=== PATIENT | female | born 1950 | race Caucasian/White ===

== ENCOUNTER 2018-08-08 10:14 | Inpatient (IN) | payer MEDICARE, OTHER ==
[2018-08-08 11:43] VITALS: BMI 38.0
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
--- NOTE | 2018-08-08 12:31 | RAD ---
Date of service: 08/08/2018 HISTORY: pes COMPARISON: 05/05/2018 FINDINGS: LUNGS: No active pulmonary disease. PLEURA: No significant pleural effusion identified, no pneumothorax apparent. CARDIOVASCULAR: No aortic atherosclerotic calcification present. Normal cardiac size. No pulmonary vascular congestion. OSSEOUS STRUCTURES: No significant abnormalities. VISUALIZED UPPER ABDOMEN: Normal. OTHER FINDINGS: None. IMPRESSION: No active disease.
[2018-08-08 13:34] LABS: BASO # 0.01 K/mm3 (0.0-2.0); BASO % 0.1 % (0.0-3.0); EOS # 0.1 (0.0-0.7); EOS % 0.7 % (1.5-5.0); GRAN # 4.81 (1.4-6.5); HEMOGLOBIN 15.5 g/dL (12.0-16.0); LYMPH # 2.3 (1.2-3.4); LYMPH % 30.4 % (22.0-35.0); MEAN CELL VOLUME 90.3 fl (80.0-105.0); MEAN CORPUSCULAR HGB CONC 35.4 g/dl (31.0-37.0); MEAN PLATELET VOLUME 11.5 fl (7.0-11.0); MONO # 0.3 (0.1-0.6); MONO % 3.8 % (1.0-6.0); PH,URINE 6.5 (4.7-8.0); RBC 4.85 10^6/uL (3.5-6.1); RED CELL DISTRIBUTION WIDTH 12.3 % (11.5-14.5); URINE BILIRUBIN NEGATIVE (NEGATIVE); URINE BLOOD NEGATIVE (NEGATIVE); URINE GLUCOSE (UA) NEGATIVE (NEGATIVE); URINE LEUKOCYTE ESTERASE NEGATIVE Leu/uL (NEGATIVE); URINE PROTEIN NEGATIVE mg/dL (<30 mg/dL); URINE UROBILINOGEN 0.2 E.U./dL (<1 E.U./dL); WHITE BLOOD COUNT 7.4 10^3/uL (4.5-11.0)
[2018-08-08 13:35] LABS: URINE APPEARANCE CLEAR (CLEAR); URINE COLOR YELLOW (YELLOW)
[2018-08-08 13:46] LABS: ALB/GLOB RATIO 1.4 (1.1-1.8); ALBUMIN 4.4 g/dL (3.0-4.8); ALT/SGPT 25 U/L (7-56); AST/SGOT 21 U/L (14-36); BLOOD UREA NITROGEN 28 mg/dL (7-21); CALCIUM 9.9 mg/dL (8.4-10.5); GFR NON-AFRICAN AMERICAN > 60
[2018-08-08 13:47] LABS: ACETAMINOPHEN < 10.0 ug/ml (10.0-20.0); SALICYLATE < 1 mg/dL (2.0-20.0)
[2018-08-08 13:59] LABS: BARBITURATES, UR NEGATIVE (NEGATIVE); BENZODIAZEPINES, UR NEGATIVE (NEGATIVE); OPIATES, UR NEGATIVE (NEGATIVE); PHENCYCLIDINE, UR NEGATIVE (NEGATIVE)
[2018-08-08 15:27] VITALS: O2SAT 99
--- NOTE | 2018-08-08 16:54 | CARD ---
APPROVED REPORT Date of service: 08/08/2018 EKG Measurement Heart [id number] <Conclusion> Sinus bradycardia Otherwise normal ECG
--- NOTE | 2018-08-08 18:53 | PCM.BM ---
<Shilpi Dunlap - Last Filed: 08/08/18 18:50> Treatment Plan Problems - Problems identified on initial assessmt ANXIETY Date Initiated: 08/08/18 Time Initiated: 19:00 Assessment reference: NA Status: Active Priority: 1 ALTERED SLEEP PATTERN Date Initiated: 08/08/18 Time Initiated: 19:00 Assessment reference: NA Status: Active Priority: 2 MEDICATION NON ADHERENCE Date Initiated: 08/08/18 Time Initiated: 19:00 Assessment reference: NA Status: Active Priority: 3 INEFFECTIVE IMPULSE CONTROL Date Initiated: 08/08/18 Time Initiated: 19:00 Assessment reference: NA Priority: 4 Treatment assets and liabiliti Patient Assests: cooperative, insightful, motivated, ADL independent, good support system, cognitively intact, strong nicholas Patient Liabilities: live alone, dietary restrictions, medical problems - Milieu Protocol Maintain good personal hygiene: every shift Encourage regular showers, every shift Remind patient to perform daily oral care, every shift Assist patient to perform ADL's Maintain personal safety: daily Educate patient to report safety concerns to staff, daily Monitor environment for contraband/sharps Medication safety: Monitor for expected outcome, potential side effects: daily, Assess barriers to learning: daily, Assess readiness for medication education: daily Discharge/Continuing Care - Education Needs Education Needs: Patient Medication, Patient Diagnosis/Disease Process, Patient Coping Skills, Patient Community resources, Patient Activities of Daily Living, Patient Pain, Patient Nutrition, Patient Health Practices/Safety, Patient Personal Hygiene/Grooming, Patient Aftercare Safety Plan - Discharge Discharge Criteria: Free of agitation, Normal sleep pattern, Ability to care for self Discharge to:: Home <Michelle Montiel - Last Filed: 08/09/18 14:08> - Diagnosis (1) JAYLIN (generalized anxiety disorder) Status: Acute Interventions: Psychoeducation Psychopharmacology/adjustment of medications as needed/ monitoring possible side effects Evaluate pt on daily basis Discussion of importance of being compliant with medications and follow up appointments Suicide and homicide risk assessment and prevention, coping strategies, safety plan Reduction of symptoms Relaxation techniques and breathing exercises Improve functional status Family involvement Cognitive behavioral therapy as outpatient 08/09/18 14:09 (2) Bipolar disorder Status: Acute Interventions: 08/09/18 14:10 Psychoeducation Psychopharmacology/adjustment of medications as needed/ monitoring possible side effects Monitor blood level of mood stabilizers Evaluate pt on daily basis Compliance with medications and follow up appointments Suicide and homicide risk assessment and prevention, coping strategies, safety plan Relapse prevention Reduction of symptoms Improve functional status Family involvement As outpatient: cognitive behavioral therapy <Agnes Morrison Y - Last Filed: 08/10/18 16:09> Family Contact Family involvement: Family/SO is involved Family contact: Patient agrees to contact Family contact name: Pramod Reynaga(son) Family contacted how many times per week?: 2 - Outside Agency [facility] Care involvment: Information-sharing Agency contact name: [facility] Agency contact number: [phone]
[2018-08-08] MEDS: Insulin Lispro (humaLOG) LOW Coverage SC SCH (21:19)
[2018-08-08] MEDS ORDERED: Divalproex 250 mg DR (BID formulation) PO SCH (22:00)
[2018-08-09 07:05] LABS: HDL CHOLESTEROL 48 mg/dL (29-60)
[2018-08-09 07:16] LABS: LDL CHOLESTEROL 185 mg/dL (0-129)
[2018-08-09 07:19] LABS: FREE T4 1.19 ng/dL (0.78-2.19)
[2018-08-09 07:41] VITALS: RESP 20
[2018-08-09] MEDS: Insulin Lispro (humaLOG) LOW Coverage SC SCH ×4 (09:23→21:19)
--- NOTE | 2018-08-09 11:59 | PN ---
DATE: 08/09/2018 SUBJECTIVE: Patient is in [facility], admitted into the behavioral care unit, room 519, bed 2. The patient presented to the emergency room with depression requesting help. Patient also complains of adverse reaction to medication (Abilify). Patient has significant medical history. She is an insulin-dependent diabetic. Patient was treated for hypertension. Patient has history of lower back pain. Patient denied history of any surgery except D and C that is dilatation and curettage, CLAIM TRAINEE procedure. Patient has no past history of cardiac problems. Patient does not have any cardiac history or neurological problem excepting for tremors. Patient requested hemoglobin A1c to be done today and that shows education of knowledge of diabetes mellitus. Patient also alleges to having history of hyperlipidemia. PHYSICAL EXAMINATION: GENERAL: The patient is pleasant, answers all questions, quite alert. HEENT: The patient's head is normocephalic. Patient has no masses or enlargement of orbits. NECK: Thyroid is not enlarged. JVP is flat. No lymphadenopathy. HEART: Normal sinus rhythm. S1, S2 present. Sinus bradycardia. No murmurs. LUNGS: Trachea is central. Breath sounds are vesicular. No adventitious sounds. Respiratory rate is 18 per minute. ABDOMEN: Soft. Liver and spleen not palpable. Obesity present. Truncal obesity. The patient has no masses or enlargement of organs. 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 Cranial nerves II to XII are intact. Patient's motor and sensory function is within normal range. Patient able to ambulate. Her cerebellar functions are okay. There is no overt tremors noted at this time. LABORATORY DATA: Patient's blood work, her white count is 7000, hemoglobin 15.5. Patient's chemistry, patient's blood sugar was 181 yesterday, is 129 today. Patient's potassium is 3.5. Patient's cholesterol is 291. Patient's thyroid function study seemed to be okay. MEDICATIONS: Patient's list of medications. Patient is on ramipril 10 mg daily, Amaryl 4 mg daily, patient is on Celexa 40 mg daily, Depakote 250 mg at night, patient gets aspirin 81 mg daily, insulin coverage, patient is on Januvia 100 mg daily, hydrochlorothiazide is substitute for chlorthalidone, the patient gets 25 mg daily, metoprolol 25 mg daily, Klonopin 0.5 mg twice daily. ASSESSMENT AND PLAN: Patient is overweight and we will continue medical management and follow up on test results. We will request hemoglobin A1c to be done today. Kishor Yen MD [email or web address]
--- NOTE | 2018-08-09 14:08 | PCM.PSYCH ---
Initial Psychiatric Evaluation - Initial Psychiatric Evaluation Type of Admission: Voluntary Legal Status: Capacity (Patient has capacity to sign consent for treatment) Chief Complaint (in patient's own words): "I knew that I need to come to the hospital because I was not doing so well, for the past four weeks I am going downhill, I feel very hopeless, helpless, my f rimarquita said that it is not me, she drove me to the hospital, oh God, I want to see my grand kids growing..." Patient's Reaction to Hospitalization: Pt was admitted for evaluation of depression, uncontrolled anxiety, inability of function, pt stopped taking Abilify due to uncontrolled tremor, feeling of helplessness, hopelessness, worthlessness and guilt. History of Present Illness and Precipitating Events: shortly pt is 68 yo female with reported h/o bipolar disorder, JAYLIN, denied h/o suicidal attempts, denied history of psychiatric admissions, currently pt is under care of [facility] at [facility], pt was brought to ED by her friend, looking for help for worsening depression/anxiety, inability to function. pt needs further evaluation and stabilization. pt was seen and examined at the treatment team meeting, pt appeared older than her chronological age, pt had acceptable personal hygiene, earl/uncombed/curly hair, tearful, anxious, overproductive speech, very hard to interview because patient had difficulties to stay focus and concentrate, pt was ambulating slowly/cautious saying that she has chronic back pain. Patient reported for past 4 weeks she was going "downhill" patient reported that she has difficulty to fall asleep, stay asleep, difficulty to stay focused and concentrate, healing of hopelessness and helplessness, feeling very depressed and "desperate". Patient reported that simple task as taking a shower "making me feel very anxious, I was not showering lately", patient reported that she lost her appetite, does not want to ", not interested in her daily activities. Patient reported that she was trying her best to attend groups at the [facility] but she was not able to participate because "I was crying constantly". Patient denied suicidal ideation denied intent or plan. Patient reported that she feels very anxious, restless, "my mind is racing I cannot stay focused." Patient denied hearing voices, denied seeing things, denied paranoid ideation, patient does not appear to be psychotic. Patient denies using drugs, denied alcohol consumption, denied smoking. Patient denied history of being abused, denied physical, sexual, emotional abuse. Past psychiatric history: Patient denied history of being admitted to the psychiatric inpatient unit, denied history of suicidal attempts. Patient currently under care or of [facility] and [facility], about 6 months ago patient was started on Abilify, "I was not able to tolerate it I developed severe tremor, I stopped taking it, as a result I became very very depressed". Patient reported that her [facility] started cogentin, "but it does not make sense to take medication for another medication". Medical h/o: diabetes, HTN, diabetic neuropathy. Family history: Patient's grandfather was hospitalized into the [facility], had electroconvulsive therapy, patient is not sure if her father had history of suicidal attempts. TRAVON FREEMAN [address] [phone] Depakote ER 250mg PO QHS Abilify 10mg PO QAM Celexa 40mg PO QAM Buspar 10mg 2 TAB PO BID Vistaril 25mg PO QHS As per nursing staff patient is calm, cooperative, no behavioral incidents. 08/08/18 11:30 08/08/18 11:30 Lab Results 08/09/18 07:25: POC Glucose (mg/dL) 129 H 08/09/18 06:15: Triglycerides 133, Cholesterol 291 H, LDL Cholesterol Direct 185 H, HDL Cholesterol 48 08/09/18 06:15: Free T4 1.19, TSH 3rd Generation 2.42 08/08/18 20:25: POC Glucose (mg/dL) 181 H 08/08/18 11:30: Alcohol, Quantitative < 10 08/08/18 11:30: Salicylates < 1 L, Acetaminophen < 10.0 L 08/08/18 11:30: Urine Opiates Screen Negative, Urine Methadone Screen Negative, Ur Barbiturates Screen Negative, Ur Phencyclidine Scrn Negative, Ur Amphetamines Screen Negative, U Benzodiazepines Scrn Negative, U Oth Cocaine Metabols Negative, U Cannabinoids Screen Negative 08/08/18 11:30: Sodium 136, Potassium 3.5 L, Chloride 97 L, Carbon Dioxide 31, Anion Gap 11, BUN 28 H, Creatinine 0.8, Est GFR ( Amer) > 60, Est GFR (Non-Af Amer) > 60, Random Glucose 121 H, Calcium 9.9, Total Bilirubin 0.6, AST 21, ALT 25, Alkaline Phosphatase 48, Total Protein 7.4, Albumin 4.4, Globulin 3.0, Albumin/Globulin Ratio 1.4 08/08/18 11:30: Urine Color Yellow, Urine Appearance Clear, Urine pH 6.5, Ur Specific [place] 1.010, Urine Protein Negative, Urine Glucose (UA) Negative, Urine Ketones Negative, Urine Blood Negative, Urine Nitrate Negative, Urine Bilirubin Negative, Urine Urobilinogen 0.2, Ur Leukocyte Esterase Negative 08/08/18 11:30: WBC 7.4, RBC 4.85, Hgb 15.5, Hct 43.8, MCV 90.3, MCH 32.0, MCHC 35.4, RDW 12.3, Plt Count 224, MPV 11.5 H, Gran % 65.0, Lymph % (Auto) 30.4, [place] % (Auto) 3.8, Eos % (Auto) 0.7 L, Baso % (Auto) 0.1, Gran # 4.81, Lymph # (Auto) 2.3, [place] # (Auto) 0.3, Eos # (Auto) 0.1, Baso # (Auto) 0.01 Vital Signs Temp Pulse Resp BP Pulse Ox 08/09/18 09:30 66 172/74 H 08/09/18 07:40 98.4 F 46 L 20 119/56 L 08/08/18 19:11 55 L 142/65 08/08/18 15:25 99 08/08/18 15:05 66 18 142/50 L 95 08/08/18 11:40 97.8 F 54 L 18 140/83 99 08/08/18 10:30 98.2 F 55 L 18 128/58 L 96 The patient failed the outpatient lower level of care: Yes Current Medications: Active Medications Generic Name Dose Route Start Last Admin Trade Name Freq PRN Reason Stop Dose Admin Aspirin 81 mg 08/09/18 08:00 Ecotrin PO DAILY BRIDGETT Citalopram Hydrobromide 40 mg 08/09/18 08:00 Celexa PO DAILY BRIDGETT Clonazepam 0.5 mg 08/08/18 16:49 Klonopin PO BID PRN Anxiety Protocol Divalproex Sodium 250 mg 08/08/18 22:00 08/08/18 21:21 Juana Brewster (*Bid*) PO 250 mg HS BRIDGETT Administration Protocol Glimepiride 4 mg 08/09/18 08:00 Amaryl PO DAILY BRIDGETT Hydrochlorothiazide 25 mg 08/09/18 08:00 Hydrodiuril PO DAILY BRIDGETT Insulin Human Lispro 0 units 08/08/18 22:00 08/08/18 21:19 Humalog Low SC 1 u ACHS BRIDGETT Administration Protocol Metoprolol Tartrate 25 mg 08/08/18 17:00 08/08/18 19:11 Lopressor PO 25 mg BRKDIN BRIDGETT Administration Ramipril 10 mg 08/09/18 08:00 Altace PO DAILY BRIDGETT Sitagliptin Phosphate 100 mg 08/09/18 08:00 Januvia PO DAILY BRIDGETT Zaleplon 5 mg 08/08/18 16:50 08/08/18 21:19 Sonata PO 5 mg HS PRN Administration Insomnia This radio news writer educated patient about medications, risk/benefits/alternatives discussed, patient agreed with treatment plan Present on Admission - Present on Admission Any Indicators Present on Admission: No Review of Systems - Review of Systems Systems not reviewed;Unavailable: Acuity of Condition - Constitutional Constitutional: As Per HPI - EENT Eyes: As Per HPI Ears: As Per HPI Nose/Mouth/Throat: As Per HPI - Breasts Breasts: As Per HPI - Cardiovascular Cardiovascular: As Per HPI - Respiratory Respiratory: As Per HPI - Gastrointestinal Gastrointestinal: As Per HPI - Genitourinary Genitourinary: As Per HPI - Reproductive: Female Reproductive:Female: As Per HPI - Menstruation Menstruation: As Per HPI - Musculoskeletal Musculoskeletal: As Per HPI - Integumentary Integumentary: As Per HPI - Neurological Neurological: As Per HPI - Psychiatric Psychiatric: As Per HPI - Endocrine Endocrine: As Per HPI - Hematologic/Lymphatic Hematologic: As Per HPI Past Patient History - Past Psychiatric History Previous Treatment History: Intensive Outpatient Prior Professional Help: As per HPI Prior Psychiatric Treatment: As per HPI At [facility] hospital: As per HPI Duration: As per HPI Nature of Treatment: As per HPI Explanation of prior treatment: As per HPI - PSYCHIATRIC Hx Psychophysiologic Disorder: Yes Hx Bipolar Disorder: Yes Hx Substance Use: No - Infectious Disease Hx of Infectious Diseases: None - CARDIAC Hx Cardiac Disorders: No Hx Hypertension: Yes Hx Pacemaker: No - PULMONARY Hx Respiratory Disorders: No - NEUROLOGICAL HX Cerebrovascular Accident: Yes (1997) Hx Paralysis: No Hx Transient Ischemic Attacks (TIA): Yes (1997) - RENAL Hx Chronic Kidney Disease: No - ENDOCRINE/METABOLIC Hx Endocrine Disorders: No Hx Diabetes Mellitus Type 1: Yes - HEMATOLOGICAL/ONCOLOGICAL Hx Blood Transfusions: No Hx Blood Transfusion Reaction: No - MUSCULOSKELETAL/RHEUMATOLOGICAL Hx Musculoskeletal Disorders: Yes Hx Back Pain: Yes - GENITOURINARY/GYNECOLOGICAL Hx Sexually Transmitted Disorders: No - SURGICAL HISTORY Hx Surgeries: Yes - ANESTHESIA Hx Anesthesia Reactions: No Hx Malignant Hyperthermia: No - Medical/Surgical History Reviewed & confirmed: by az Meds Allergies/Adverse Reactions: Allergies Allergy/AdvReac Type Severity Reaction Status Date / Time No Known Allergies Allergy Verified 08/08/18 20:12 Mental Status Examination - Personal Presentation Personal Presentation: Looks older than stated age - Affect Affect: Flat (And tearful) - Motor Activity Motor Activity: Calm - Reliability in Providing Information Reliability in Providing Information: Fair - Speech Speech: Other (Overproductive) - Mood Mood: Depressed, Anxious - Formal Thought Process Formal Thought Process: No Impairment - Obsessions/Compulsions Obsessions: None Compulsions: None - Cognitive Functions Orientation: Person, Place, Situation, Time Sensorium: Alert Attention/Concentration: Easily distracted Estimate of Intelligence: Average Judgement: Intact, as evidence by: Insight regarding need for hospitalization - Risk Risk: Self-mutilation, Diminished functioning - Strength & Assets Inventory Strength & Assets Inventory: Intelligence, Family support, Spiritual affiliations, Life experience, Cooperative, Other (No psychosis, good compliance) - Limitations Limitations: Other (Severe symptoms) Psychiatric Physical Exam - Physical Exam Reviewed and confirmed: Emergency Department Physical Exam Results - Vital Signs Recent Vital Signs: Last Vital Signs Temp 98.4 F 08/09/18 07:40 Pulse 46 L 08/09/18 07:40 Resp 20 08/09/18 07:40 BP 119/56 L 08/09/18 07:40 Pulse Ox 99 08/08/18 15:25 - Labs Result Diagrams: 08/08/18 11:30 08/08/18 11:30 Labs: Laboratory Results - last 24 hr 08/08/18 08/08/18 08/08/18 11:30 11:30 11:30 WBC 7.4 RBC 4.85 Hgb 15.5 Hct 43.8 MCV 90.3 MCH 32.0 MCHC 35.4 RDW 12.3 Plt Count 224 MPV 11.5 H Gran % 65.0 Lymph % (Auto) 30.4 [place] % (Auto) 3.8 Eos % (Auto) 0.7 L Baso % (Auto) 0.1 Gran # 4.81 Lymph # (Auto) 2.3 [place] # (Auto) 0.3 Eos # (Auto) 0.1 Baso # (Auto) 0.01 Sodium 136 Potassium 3.5 L Chloride 97 L Carbon Dioxide 31 Anion Gap 11 BUN 28 H Creatinine 0.8 Est GFR ( Amer) > 60 Est GFR (Non-Af Amer) > 60 POC Glucose (mg/dL) Random Glucose 121 H Calcium 9.9 Total Bilirubin 0.6 AST 21 ALT 25 Alkaline Phosphatase 48 Total Protein 7.4 Albumin 4.4 Globulin 3.0 Albumin/Globulin Ratio 1.4 Triglycerides Cholesterol LDL Cholesterol Direct HDL Cholesterol Free T4 TSH 3rd Generation Urine Color Yellow Urine Appearance Clear Urine pH 6.5 Ur Specific [place] 1.010 Urine Protein Negative Urine Glucose (UA) Negative Urine Ketones Negative Urine Blood Negative Urine Nitrate Negative Urine Bilirubin Negative Urine Urobilinogen 0.2 Ur Leukocyte Esterase Negative Salicylates Urine Opiates Screen Urine Methadone Screen Acetaminophen Ur Barbiturates Screen Ur Phencyclidine Scrn Ur Amphetamines Screen U Benzodiazepines Scrn U Oth Cocaine Metabols U Cannabinoids Screen Alcohol, Quantitative 08/08/18 08/08/18 08/08/18 11:30 11:30 11:30 WBC RBC Hgb Hct MCV MCH MCHC RDW Plt Count MPV Gran % Lymph % (Auto) [place] % (Auto) Eos % (Auto) Baso % (Auto) Gran # Lymph # (Auto) [place] # (Auto) Eos # (Auto) Baso # (Auto) Sodium Potassium Chloride Carbon Dioxide Anion Gap BUN Creatinine Est GFR ( Amer) Est GFR (Non-Af Amer) POC Glucose (mg/dL) Random Glucose Calcium Total Bilirubin AST ALT Alkaline Phosphatase Total Protein Albumin Globulin Albumin/Globulin Ratio Triglycerides Cholesterol LDL Cholesterol Direct HDL Cholesterol Free T4 TSH 3rd Generation Urine Color Urine Appearance Urine pH Ur Specific [place] Urine Protein Urine Glucose (UA) Urine Ketones Urine Blood Urine Nitrate Urine Bilirubin Urine Urobilinogen Ur Leukocyte Esterase Salicylates < 1 L Urine Opiates Screen Negative Urine Methadone Screen Negative Acetaminophen < 10.0 L Ur Barbiturates Screen Negative Ur Phencyclidine Scrn Negative Ur Amphetamines Screen Negative U Benzodiazepines Scrn Negative U Oth Cocaine Metabols Negative U Cannabinoids Screen Negative Alcohol, Quantitative < 10 08/08/18 08/09/18 08/09/18 20:25 06:15 06:15 WBC RBC Hgb Hct MCV MCH MCHC RDW Plt Count MPV Gran % Lymph % (Auto) [place] % (Auto) Eos % (Auto) Baso % (Auto) Gran # Lymph # (Auto) [place] # (Auto) Eos # (Auto) Baso # (Auto) Sodium Potassium Chloride Carbon Dioxide Anion Gap BUN Creatinine Est GFR ( Amer) Est GFR (Non-Af Amer) POC Glucose (mg/dL) 181 H Random Glucose Calcium Total Bilirubin AST ALT Alkaline Phosphatase Total Protein Albumin Globulin Albumin/Globulin Ratio Triglycerides 133 Cholesterol 291 H LDL Cholesterol Direct 185 H HDL Cholesterol 48 Free T4 1.19 TSH 3rd Generation 2.42 Urine Color Urine Appearance Urine pH Ur Specific [place] Urine Protein Urine Glucose (UA) Urine Ketones Urine Blood Urine Nitrate Urine Bilirubin Urine Urobilinogen Ur Leukocyte Esterase Salicylates Urine Opiates Screen Urine Methadone Screen Acetaminophen Ur Barbiturates Screen Ur Phencyclidine Scrn Ur Amphetamines Screen U Benzodiazepines Scrn U Oth Cocaine Metabols U Cannabinoids Screen Alcohol, Quantitative 08/09/18 07:25 WBC RBC Hgb Hct MCV MCH MCHC RDW Plt Count MPV Gran % Lymph % (Auto) [place] % (Auto) Eos % (Auto) Baso % (Auto) Gran # Lymph # (Auto) [place] # (Auto) Eos # (Auto) Baso # (Auto) Sodium Potassium Chloride Carbon Dioxide Anion Gap BUN Creatinine Est GFR ( Amer) Est GFR (Non-Af Amer) POC Glucose (mg/dL) 129 H Random Glucose Calcium Total Bilirubin AST ALT Alkaline Phosphatase Total Protein Albumin Globulin Albumin/Globulin Ratio Triglycerides Cholesterol LDL Cholesterol Direct HDL Cholesterol Free T4 TSH 3rd Generation Urine Color Urine Appearance Urine pH Ur Specific [place] Urine Protein Urine Glucose (UA) Urine Ketones Urine Blood Urine Nitrate Urine Bilirubin Urine Urobilinogen Ur Leukocyte Esterase Salicylates Urine Opiates Screen Urine Methadone Screen Acetaminophen Ur Barbiturates Screen Ur Phencyclidine Scrn Ur Amphetamines Screen U Benzodiazepines Scrn U Oth Cocaine Metabols U Cannabinoids Screen Alcohol, Quantitative - EKG Data EKG Interpreted by: ER Physician DSM Plan - DSM 5 DSM 5 Diagnosis: Bipolar disorder as per history, most recent episode is depressed Rule out generalized anxiety disorder - Recommended/Plan of Treatment Treatment Recommendations and Plan of Treatment: Milieu/structure/supportive therapy Medical consult appreciated, see medical team note for more detailed info SW consultation for discharge plan and social issues Med management BuSpar will discontinued Celexa will be weaned off, today will be 20 mg Prozac 10 mg was started for depression and anxiety Klonopin 0.25 mg twice a day as needed for anxiety Sonata 10 mg at the nighttime for insomnia Depakote will be increased to 500 mg at the nighttime and will be switched to extended release Family involvement Follow up on labs Will monitor closely Pt was educated about risk/benefits and alternatives of medications, coping strategies (safety plan, suicide prevention), relapse prevention, importance of follow up with psychiatrist and therapist, stay away from drugs/alcohol/smoking Projected ELOS: 7 days Prognosis: Fair Discharge Plan and Discharge Criteria: Pt will be not depressed or manic, will be more hopeful, will be not psychotic or anxious, will be not having thoughts of harming self or others, will be tolerating medications well, will not have major side effects, will be able to function, will not pose threat to self or others. - Tobacco Cessation Tobacco Use Status for the last 30 days: Non User Tobacco Use Treatment Practical Counseling Provided: No Tobacco Use Treatment FDA-Approved Cessation Medication Provided: No - Alcohol or Substance Abuse Does the patient have an Alcohol or Substance Abuse Disorder: No Initial Psych Certification - Initial Certification I certify that the inpatient psychiatric facility admission was medically necessary for either: Treatment which could reasonbly be expected to improve pt's condition, Diagnostic study I estimate of hospitalization is necessary for proper treatment of the patient: 7 Unit of Time: Days My plans for post-hospital care for this patient are: Patient will follow up with psychiatrist as well as group therapy as well as individual therapy
[2018-08-09] MEDS: Divalproex 500 mg ER (ONCE DAILY formulation) PO SCH (21:12)
[2018-08-10] MEDS: Insulin Lispro (humaLOG) LOW Coverage SC SCH ×4 (08:00→21:39)
--- NOTE | 2018-08-10 10:01 | PN ---
DATE: 08/10/2018 SUBJECTIVE: The patient is a 68-year-old female, who is in the Behavioral Care Unit, [facility], room 519, bed 2. This patient was admitted with adverse reaction of medication, depression, bipolar disorder, history of diabetes, and hypertension. She also has history of hyperlipidemia, has past history of [employer] procedure (D and C). The patient has no coronary artery disease history, has no history of any chronic pulmonary disease. The patient was seen this morning, lying in bed. She is comfortable. She is pleasant. The report regarding the hemoglobin A1c which is 6.4 which is excellent for her. PHYSICAL EXAMINATION: VITAL SIGNS: The patient's pulse is 50, blood pressure 132/77, and respirations are 20. HEENT: The patient's head is normocephalic. NECK: The thyroid is not enlarged. JVP is flat. LUNGS: Clear. HEART: Normal sinus rhythm. S1 and S2 present. ABDOMEN: Soft. Liver and spleen are not palpable. CENTRAL NERVOUS SYSTEM: No focal deficits are noted. LABORATORY DATA: The patient's lab work; the chemistry, blood sugar this morning was 199. MEDICATIONS: This patient's list of medications, the patient is on. Currently, the patient is on; ramipril which is 10 mg daily. The patient is on Amaryl 4 mg daily. The patient is on Celexa 10 mg daily, Depakote 500 mg at night, aspirin 81 mg daily, insulin coverage for diabetes. The patient is on Januvia 100 mg daily, hydrochlorothiazide 25 mg daily, Klonopin 0.25 mg b.i.d., and metoprolol 25 mg b.i.d. The patient is also getting Prozac 10 mg daily and Sonata 10 mg daily. The patient's condition seemed to be pretty stable and she is continuing her medications and we will follow up medically. Kishor Yen MD MTDSiri
--- NOTE | 2018-08-10 14:42 | PCM.PYCHPN ---
Psychiatric Progress Note - Psychiatric Progress Note Patient seen today, length of contact: 30 minutes Patient Chief Complaint: "I think that I am doing a little better, I slept relatively well, I think that I do like Prozac" Problems Identified/Issues Discussed: Suicide/ homicide prevention, past psychiatric h/o, current psychiatric symptoms, medical problems, risk/benefits and alternatives of medications, medications compliance, coping strategies, substance abuse h/o, relapse prevention, importance of follow up with psychiatrist and therapist, discharge plan. Medical Problems: See HPI Diagnostic Results: 08/08/18 11:30 08/08/18 11:30 Lab Results 08/10/18 06:10: Valproic Acid 23 L 08/09/18 21:06: POC Glucose (mg/dL) 199 H 08/09/18 16:24: POC Glucose (mg/dL) 100 08/09/18 11:12: POC Glucose (mg/dL) 191 H 08/09/18 08:11: Hemoglobin A1c 6.4 08/09/18 07:25: POC Glucose (mg/dL) 129 H 08/09/18 06:15: Triglycerides 133, Cholesterol 291 H, LDL Cholesterol Direct 185 H, HDL Cholesterol 48 08/09/18 06:15: Free T4 1.19, TSH 3rd Generation 2.42 08/09/18 06:15: RPR Nonreactive 08/08/18 20:25: POC Glucose (mg/dL) 181 H 08/08/18 11:30: Alcohol, Quantitative < 10 08/08/18 11:30: Salicylates < 1 L, Acetaminophen < 10.0 L 08/08/18 11:30: Urine Opiates Screen Negative, Urine Methadone Screen Negative, Ur Barbiturates Screen Negative, Ur Phencyclidine Scrn Negative, Ur Amphetamines Screen Negative, U Benzodiazepines Scrn Negative, U Oth Cocaine Metabols Negative, U Cannabinoids Screen Negative 08/08/18 11:30: Sodium 136, Potassium 3.5 L, Chloride 97 L, Carbon Dioxide 31, Anion Gap 11, BUN 28 H, Creatinine 0.8, Est GFR ( Amer) > 60, Est GFR (Non-Af Amer) > 60, Random Glucose 121 H, Calcium 9.9, Total Bilirubin 0.6, AST 21, ALT 25, Alkaline Phosphatase 48, Total Protein 7.4, Albumin 4.4, Globulin 3.0, Albumin/Globulin Ratio 1.4 08/08/18 11:30: Urine Color Yellow, Urine Appearance Clear, Urine pH 6.5, Ur Specific [place] 1.010, Urine Protein Negative, Urine Glucose (UA) Negative, Urine Ketones Negative, Urine Blood Negative, Urine Nitrate Negative, Urine Bilirubin Negative, Urine Urobilinogen 0.2, Ur Leukocyte Esterase Negative 08/08/18 11:30: WBC 7.4, RBC 4.85, Hgb 15.5, Hct 43.8, MCV 90.3, MCH 32.0, MCHC 35.4, RDW 12.3, Plt Count 224, MPV 11.5 H, Gran % 65.0, Lymph % (Auto) 30.4, [place] % (Auto) 3.8, Eos % (Auto) 0.7 L, Baso % (Auto) 0.1, Gran # 4.81, Lymph # (Auto) 2.3, [place] # (Auto) 0.3, Eos # (Auto) 0.1, Baso # (Auto) 0.01 Vital Signs Temp Pulse Resp BP Pulse Ox 08/10/18 09:02 60 128/74 08/10/18 07:21 98.4 F 50 L 20 132/77 08/09/18 17:57 55 L 136/71 08/09/18 16:00 49 L 109/70 08/09/18 09:30 66 172/74 H 08/09/18 07:40 98.4 F 46 L 20 119/56 L 08/08/18 19:11 55 L 142/65 08/08/18 15:25 99 08/08/18 15:05 66 18 142/50 L 95 08/08/18 11:40 97.8 F 54 L 18 140/83 99 08/08/18 10:30 98.2 F 55 L 18 128/58 L 96 DSM 5 Symptoms Update: shortly pt is 68 yo female with reported h/o bipolar disorder, JAYLIN, denied h/o suicidal attempts, denied history of psychiatric admissions, currently pt is under care of [facility] [employer] [facility]BLER at [facility], pt was brought to ED by her friend, looking for help for worsening depression/anxiety, inability to function. pt needs further evaluation and stabilization. pt was seen and examined at the treatment team meeting, pt appeared older than her chronological age, pt had acceptable personal hygiene, earl/uncombed/curly hair, was less tearful compared with yesterday, patient was less anxious, but still depressed. Patient reported that she still had difficulty to fall asleep and to stay asleep, patient was not able to sleep until Klonopin was given, this senior grant writer suggested to discontinue Sonata and start Klonopin dose. Patient is willing to be weaned off from Celexa, the patient got her last dose today, Prozac was increased to 20 mg sudheer. So far patient tolerates medications well, no side effects observed or reported, aims 0, no EPS. Impression: Patient has history of bipolar disorder, most recent episode depressed, severe, with no psychosis Medication Change: Yes (Celexa discontinued, Prozac increased) Medical Record Reviewed: Yes Consults ordered or reviewed: Medical consult appreciated, see notes for more detailed information Mental Status Examination - Cognitive Function Orientation: Person, Place, Situation, Time Memory: Intact Attention: Poor Concentration: Poor Association: WNL Fund of Knowledge: WNL - Mood Mood: Depressed, Anxious - Affect Affect: Flat (And tearful) - Formal Thought Process Formal Thought Process: No Impairment - Suicidal Ideation Suicidal Ideation: No - Homicidal Ideation Homicidal Ideation: No Goal/Treatment Plan - Goal/Treatment Plan Need for Continued Stay: Remain at risks for inpatient hospitalization, Severe depression anxiety, Discharge may exacerbated symptoms, Severe functional impairment Progress Toward Problem(s) and Goals/Treatment Plan: Milieu/structure/supportive therapy Medical consult appreciated, see medical team note for more detailed info SW consultation for discharge plan and social issues Med management BuSpar will discontinued Celexa discontinued Prozac 20 mg was started for depression and anxiety Klonopin 0.25 mg twice a day and that the nighttime as needed for anxiety Sonata will be discontinued Depakote ER 500 mg at the nighttime for mood stabilization Family involvement Follow up on labs Will monitor closely Pt was educated about risk/benefits and alternatives of medications, coping strategies (safety plan, suicide prevention), relapse prevention, importance of follow up with psychiatrist and therapist, stay away from drugs/alcohol/smoking Estimated Date of D/C: 08/15/18
[2018-08-10] MEDS: Divalproex 500 mg ER (ONCE DAILY formulation) PO SCH (21:26)
[2018-08-11] MEDS: Insulin Lispro (humaLOG) LOW Coverage SC SCH ×3 (09:44→21:30)
--- NOTE | 2018-08-11 09:54 | CP.PCM.PN ---
Subjective - Date & Time of Evaluation Date of Evaluation: 08/11/18 Time of Evaluation: 08:00 - Subjective Subjective: Patient is seen this morning. She is feeling better with adjustment of her meds. She says she had tremors from Abilify but since being off the Abilify, she has not experienced any tremors. Objective - Vital Signs/Intake and Output Vital Signs (last 24 hours): Temp Pulse Resp BP Pulse Ox 98.5 F 55 L 20 121/82 99 08/11/18 07:40 08/11/18 07:40 08/11/18 07:40 08/11/18 07:40 08/08/18 15:25 - Medications Medications: Current Medications Aspirin (Ecotrin) 81 mg PO DAILY [facility] Last Admin: 08/10/18 09:04 Dose: 81 mg Clonazepam (Klonopin) 0.25 mg PO BID PRN; Protocol PRN Reason: Anxiety Last Admin: 08/10/18 01:57 Dose: 0.25 mg Clonazepam (Klonopin) 0.25 mg PO HS [facility]; Protocol Last Admin: 08/10/18 21:26 Dose: 0.25 mg Divalproex Sodium (Depakote Er(Once Daily)) 500 mg PO HS [facility]; Protocol Last Admin: 08/10/18 21:26 Dose: 500 mg Fluoxetine HCl (Prozac) 20 mg PO DAILY [facility] Glimepiride (Amaryl) 4 mg PO DAILY [facility] Last Admin: 08/10/18 09:04 Dose: 4 mg Hydrochlorothiazide (Hydrodiuril) 25 mg PO DAILY [facility] Last Admin: 08/10/18 09:01 Dose: 25 mg Insulin Human Lispro (Humalog Low) 0 units [facility]; Protocol Last Admin: 08/10/18 21:39 Dose: Not Given Metoprolol Tartrate (Lopressor) 25 mg PO BRKDIN [facility] Last Admin: 08/10/18 18:22 Dose: 25 mg Ramipril (Altace) 10 mg PO DAILY [facility] Last Admin: 08/10/18 09:02 Dose: 10 mg Sitagliptin Phosphate (Januvia) 100 mg PO DAILY [facility] Last Admin: 08/10/18 09:04 Dose: 100 mg - Labs Labs: 08/08/18 11:30 08/08/18 11:30 - Constitutional Appears: No Acute Distress - Head Exam Head Exam: ATRAUMATIC, NORMOCEPHALIC - Respiratory Exam Respiratory Exam: Clear to Ausculation Bilateral, NORMAL BREATHING PATTERN - Cardiovascular Exam Cardiovascular Exam: REGULAR RHYTHM, +S1, +S2 - Extremities Exam Extremities Exam: Normal Inspection - Neurological Exam Neurological Exam: Alert, Awake, Oriented x3 Assessment and Plan - Assessment and Plan (Free Text) Assessment: Diabetes mellitus HTN HLP Bipolar disorder/depression Plan: Patient's sugar is well controlled. Her HbA1c is 6.4. Patient's cholesterol is high, we will add a statin continue treatment for depression/bipolar as per Dr. Martinez
[2018-08-11] MEDS ORDERED: Divalproex 250 mg ER (ONCE DAILY formulation) PO SCH (15:00)
--- NOTE | 2018-08-11 15:05 | PCM.PYCHPN ---
Psychiatric Progress Note - Psychiatric Progress Note Patient seen today, length of contact: 30 minutes Patient Chief Complaint: "Can you decrease the dose of Depakote at the nighttime, I feel jittery?" Problems Identified/Issues Discussed: Suicide/ homicide prevention, past psychiatric h/o, current psychiatric symptoms, medical problems, risk/benefits and alternatives of medications, medications compliance, coping strategies, substance abuse h/o, relapse prevention, importance of follow up with psychiatrist and therapist, discharge plan. Medical Problems: See HPI Diagnostic Results: 08/08/18 11:30 08/08/18 11:30 Lab Results 08/10/18 06:10: Valproic Acid 23 L 08/09/18 21:06: POC Glucose (mg/dL) 199 H 08/09/18 16:24: POC Glucose (mg/dL) 100 08/09/18 11:12: POC Glucose (mg/dL) 191 H 08/09/18 08:11: Hemoglobin A1c 6.4 08/09/18 07:25: POC Glucose (mg/dL) 129 H 08/09/18 06:15: Triglycerides 133, Cholesterol 291 H, LDL Cholesterol Direct 185 H, HDL Cholesterol 48 08/09/18 06:15: Free T4 1.19, TSH 3rd Generation 2.42 08/09/18 06:15: RPR Nonreactive 08/08/18 20:25: POC Glucose (mg/dL) 181 H 08/08/18 11:30: Alcohol, Quantitative < 10 08/08/18 11:30: Salicylates < 1 L, Acetaminophen < 10.0 L 08/08/18 11:30: Urine Opiates Screen Negative, Urine Methadone Screen Negative, Ur Barbiturates Screen Negative, Ur Phencyclidine Scrn Negative, Ur Amphetamines Screen Negative, U Benzodiazepines Scrn Negative, U Oth Cocaine Metabols Negative, U Cannabinoids Screen Negative 08/08/18 11:30: Sodium 136, Potassium 3.5 L, Chloride 97 L, Carbon Dioxide 31, Anion Gap 11, BUN 28 H, Creatinine 0.8, Est GFR ( Amer) > 60, Est GFR (Non-Af Amer) > 60, Random Glucose 121 H, Calcium 9.9, Total Bilirubin 0.6, AST 21, ALT 25, Alkaline Phosphatase 48, Total Protein 7.4, Albumin 4.4, Globulin 3.0, Albumin/Globulin Ratio 1.4 08/08/18 11:30: Urine Color Yellow, Urine Appearance Clear, Urine pH 6.5, Ur Specific [place] 1.010, Urine Protein Negative, Urine Glucose (UA) Negative, Urine Ketones Negative, Urine Blood Negative, Urine Nitrate Negative, Urine Bilirubin Negative, Urine Urobilinogen 0.2, Ur Leukocyte Esterase Negative 08/08/18 11:30: WBC 7.4, RBC 4.85, Hgb 15.5, Hct 43.8, MCV 90.3, MCH 32.0, MCHC 35.4, RDW 12.3, Plt Count 224, MPV 11.5 H, Gran % 65.0, Lymph % (Auto) 30.4, [place] % (Auto) 3.8, Eos % (Auto) 0.7 L, Baso % (Auto) 0.1, Gran # 4.81, Lymph # ( Auto) 2.3, [place] # (Auto) 0.3, Eos # (Auto) 0.1, Baso # (Auto) 0.01 Vital Signs Temp Pulse Resp BP Pulse Ox 08/10/18 09:02 60 128/74 08/10/18 07:21 98.4 F 50 L 20 132/77 08/09/18 17:57 55 L 136/71 08/09/18 16:00 49 L 109/70 08/09/18 09:30 66 172/74 H 08/09/18 07:40 98.4 F 46 L 20 119/56 L 08/08/18 19:11 55 L 142/65 08/08/18 15:25 99 08/08/18 15:05 66 18 142/50 L 95 08/08/18 11:40 97.8 F 54 L 18 140/83 99 08/08/18 10:30 98.2 F 55 L 18 128/58 L 96 DSM 5 Symptoms Update: shortly pt is 68 yo female with reported h/o bipolar disorder, JAYLIN, denied h/o suicidal attempts, denied history of psychiatric admissions, currently pt is under care of [employer] DEVELOPER at [facility], pt was brought to ED by her friend, looking for help for worsening depression/anxiety, inability to function. pt needs further evaluation and stabilization. pt was seen and examined at the dining area, patient presented calm, patient reported that she slept well last night but was feeling "jittery", patient asked Depakote to be decreased, patient reported that she still feels depressed, easily tearful, but within 1 second patient will wipe her tears and smiled to this contract writer. Patient reported that she feels "less anxious, but still depressed, look at me, I am crying with no reasons".... Patient reported that she sleeps little bit better on Klonopin. Celexa was discontinued yesterday, patient tolerated that well. So far patient tolerates medications well, no side effects observed or reported, aims 0, no EPS. Impression: Patient has history of bipolar disorder, most recent episode depressed, severe, with no psychosis Medication Change: Yes (Depakote decreased) Medical Record Reviewed: Yes Mental Status Examination - Cognitive Function Orientation: Person, Place, Situation, Time Memory: Intact Attention: Poor Concentration: Poor Association: WNL Fund of Knowledge: WNL - Mood Mood: Depressed, Anxious - Affect Affect: Flat (And tearful) - Formal Thought Process Formal Thought Process: No Impairment - Suicidal Ideation Suicidal Ideation: No - Homicidal Ideation Homicidal Ideation: No Goal/Treatment Plan - Goal/Treatment Plan Need for Continued Stay: Remain at risks for inpatient hospitalization, Severe depression anxiety, Discharge may exacerbated symptoms, Severe functional impairment Progress Toward Problem(s) and Goals/Treatment Plan: Milieu/structure/supportive therapy Medical consult appreciated, see medical team note for more detailed info SW consultation for discharge plan and social issues Med management BuSpar will discontinued Celexa discontinued Prozac 20 mg was started for depression and anxiety Klonopin 0.25 mg twice a day and that the nighttime as needed for anxiety Sonata will be discontinued Depakote ER 250 mg at the nighttime for mood stabilization Family involvement Follow up on labs Will monitor closely Pt was educated about risk/benefits and alternatives of medications, coping strategies (safety plan, suicide prevention), relapse prevention, importance of follow up with psychiatrist and therapist, stay away from drugs/alcohol/smoking Estimated Date of D/C: 08/15/18
[2018-08-12 07:36] VITALS: BP 148/99; PULSE 46; TEMP 97.6
[2018-08-12 07:56] LABS: BLOOD UREA NITROGEN 23 mg/dL (7-21); CALCIUM 9.2 mg/dL (8.4-10.5); GFR NON-AFRICAN AMERICAN > 60
[2018-08-12] MEDS: Insulin Lispro (humaLOG) LOW Coverage SC SCH ×2 (08:13→14:51)
--- NOTE | 2018-08-12 10:54 | PN ---
DATE: 08/12/2018 LOCATION: The patient is seen in the [facility] Care Unit. The patient is in room 519, bed 2. SUBJECTIVE: The patient is sitting in the solarium today. She feels comfortable and cheerful. She has no active complaints, but she told me that she did not want to take the Lipitor that was ordered for her hyperlipidemia. I explained to her the need for her on the Lipitor because of the diabetes and the risk for coronary artery disease. She said she will think about it. PHYSICAL EXAMINATION: The patient is seen. VITAL SIGNS: Her vital signs today; blood pressure 114/99, and respirations are 20. HEENT: The patient's head is normocephalic. NECK: The thyroid is not enlarged. HEART: Normal sinus rhythm. S1 and S2 present. LUNGS: Clear. ABDOMEN: Soft. Liver and spleen are not palpable. CENTRAL NERVOUS SYSTEM: The patient is conscious, rationale, and oriented. No focal deficits are noted. MEDICATIONS: The patient's list of medications consists of Altace 10 mg daily. The patient is on Amaryl 4 mg daily, Depakote 250 mg at night. The patient gets aspirin 81 mg daily, insulin coverage for diabetes, Januvia 100 mg daily for diabetes. The patient is on Klonopin 0.25 mg twice a day and 0.25 mg at bedtime. The patient is also on Lipitor 20 mg b.i.d. which patient refuses to take. The patient is on metoprolol 25 mg b.i.d. and Prozac 20 mg daily. DIET: Heart healthy diet, diabetic. ASSESSMENT AND PLAN: The patient will continue current medical management and we will follow up the patient on the Behavioral Care Unit. The behavioral care unit physician will follow up on behavioral care issues. The patient wants to go home as she feels she is better. We will wait for the psychiatrist, Dr. Martinez, to take care of that. Kishor Yen MD [facility]DR[facility]
== END 2018-08-12 17:02 | disposition home or self-care (01) | DRG 885 ==
LOC: ED 10:14 → ERH 14:23 → PSYC 15:43
PROVIDERS: ADMIT Psychiatry & Neurology Psychiatry; ATTEND Psychiatry & Neurology Psychiatry
DX: F31.4 Bipolar disorder, current episode depressed, severe, without psychotic features (principal); F41.1 Generalized anxiety disorder; E10.40 Type 1 diabetes mellitus with diabetic neuropathy, unspecified; E66.3 Overweight; E78.5 Hyperlipidemia, unspecified; I10 Essential (primary) hypertension; Z79.4 Long term (current) use of insulin; Z79.82 Long term (current) use of aspirin; Z86.73 Personal history of transient ischemic attack (TIA), and cerebral infarction without residual deficits; Z91.14 Patient's other noncompliance with medication regimen

== ENCOUNTER 2018-09-09 08:37 | Inpatient (IN) | payer MEDICARE, OTHER ==
[2018-09-09 08:50] VITALS: BMI 37.3
--- NOTE | 2018-09-09 09:00 | ED PDOC ---
Arrival/HPI - General Chief Complaint: Anxiety Time Seen by Provider: 09/09/18 08:41 Historian: Patient - History of Present Illness Narrative History of Present Illness (Text): 09/09/18 08:56 A 68 year old female, whose past medical history includes bipolar disorder, presents to the emergency department with a complaint of depression and anxiety, Patient was discharged from the psychiatric floor 1 month ago. She is requesting Klonopin and Prozac. Patient states that she had an appointment with Dr. Zamorano this past week, but it was cancelled. She called [facility] this morning and they told her to come in for further evaluation. The patient is a non- smoker/ non- drinker. She denies fevers, chills, headache, dizziness, chest pain, shortness of breath, dyspnea on exertion, cough, abdominal pain, nausea, vomiting, diarrhea, back pain, neck pain, urinary/bowel changes, suicidal/homicidal ideation, or any other complaint. Symptom Onset: Sudden Symptom Course: Unchanged Activities at Onset: Rest, Light Context: Home Associated Symptoms (Text): 09/09/18 09:07 Depression and anxiety. Denies suicidal or homicidal ideation. Discharge from the psychiatric floor approximately one month ago. Patient reports she is running low on her medications and spoke with crisis who directed her to the emergency department for [facility] evaluation. Past Medical History - Provider Review Nursing Documentation Reviewed: Yes - Infectious Disease Hx of Infectious Diseases: None - Reproductive Menopause: Yes - Cardiac Hx Cardiac Disorders: No Hx Hypertension: Yes Hx Pacemaker: No - Pulmonary Hx Respiratory Disorders: No - Neurological HX Cerebrovascular Accident: Yes (1997) Hx Paralysis: No Hx Transient Ischemic Attacks (TIA): Yes (1997) - Renal Hx Renal Disorder: No - Endocrine/Metabolic Hx Endocrine Disorders: No Hx Diabetes Mellitus Type 1: Yes - Hematological/Oncological Hx Blood Transfusions: No Hx Blood Transfusion Reaction: No - Musculoskeletal/Rheumatological Hx Musculoskeletal Disorders: Yes Hx Back Pain: Yes - Genitourinary/Gynecological Hx Sexually Transmitted Diseases: No - Psychiatric Hx Psychophysiologic Disorder: Yes Hx Bipolar Disorder: Yes Hx Substance Use: No - Anesthesia Hx Anesthesia Reactions: No Hx Malignant Hyperthermia: No - Suicidal Assessment Feels Threatened In Home Enviroment: No Family/Social History - Physician Review Nursing Documentation Reviewed: Yes Family/Social History: No Known Family HX Smoking Status: Former Smoker Hx Alcohol Use: No Hx Substance Use: No Allergies/Home Meds Allergies/Adverse Reactions: Allergies No Known Allergies Allergy (Verified 08/08/18 20:12) Home Medications: Home Meds Medication Instructions Recorded Confirmed Aspirin 81 mg PO DAILY 04/24/15 08/08/18 Glimepiride [amaRYL] 4 mg PO QAM 04/24/15 08/08/18 Metoprolol Tartrate [Lopressor] 25 mg PO BID 04/24/15 08/08/18 Ramipril [Altace] 10 mg PO BID 04/24/15 08/08/18 Chlorthalidone [Hygroton] 25 mg PO DAILY 08/08/18 08/08/18 Insulin Glargine/Lixisenatide 0 ml SQ HS 08/08/18 08/08/18 [Soliqua 100 Unit-33 Mcg/ml Pen] Review of Systems - Physician Review All systems were reviewed & negative as marked: Yes - Review of Systems Constitutional: absent: Fatigue, Fevers Respiratory: absent: SOB, Cough Cardiovascular: absent: Chest Pain, BHATIA Gastrointestinal: absent: Abdominal Pain, Stool Changes, Diarrhea, Nausea, Vomiting Genitourinary Female: absent: Urine Output Changes Musculoskeletal: absent: Back Pain, Neck Pain Neurological: absent: Headache, Dizziness Psychiatric: Anxiety, Depression. absent: Suicidal Ideation Physical Exam Vital Signs Reviewed: Yes Vital Signs Temp Pulse Resp BP Pulse Ox 09/09/18 08:38 98.1 F 55 L 20 119/62 97 Temperature: Afebrile Blood Pressure: Normal Pulse: Bradycardic Respiratory Rate: Normal Appearance: Positive for: Well-Appearing, Non-Toxic, Comfortable Pain Distress: None Mental Status: Positive for: Alert and Oriented X 3 - Systems Exam Head: Present: Atraumatic, Normocephalic Pupils: Present: PERRL Extroacular Muscles: Present: EOMI Conjunctiva: Present: Normal Mouth: Present: Moist Mucous Membranes Pharnyx: No: ERYTHEMA, EXUDATE, TONSILS ENLARGED Neck: Present: Normal Range of Motion Respiratory/Chest: Present: Clear to Auscultation, Good Air Exchange. No: Respiratory Distress, Accessory Muscle Use Cardiovascular: Present: Regular Rate and Rhythm, Normal S1, S2. No: Murmurs Abdomen: No: Tenderness, Distention, Peritoneal Signs Back: Present: Normal Inspection Upper Extremity: Present: Normal Inspection. No: Cyanosis, Edema Lower Extremity: Present: Normal Inspection. No: Edema Neurological: Present: GCS=15, CN II-XII Intact, Speech Normal, Motor Func Grossly Intact Skin: Present: Warm, Dry, Normal Color. No: Rashes Psychiatric: Present: Alert, Oriented x 3, Normal Insight, Normal Concentration, Normal Affect, Anxious, Depressed Mood. No: Agitated, Suicidal Ideation, Homici kajal Ideation, Delusional, Hallucinations, Intoxicated, Lethargic Medical Decision Making ED Course and Treatment: 09/09/18 09:00 Impression: A 68 year old female presents to the emergency department with a complaint of depression and anxiety. Plan: -- EKG -- Urinalysis -- Labs -- Reassess and disposition Prior Visits: Notes and results from previous visits were reviewed. Patient was seen on 08/08/18 for worsening depression. Patient was hospitalized. Progress Notes: 09/09/18 09:08 EKG shows sinus bradycardia rate approximately [address] or T-wave changes. - Lab Interpretations I have reviewed the lab results: Yes - EKG Interpretation Interpreted by ED Physician: Yes Type: 12 lead EKG - Scribe Statement The provider has reviewed the documentation as recorded by the Dinaibe Jody Coombs Provider Scribe Attestation: All medical record entries made by the Scribe were at my direction and personally dictated by me. I have reviewed the chart and agree that the record accurately reflects my personal performance of the history, physical exam, medical decision making, and the department course for this patient. I have also personally directed, reviewed, and agree with the discharge instructions and disposition. Disposition/Present on Arrival - Present on Arrival Any Indicators Present on Arrival: No History of DVT/PE: No History of Uncontrolled Diabetes: No Urinary Catheter: No History of Decub. Ulcer: No History Surgical Site Infection Following: None - Disposition Have Diagnosis and Disposition been Completed?: Yes Diagnosis: Bipolar disorder Disposition: HOSPITALIZED Disposition Time: 10:50 Patient Plan: Admission Condition: GOOD Forms: My[employer] (Czech)
[2018-09-09 09:17] LABS: BASO # 0.01 K/mm3 (0.0-2.0); BASO % 0.1 % (0.0-3.0); EOS # 0.2 (0.0-0.7); EOS % 1.4 % (1.5-5.0); HEMOGLOBIN 15.3 g/dL (12.0-16.0); LYMPH # 2.5 (1.2-3.4); LYMPH % 24.1 % (22.0-35.0); MEAN CELL VOLUME 90.1 fl (80.0-105.0); MEAN CORPUSCULAR HEMOGLOBIN 31.7 pg (25.0-35.0); MEAN CORPUSCULAR HGB CONC 35.2 g/dl (31.0-37.0); MEAN PLATELET VOLUME 10.5 fl (7.0-11.0); MONO # 0.5 (0.1-0.6); MONO % 4.9 % (1.0-6.0); PH,URINE 6.5 (4.7-8.0); RBC 4.83 10^6/uL (3.5-6.1); RED CELL DISTRIBUTION WIDTH 12.5 % (11.5-14.5); URINE BILIRUBIN NEGATIVE (NEGATIVE); URINE BLOOD NEGATIVE (NEGATIVE); URINE GLUCOSE (UA) NEGATIVE (NEGATIVE); URINE LEUKOCYTE ESTERASE TRACE Leu/uL (NEGATIVE); URINE PROTEIN NEGATIVE mg/dL (<30 mg/dL); URINE UROBILINOGEN 0.2 E.U./dL (<1 E.U./dL); WHITE BLOOD COUNT 10.5 10^3/uL (4.5-11.0)
[2018-09-09 09:18] LABS: URINE APPEARANCE CLEAR (CLEAR); URINE COLOR YELLOW (YELLOW)
[2018-09-09 09:27] LABS: URINE RBC 0 - 2 /hpf (0-2)
[2018-09-09 09:28] LABS: URINE BACTERIA MOD /hpf
[2018-09-09 09:33] LABS: ALB/GLOB RATIO 1.4 (1.1-1.8); ALBUMIN 4.5 g/dL (3.0-4.8); ALT/SGPT 10 U/L (7-56); AST/SGOT 26 U/L (14-36); BLOOD UREA NITROGEN 25 mg/dL (7-21); CALCIUM 9.8 mg/dL (8.4-10.5); GFR NON-AFRICAN AMERICAN > 60
[2018-09-09 09:34] LABS: ACETAMINOPHEN < 10.0 ug/ml (10.0-20.0); SALICYLATE < 1 mg/dL (2.0-20.0)
[2018-09-09 09:44] LABS: BARBITURATES, UR NEGATIVE (NEGATIVE); BENZODIAZEPINES, UR NEGATIVE (NEGATIVE); OPIATES, UR NEGATIVE (NEGATIVE); PHENCYCLIDINE, UR NEGATIVE (NEGATIVE)
[2018-09-09 11:25] VITALS: O2SAT 100
[2018-09-09] MEDS ORDERED: Alum-Mag Hydrox-Simethicone Susp (30 mL) PO PRN (12:25)
[2018-09-09] MEDS ORDERED: Magnesium Hydroxide Susp 30 ml UD PO PRN (12:25)
--- NOTE | 2018-09-09 14:30 | PCM.PSYCH ---
Initial Psychiatric Evaluation - Initial Psychiatric Evaluation Type of Admission: Voluntary Legal Status: Capacity (Patient has a capacity to sign consent for treatment) Chief Complaint (in patient's own words): "I was not sleeping, I was not doing so well, I was feeling hopeless and helpless, I knew that I need to come to the hospital" Patient's Reaction to Hospitalization: Patient was admitted to the psychiatric inpatient unit for evaluation and stabilization of manic symptoms, inability to sleep, episodes of irritability mind racing please see admission notes for more information. History of Present Illness and Precipitating Events: shortly pt is 68 yo female with reported h/o bipolar disorder, JAYLIN, denied h/o suicidal attempts, one previous psychiatric admission about a months ago under care of Dr. Fernandez at [facility], came to the hospital for evaluation and stabilization of depressive symptoms, irritability, inability to function, mind racing and uncontrolled anxiety. Requires further evaluation and stabilization. Patient was seen and examined to the TV area, patient presented with poor personal hygiene, good ADLs, earl/uncombed/curly hair, tearful, anxious, overproductive speech, very hard to interview because patient had difficulties to stay focus and concentrate, pt was ambulating slowly/cautious saying that she has chronic back pain, patient reported that she is taking her medications as prescribed.. Patient reported for past week she was feeling "manicky" patient was not able to fall asleep to stay asleep, patient reported that she has episodes of depression alternating with irritability, feeling of hopelessness, helplessness, worthlessness. Patient is not sure if she hears voices or this is her own thoughts "that I am not good, you worthless, all negative statements." Patient reported that simple task as taking a shower "making me feel very anxious, I was not showering lately", patient reported that she lost her appetite, does not want to eat," not interested in her daily activities. "I was crying constantly". Patient denied suicidal ideation denied intent or plan. Patient reported that she was feeling overwhelmed, not able to do her chores, able to concentrate and stay focused. Patient reported that she feels very anxious, restless, "my mind is racing I cannot stay focused." Patient denied seeing things, denied paranoid ideation, patient does not appear to be psychotic. Patient denies using drugs, denied alcohol consumption, denied smoking. Patient denied history of being abused, denied physical, sexual, emotional abuse. Past psychiatric history: Patient has 1 admission to this facility about a month ago. Patient denied history of suicidal attempts. Medical h/o: diabetes, HTN, diabetic neuropathy. Family history: Patient's grandfather was hospitalized into the [facility], had electroconvulsive therapy, patient is not sure if her father had history of suicidal attempts. TRAVON FREEMAN [address] [phone] Depakote ER 250mg PO QHS Klonopin 0.5 mg 1/2 tab twice a day Prozac 20 mg daily rosuvastatin 40mg po daily metoprolol 25mg po bid ramipril 10mg 2capsules a day chlorthalidone 25mg daily glimepriide 4mg daily januvia 100mg po daily benztropin e0.5mg po bid As per nursing staff patient is calm, cooperative, no behavioral incidents. 09/09/18 09:10 09/09/18 09:10 Lab Results 09/09/18 09:10: Alcohol, Quantitative < 10 09/09/18 09:10: Salicylates < 1 L, Acetaminophen < 10.0 L 09/09/18 09:10: Urine Opiates Screen Negative, Urine Methadone Screen Negative, Ur Barbiturates Screen Negative, Ur Phencyclidine Scrn Negative, Ur Amphetamines Screen Negative, U Benzodiazepines Scrn Negative, U Oth Cocaine Metabols Negative, U Cannabinoids Screen Negative 09/09/18 09:10: Sodium 137, Potassium 3.9, Chloride 97 L, Carbon Dioxide 29, Anion Gap 15, BUN 25 H, Creatinine 0.7, Est GFR ( Amer) > 60, Est GFR (Non-Af Amer) > 60, Random Glucose 104, Calcium 9.8, Magnesium 1.3 L, Total Bilirubin 0.5, AST 26, ALT 10, Alkaline Phosphatase 51, Total Protein 7.6, Al bumin 4.5, Globulin 3.1, Albumin/Globulin Ratio 1.4 09/09/18 09:10: Urine Color Yellow, Urine Appearance Clear, Urine pH 6.5, Ur Specific [place] 1.015, Urine Protein Negative, Urine Glucose (UA) Negative, Urine Ketones Negative, Urine Blood Negative, Urine Nitrate Negative, Urine Bilirubin Negative, Urine Urobilinogen 0.2, Ur Leukocyte Esterase Trace H, Urine RBC 0 - 2, Urine WBC 2 - 5, Ur Epithelial Cells 4 - 5, Urine Bacteria Mod 09/09/18 09:10: WBC 10.5 D, RBC 4.83, Hgb 15.3, Hct 43.5, MCV 90.1, MCH 31.7, MCHC 35.2, RDW 12.5, Plt Count 239, MPV 10.5, Neut % (Auto) 69.5 H, Lymph % (Auto) 24.1, [place] % (Auto) 4.9, Eos % (Auto) 1.4 L, Baso % (Auto) 0.1, Lymph # (Auto) 2.5, [place] # (Auto) 0.5, Eos # (Auto) 0.2, Baso # (Auto) 0.01, Absolute Neuts (auto) 7.26 H Vital Signs Temp Pulse Resp BP Pulse Ox 09/09/18 11:24 70 18 104/60 100 09/09/18 08:38 98.1 F 55 L 20 119/62 97 The patient failed the outpatient lower level of care: Yes Current Medications: Active Medications Generic Name Dose Route Start Last Admin Trade Name Freq PRN Reason Stop Dose Admin Acetaminophen 650 mg 09/09/18 12:24 Tylenol 325mg Tab PO Q6H PRN Pain, Mild (1-3) Al Hydrox/Mg Hydrox/Simethicone 30 ml 09/09/18 12:25 Maalox Plus 30 Ml PO DAILY PRN Indigestion / Heartburn Clonazepam 0.5 mg 09/09/18 16:00 Klonopin PO BID [facility] Protocol Clonazepam 0.25 mg 09/09/18 22:00 Klonopin PO HS [facility] Protocol Divalproex Sodium 250 mg 09/09/18 22:00 Depakote Er(Once Daily) PO [facility] Protocol Fluoxetine HCl 20 mg 09/09/18 12:30 Prozac PO DAILY [facility] Magnesium Hydroxide 30 ml 09/09/18 12:25 Milk Of Magnesia PO DAILY PRN Constipation Present on Admission - Present on Admission Any Indicators Present on Admission: No Review of Systems - Review of Systems Systems not reviewed;Unavailable: Acuity of Condition - Constitutional Constitutional: As Per HPI - EENT Eyes: As Per HPI Ears: As Per HPI Nose/Mouth/Throat: As Per HPI - Breasts Breasts: As Per HPI - Cardiovascular Cardiovascular: As Per HPI - Respiratory Respiratory: As Per HPI - Gastrointestinal Gastrointestinal: As Per HPI - Genitourinary Genitourinary: As Per HPI - Reproductive: Female Reproductive:Female: As Per HPI - Menstruation Menstruation: As Per HPI - Musculoskeletal Musculoskeletal: As Per HPI - Integumentary Integumentary: As Per HPI - Neurological Neurological: As Per HPI - Psychiatric Psychiatric: As Per HPI - Endocrine Endocrine: As Per HPI - Hematologic/Lymphatic Hematologic: As Per HPI Past Patient History - Past Psychiatric History Previous Treatment History: Inpatient Prior Professional Help: See HPI Prior Psychiatric Treatment: See HPI At what hospital: See HPI Duration: See HPI Nature of Treatment: See HPI Explanation of prior treatment: See HPI - PSYCHIATRIC Hx Psychophysiologic Disorder: Yes Hx Bipolar Disorder: Yes Hx Substance Use: No - Infectious Disease Hx of Infectious Diseases: None - CARDIAC Hx Cardiac Disorders: No Hx Hypertension: Yes Hx Pacemaker: No - PULMONARY Hx Respiratory Disorders: No - NEUROLOGICAL HX Cerebrovascular Accident: Yes (1997) Hx Paralysis: No Hx Transient Ischemic Attacks (TIA): Yes (1997) - RENAL Hx Chronic Kidney Disease: No - ENDOCRINE/METABOLIC Hx Endocrine Disorders: No Hx Diabetes Mellitus Type 1: Yes - HEMATOLOGICAL/ONCOLOGICAL Hx Blood Transfusions: No Hx Blood Transfusion Reaction: No - MUSCULOSKELETAL/RHEUMATOLOGICAL Hx Musculoskeletal Disorders: Yes Hx Back Pain: Yes - GENITOURINARY/GYNECOLOGICAL Hx Sexually Transmitted Disorders: No - SURGICAL HISTORY Hx Surgeries: Yes - ANESTHESIA Hx Anesthesia Reactions: No Hx Malignant Hyperthermia: No - Medical/Surgical History Reviewed & confirmed: by [place] Meds Allergies/Adverse Reactions: Allergies Allergy/AdvReac Type Severity Reaction Status Date / Time No Known Allergies Allergy Verified 08/08/18 20:12 Mental Status Examination - Personal Presentation Personal Presentation: Looks older than stated age - Affect Affect: Flat - Motor Activity Motor Activity: Calm - Reliability in Providing Information Reliability in Providing Information: Fair - Speech Speech: Organized - Mood Mood: Depressed (/irritable), Anxious - Formal Thought Process Formal Thought Process: No Impairment - Obsessions/Compulsions Obsessions: None Compulsions: None - Cognitive Functions Orientation: Person, Place, Situation, Time Sensorium: Alert Attention/Concentration: Easily distracted Abstract Thinking: As evidence by literal perception of proverbs Estimate of Intelligence: Average Judgement: Intact, as evidence by: Insight regarding need for hospitalization - Risk Risk: Diminished functioning - Strength & Assets Inventory Strength & Assets Inventory: Intelligence, Family support, Cooperative - Limitations Limitations: Other (severe symptoms which affect functionality) Psychiatric Physical Exam - Physical Exam Reviewed and confirmed: Emergency Department Physical Exam Results - Vital Signs Recent Vital Signs: Last Vital Signs Temp 98.1 F 09/09/18 08:38 Pulse 70 09/09/18 11:24 Resp 18 09/09/18 11:24 BP 104/60 09/09/18 11:24 Pulse Ox 100 09/09/18 11:24 - Labs Result Diagrams: 09/09/18 09:10 09/09/18 09:10 Labs: Laboratory Results - last 24 hr 09/09/18 09/09/18 09/09/18 09:10 09:10 09:10 WBC 10.5 D RBC 4.83 Hgb 15.3 Hct 43.5 MCV 90.1 MCH 31.7 MCHC 35.2 RDW 12.5 Plt Count 239 MPV 10.5 Neut % (Auto) 69.5 H Lymph % (Auto) 24.1 [place] % (Auto) 4.9 Eos % (Auto) 1.4 L Baso % (Auto) 0.1 Lymph # (Auto) 2.5 [place] # (Auto) 0.5 Eos # (Auto) 0.2 Baso # (Auto) 0.01 Absolute Neuts (auto) 7.26 H Sodium 137 Potassium 3.9 Chloride 97 L Carbon Dioxide 29 Anion Gap 15 BUN 25 H Creatinine 0.7 Est GFR ( Amer) > 60 Est GFR (Non-Af Amer) > 60 Random Glucose 104 Calcium 9.8 Magnesium 1.3 L Total Bilirubin 0.5 AST 26 ALT 10 Alkaline Phosphatase 51 Total Protein 7.6 Albumin 4.5 Globulin 3.1 Albumin/Globulin Ratio 1.4 Urine Color Yellow Urine Appearance Clear Urine pH 6.5 Ur Specific [place] 1.015 Urine Protein Negative Urine Glucose (UA) Negative Urine Ketones Negative Urine Blood Negative Urine Nitrate Negative Urine Bilirubin Negative Urine Urobilinogen 0.2 Ur Leukocyte Esterase Trace H Urine RBC 0 - 2 Urine WBC 2 - 5 Ur Epithelial Cells 4 - 5 Urine Bacteria Mod Salicylates Urine Opiates Screen Urine Methadone Screen Acetaminophen Ur Barbiturates Screen Ur Phencyclidine Scrn Ur Amphetamines Screen U Benzodiazepines Scrn U Oth Cocaine Metabols U Cannabinoids Screen Alcohol, Quantitative 02/03/2009/09/18 09/09/18 09:10 09:10 09:10 WBC RBC Hgb Hct MCV MCH MCHC RDW Plt Count MPV Neut % (Auto) Lymph % (Auto) [place] % (Auto) Eos % (Auto) Baso % (Auto) Lymph # (Auto) [place] # (Auto) Eos # (Auto) Baso # (Auto) Absolute Neuts (auto) Sodium Potassium Chloride Carbon Dioxide Anion Gap BUN Creatinine Est GFR ( Amer) Est GFR (Non-Af Amer) Random Glucose Calcium Magnesium Total Bilirubin AST ALT Alkaline Phosphatase Total Protein Albumin Globulin Albumin/Globulin Ratio Urine Color Urine Appearance Urine pH Ur Specific [place] Urine Protein Urine Glucose (UA) Urine Ketones Urine Blood Urine Nitrate Urine Bilirubin Urine Urobilinogen Ur Leukocyte Esterase Urine RBC Urine WBC Ur Epithelial Cells Urine Bacteria Salicylates < 1 L Urine Opiates Screen Negative Urine Methadone Screen Negative Acetaminophen < 10.0 L Ur Barbiturates Screen Negative Ur Phencyclidine Scrn Negative Ur Amphetamines Screen Negative U Benzodiazepines Scrn Negative U Oth Cocaine Metabols Negative U Cannabinoids Screen Negative Alcohol, Quantitative < 10 - EKG Data EKG Interpreted by: ER Physician DSM Plan - DSM 5 DSM 5 Diagnosis: Bipolar disorder as per history - Recommended/Plan of Treatment Treatment Recommendations and Plan of Treatment: Milieu/structure/supportive therapy SW consultation for discharge plan and social issues Med management: Depakote ER 250mg PO QHS, will be continued for mood stabilization will f/u on depakote level Klonopin 0.25mg po bid and hs for anxiety (pt was on bid) Prozac 20 mg daily, will be continued rosuvastatin 40mg po daily, nonformulary, will change to atorvastatin 20mg metoprolol 25mg po bid resumed ramipril 10mg 2capsules a day resumed chlorthalidone 25mg daily, nonformulary, asked pt's family to bring and use it as home medication glimepriide 4mg daily resumed januvia 100mg po daily resumed benztropin will be d/c, pt is not on any antipsychotics Family involvement Follow up on labs Will monitor closely Pt was educated about risk/benefits and alternatives of medications, coping strategies (safety plan, suicide prevention), relapse prevention, importance of follow up with psychiatrist and therapist, stay away from drugs/alcohol/smoking Projected ELOS: 7 days Prognosis: Fair Discharge Plan and Discharge Criteria: Mood will be stable, pt will be more hopeful, will be not psychotic or anxious, will be tolerating medications well, will not have major side effects, will be able to function, will not pose threat to self or others. - Tobacco Cessation Tobacco Use Status for the last 30 days: Non User Tobacco Use Treatment Practical Counseling Provided: No Tobacco Use Treatment FDA-Approved Cessation Medication Provided: No - Alcohol or Substance Abuse Does the patient have an Alcohol or Substance Abuse Disorder: No Initial Psych Certification - Initial Certification I certify that the inpatient psychiatric facility admission was medically necessary for either: Treatment which could reasonbly be expected to improve pt's condition I estimate of hospitalization is necessary for proper treatment of the patient: 7 Unit of Time: Days My plans for post-hospital care for this patient are: Follow-up with Dr. Fernandez Possible therapy sessions
--- NOTE | 2018-09-09 16:45 | PCM.BM ---
<GaryBianca meza - Last Filed: 09/09/18 16:42> Treatment Plan Problems - Problems identified on initial assessmt hopelessness/helplessness Date Initiated: 09/09/18 Time Initiated: 16:43 Assessment reference: NA Status: Active feeling of wortlessness Date Initiated: 09/09/18 Time Initiated: 16:43 Assessment reference: NA Status: Active ineffective coping Date Initiated: 09/09/18 Time Initiated: 16:44 Assessment reference: NA Status: Active altered sleep pattern Date Initiated: 09/09/18 Time Initiated: 16:45 Assessment reference: NA Status: Active self care deficit Date Initiated: 09/09/18 Time Initiated: 16:46 Status: Active Treatment assets and liabiliti Patient Assests: cooperative, insightful, motivated, ADL independent, good support system, cognitively intact, strong nicholas Patient Liabilities: live alone, dietary restrictions, medical problems - Milieu Protocol Maintain good personal hygiene: daily Encourage regular showers, daily Assist patient to perform ADL's, every shift Remind patient to perform daily oral care Conduct patient checks and document Observation sheet: Q15 minutes Maintain personal safety: every shift Educate patient to report safety concerns to staff, every shift Monitor environment for contraband/sharps Medication safety: Monitor for expected outcome, potential side effects: every shift, Assess barriers to learning: every shift, Assess readiness for medication education: every shift Milieu Narrative: Milieu/structure/supportive therapy SW consultation for discharge plan and social issues Med management: Depakote ER 250mg PO QHS, will be continued for mood stabilization will f/u on depakote level Klonopin 0.25mg po bid and hs for anxiety (pt was on bid) Prozac 20 mg daily, will be continued rosuvastatin 40mg po daily, nonformulary, will change to atorvastatin 20mg metoprolol 25mg po bid resumed ramipril 10mg 2capsules a day resumed chlorthalidone 25mg daily, nonformulary, asked pt's family to bring and use it as home medication glimepriide 4mg daily resumed januvia 100mg po daily resumed benztropin will be d/c, pt is not on any antipsychotics Family involvement Follow up on labs Will monitor closely Pt was educated about risk/benefits and alternatives of medications, coping strategies (safety plan, suicide prevention), relapse prevention, importance of follow up with psychiatrist and therapist, stay away from drugs/alcohol/smoking Family Contact Family involvement: Family/SO is involved - Goals for Treatment Patient goals for treatment: i need to sleep better and need my medication adjusted Discharge/Continuing Care - Education Needs Education Needs: Patient Medication, Patient Diagnosis/Disease Process, Patient Coping Skills, Patient Community resources, Patient Personal Hygiene/Grooming - Discharge Discharge Criteria: Tolerates medication w/o severe side effects, Free of Suicidal thoughts, Free of Homicidal thoughts, Normal sleep pattern, Ability to care for self - Treatment Team Participation Patient/Family/SO Statement: Milieu/structure/supportive therapy SW consultation for discharge plan and social issues Med management: Depakote ER 250mg PO QHS, will be continued for mood stabilization will f/u on depakote level Klonopin 0.25mg po bid and hs for anxiety (pt was on bid) Prozac 20 mg daily, will be continued rosuvastatin 40mg po daily, nonformulary, will change to atorvastatin 20mg metoprolol 25mg po bid resumed ramipril 10mg 2capsules a day resumed chlorthalidone 25mg daily, nonformulary, asked pt's family to bring and use it as home medication glimepriide 4mg daily resumed januvia 100mg po daily resumed benztropin will be d/c, pt is not on any antipsychotics Family involvement Follow up on labs Will monitor closely Pt was educated about risk/benefits and alternatives of medications, coping strategies (safety plan, suicide prevention), relapse prevention, importance of follow up with psychiatrist and therapist, stay away from drugs/alcohol/smoking <Agnes Morrison - Last Filed: 09/12/18 14:45> Family Contact Family involvement: Family/SO is involved Family contact: Patient agrees to contact
--- NOTE | 2018-09-09 17:43 | CARD ---
APPROVED REPORT Date of service: 09/09/2018 EKG Measurement Heart [id number] <Conclusion> Sinus bradycardia Otherwise normal ECG
[2018-09-09] MEDS: Divalproex 250 mg ER (ONCE DAILY formulation) PO SCH (21:24)
[2018-09-10 07:38] LABS: GLUCOSE,FASTING 135 mg/dL (65-110); HDL CHOLESTEROL 43 mg/dL (29-60)
[2018-09-10 07:48] LABS: LDL CHOLESTEROL 141 mg/dL (0-129)
[2018-09-10 08:08] LABS: FREE T4 1.25 ng/dL (0.78-2.19)
--- NOTE | 2018-09-10 10:45 | PCM.PYCHPN ---
Psychiatric Progress Note - Psychiatric Progress Note Patient seen today, length of contact: 30 minutes Patient Chief Complaint: "I was feeling very hopeless yesterday, my son came over, from now on my son and my [id number] will be giving my medications to me" Problems Identified/Issues Discussed: Risk/benefits and alternatives of medications discussed, suicide/ homicide prevention, past psychiatric h/o, current psychiatric symptoms, medical problems, risk/benefits and alternatives of medications, medications compliance, coping strategies, substance abuse h/o, relapse prevention, importance of follow up with psychiatrist and therapist, discharge plan. Medical Problems: Hypertension, dyslipidemia, please see emergency room notes for more detailed information, medical team consultation was called. Diagnostic Results: 09/09/18 09:10 09/09/18 09:10 Lab Results 09/10/18 08:18: POC Glucose (mg/dL) 141 H 09/10/18 07:00: Valproic Acid 18 L 09/10/18 07:00: Free T4 1.25, TSH 3rd Generation 3.15 09/10/18 07:00: Fasting Glucose 135 H, Triglycerides 201 H, Cholesterol 249 H, LDL Cholesterol Direct 141 H, HDL Cholesterol 43 09/09/18 21:13: POC Glucose (mg/dL) 239 H 09/09/18 16:19: POC Glucose (mg/dL) 138 H 09/09/18 12:04: POC Glucose (mg/dL) 138 H 09/09/18 09:10: Alcohol, Quantitative < 10 09/09/18 09:10: Salicylates < 1 L, Acetaminophen < 10.0 L 09/09/18 09:10: Urine Opiates Screen Negative, Urine Methadone Screen Negative, Ur Barbiturates Screen Negative, Ur Phencyclidine Scrn Negative, Ur Amphetamines Screen Negative, U Benzodiazepines Scrn Negative, U Oth Cocaine Metabols Negative, U Cannabinoids Screen Negative 09/09/18 09:10: Sodium 137, Potassium 3.9, Chloride 97 L, Carbon Dioxide 29, Anion Gap 15, BUN 25 H, Creatinine 0.7, Est GFR ( Amer) > 60, Est GFR (Non-Af Amer) > 60, Random Glucose 104, Calcium 9.8, Magnesium 1.3 L, Total Bilirubin 0.5, AST 26, ALT 10, Alkaline Phosphatase 51, Total Protein 7.6, Albumin 4.5, Globulin 3.1, Albumin/Globulin Ratio 1.4 09/09/18 09:10: Urine Color Yellow, Urine Appearance Clear, Urine pH 6.5, Ur Specific [place] 1.015, Urine Protein Negative, Urine Glucose (UA) Negative, Urine Ketones Negative, Urine Blood Negative, Urine Nitrate Negative, Urine Bilirubin Negative, Urine Urobilinogen 0.2, Ur Leukocyte Esterase Trace H, Urine RBC 0 - 2, Urine WBC 2 - 5, Ur Epithelial Cells 4 - 5, Urine Bacteria Mod 09/09/18 09:10: WBC 10.5 D, RBC 4.83, Hgb 15.3, Hct 43.5, MCV 90.1, MCH 31.7, MCHC 35.2, RDW 12.5, Plt Count 239, MPV 10.5, Neut % (Auto) 69.5 H, Lymph % (Aut o) 24.1, [place] % (Auto) 4.9, Eos % (Auto) 1.4 L, Baso % (Auto) 0.1, Lymph # (Auto) 2.5, [place] # (Auto) 0.5, Eos # (Auto) 0.2, Baso # (Auto) 0.01, Absolute Neuts (auto) 7.26 H Vital Signs Temp Pulse Pulse Resp BP Pulse Ox 09/10/18 08:48 52 L 125/71 09/09/18 18:04 56 L 119/55 L 09/09/18 16:00 56 L 119/55 L 09/09/18 15:47 49 L 20 09/09/18 11:24 70 18 104/60 100 09/09/18 08:38 98.1 F 55 L 20 119/62 97 DSM 5 Symptoms Update: shortly pt is 68 yo female with reported h/o bipolar disorder, JAYLIN, denied h/o suicidal attempts, one previous psychiatric admission about a months ago under care of Dr. Fernandez at [facility], came to the hospital for evaluation and stabilization of depressive symptoms, irritability, inability to function, mind racing and uncontrolled anxiety. Requires further evaluation and stabilization. Patient was seen and examined today in her room, patient reported that she still feels depressed "I am very depressed, hopeless, right now my son wants to be in charge of all of my medications, I am fine with that, also my [id number] will be very involved", patient reported that her sleep was "not so good but little better", patient reports she still feels very anxious. So far patient tolerates medications well, no side effects observed or reported, aims 0, no EPS. As per staff patient is self isolating, not participating in unit activities, but no agitation, no aggression. Medication Change: Yes (Prozac increased) Medical Record Reviewed: Yes Consults ordered or reviewed: Medical consult requested for dyslipidemia, hypertension Mental Status Examination - Cognitive Function Orientation: Person, Place, Situation, Time Memory: Intact Attention: Poor Concentration: Poor Association: WNL Fund of Knowledge: WNL - Mood Mood: Depressed (/irritable), Anxious - Affect Affect: Flat - Formal Thought Process Formal Thought Process: No Impairment - Suicidal Ideation Suicidal Ideation: No - Homicidal Ideation Homicidal Ideation: No Goal/Treatment Plan - Goal/Treatment Plan Need for Continued Stay: Remain at risks for inpatient hospitalization, Severe depression anxiety, Discharge may exacerbated symptoms, Severe functional impairment Progress Toward Problem(s) and Goals/Treatment Plan: Milieu/structure/supportive therapy SW consultation for discharge plan and social issues Med management: Depakote ER 250mg PO QHS, will be continued for mood stabilization will f/u on depakote level Klonopin 0.25mg po bid and hs for anxiety (pt was on bid) Prozac 30 mg daily, will be continued rosuvastatin 40mg po daily, nonformulary, will change to atorvastatin 20mg metoprolol 25mg po bid resumed ramipril 10mg 2capsules a day resumed chlorthalidone 25mg daily, nonformulary, asked pt's family to bring and use it as home medication glimepriide 4mg daily resumed januvia 100mg po daily resumed benztropin will be d/c, pt is not on any antipsychotics Family involvement Follow up on labs Will monitor closely Pt was educated about risk/benefits and alternatives of medications, coping strategies (safety plan, suicide prevention), relapse prevention, importance of follow up with psychiatrist and therapist, stay away from drugs/alcohol/smoking Estimated Date of D/C: 09/14/18
[2018-09-10] MEDS: Divalproex 250 mg ER (ONCE DAILY formulation) PO SCH (21:30)
--- NOTE | 2018-09-11 11:13 | PN ---
DATE: 09/11/2018 LOCATION: The patient is in the Behavioral Care Unit, room 519, bed 2. SUBJECTIVE: The patient is a 68-year-old female. She is admitted with depression. She has mentioned that she feels very hopeless. She has past history of diabetes, hypertension, hyperlipidemia. The patient is seen this morning. She is sitting in the solarium and the patient is very pleasant and we had conversation. She is very satisfied that her blood sugar is controlled and her hemoglobin A1c was 6.4. PHYSICAL EXAMINATION: VITAL SIGNS: Pulse is 53, blood pressure 121/64, respirations are 20 and O2 sat is 99% on room air. The patient's temperature 97.5. HEENT: The patient's head is normocephalic. NECK: Thyroid is not enlarged. Carotid pulses are present. JVP is flat. No lymphadenopathy in the neck. LUNGS: Trachea is central. Breath sounds are vesicular. No adventitious sounds. HEART: Normal sinus rhythm. S1 and S2 present. No murmurs. ABDOMEN: Soft. Liver and spleen not palpable. CENTRAL NERVOUS SYSTEM: No focal neurological deficit noted. LABORATORY DATA: The patient's lab work done in the hospital shows hemoglobin of 15.5. and the patient's chemistry, the blood sugar is 153 today, but her lipids are slightly abnormal, cholesterol is 249 and LDL is 141. The patient's TSH is 3.15, T4 is 1.25. MEDICATIONS: In the hospital, the patient is on Amaryl 4 mg daily. The patient is on Depakote 250 mg at night. She gets chlorthalidone 25 mg daily, Januvia 100 mg daily, Klonopin 0.25 mg at night, Lipitor 20 mg daily, metoprolol 25 mg b.i.d. The patient is also getting Prozac 30 mg daily and Tylenol for pain and headache. ASSESSMENT AND PLAN: The patient's condition seems to be improved. We will continue medical followup. Kishor Yen MD MTDSiri
--- NOTE | 2018-09-11 11:55 | PCM.PYCHPN ---
Psychiatric Progress Note - Psychiatric Progress Note Patient seen today, length of contact: 30 minutes Patient Chief Complaint: "I was feeling very hopeless yesterday, my son came over, from now on my son and my [id number] will be giving my medications to me" Problems Identified/Issues Discussed: Risk/benefits and alternatives of medications discussed, suicide/ homicide prevention, past psychiatric h/o, current psychiatric symptoms, medical problems, risk/benefits and alternatives of medications, medications compliance, coping strategies, substance abuse h/o, relapse prevention, importance of follow up with psychiatrist and therapist, discharge plan. Medical Problems: Hypertension, dyslipidemia, please see emergency room notes for more detailed information, medical team consultation was called. Diagnostic Results: 09/09/18 09:10 09/09/18 09:10 Lab Results 09/10/18 08:18: POC Glucose (mg/dL) 141 H 09/10/18 07:00: Valproic Acid 18 L 09/10/18 07:00: Free T4 1.25, TSH 3rd Generation 3.15 09/10/18 07:00: Fasting Glucose 135 H, Triglycerides 201 H, Cholesterol 249 H, LDL Cholesterol Direct 141 H, HDL Cholesterol 43 09/09/18 21:13: POC Glucose (mg/dL) 239 H 09/09/18 16:19: POC Glucose (mg/dL) 138 H 09/09/18 12:04: POC Glucose (mg/dL) 138 H 09/09/18 09:10: Alcohol, Quantitative < 10 09/09/18 09:10: Salicylates < 1 L, Acetaminophen < 10.0 L 09/09/18 09:10: Urine Opiates Screen Negative, Urine Methadone Screen Negative, Ur Barbiturates Screen Negative, Ur Phencyclidine Scrn Negative, Ur Amphetamines Screen Negative, U Benzodiazepines Scrn Negative, U Oth Cocaine Metabols Negative, U Cannabinoids Screen Negative 09/09/18 09:10: Sodium 137, Potassium 3.9, Chloride 97 L, Carbon Dioxide 29, Anion Gap 15, BUN 25 H, Creatinine 0.7, Est GFR ( Amer) > 60, Est GFR (Non-Af Amer) > 60, Random Glucose 104, Calcium 9.8, Magnesium 1.3 L, Total Bilirubin 0.5, AST 26, ALT 10, Alkaline Phosphatase 51, Total Protein 7.6, Albumin 4.5, Globulin 3.1, Albumin/Globulin Ratio 1.4 09/09/18 09:10: Urine Color Yellow, Urine Appearance Clear, Urine pH 6.5, Ur Specific [place] 1.015, Urine Protein Negative, Urine Glucose (UA) Negative, Urine Ketones Negative, Urine Blood Negative, Urine Nitrate Negative, Urine Bilirubin Negative, Urine Urobilinogen 0.2, Ur Leukocyte Esterase Trace H, Urine RBC 0 - 2, Urine WBC 2 - 5, Ur Epithelial Cells 4 - 5, Urine Bacteria Mod 09/09/18 09:10: WBC 10.5 D, RBC 4.83, Hgb 15.3, Hct 43.5, MCV 90.1, MCH 31.7, MCHC 35.2, RDW 12.5, Plt Count 239, MPV 10.5, Neut % (Auto) 69.5 H, Lymph % (Aut o) 24.1, [place] % (Auto) 4.9, Eos % (Auto) 1.4 L, Baso % (Auto) 0.1, Lymph # (Auto) 2.5, [place] # (Auto) 0.5, Eos # (Auto) 0.2, Baso # (Auto) 0.01, Absolute Neuts (auto) 7.26 H Vital Signs Temp Pulse Pulse Resp BP Pulse Ox 09/10/18 08:48 52 L 125/71 09/09/18 18:04 56 L 119/55 L 09/09/18 16:00 56 L 119/55 L 09/09/18 15:47 49 L 20 09/09/18 11:24 70 18 104/60 100 09/09/18 08:38 98.1 F 55 L 20 119/62 97 DSM 5 Symptoms Update: shortly pt is 68 yo female with reported h/o bipolar disorder, JAYLIN, denied h/o suicidal attempts, one previous psychiatric admission about a months ago under care of Dr. Fernandez at [facility], came to the hospital for evaluation and stabilization of depressive symptoms, irritability, inability to function, mind racing and uncontrolled anxiety. Requires further evaluation and stabilization. Patient was seen and examined today next to the nursing station, patient reported that she still feels depressed but denied feeling of hopelessness or helplessness, patient is concerned about medications which she is taking right now, patient reported that her family will be giving medications to her, patient was educated about blister packs from the pharmacies, patient seems to be interested. Patient reported that her sleep was "not so good but little better", patient reports she still feels very anxious. So far patient tolerates medications well, no side effects observed or reported, aims 0, no EPS. As per staff patient is self isolating, not participating in unit activities, but no agitation, no aggression. DSM 5 Diagnosis: Bipolar disorder as per history Medication Change: Yes (Prozac increased) Medical Record Reviewed: Yes Consults ordered or reviewed: Medical consult requested for dyslipidemia, hypertension Mental Status Examination - Cognitive Function Orientation: Person, Place, Situation, Time Memory: Intact Attention: Poor (Some improvement) Concentration: Poor (Some improvement) Association: WNL Fund of Knowledge: WNL - Mood Mood: Depressed ("I feel little better"), Anxious - Affect Affect: Constricted (But today was more reactive) - Speech Speech: Appropriate - Formal Thought Process Formal Thought Process: No Impairment - Suicidal Ideation Suicidal Ideation: No - Homicidal Ideation Homicidal Ideation: No Goal/Treatment Plan - Goal/Treatment Plan Need for Continued Stay: Remain at risks for inpatient hospitalization, Severe depression anxiety, Discharge may exacerbated symptoms, Severe functional impairment Progress Toward Problem(s) and Goals/Treatment Plan: Milieu/structure/supportive therapy SW consultation for discharge plan and social issues Med management: Depakote ER 250mg PO QHS, will be continued for mood stabilization will f/u on depakote level Klonopin 0.25mg po bid and hs for anxiety (pt was on bid) Prozac 30 mg daily, will be continued rosuvastatin 40mg po daily, nonformulary, will change to atorvastatin 20mg metoprolol 25mg po bid resumed ramipril 10mg 2capsules a day resumed chlorthalidone 25mg daily, nonformulary, asked pt's family to bring and use it as home medication glimepriide 4mg daily resumed januvia 100mg po daily resumed benztropin will be d/c, pt is not on any antipsychotics Family involvement Follow up on labs Will monitor closely Pt was educated about risk/benefits and alternatives of medications, coping strategies (safety plan, suicide prevention), relapse prevention, importance of follow up with psychiatrist and therapist, stay away from drugs/alcohol/smoking Estimated Date of D/C: 09/14/18
[2018-09-11] MEDS: Divalproex 250 mg ER (ONCE DAILY formulation) PO SCH (21:13)
--- NOTE | 2018-09-12 11:43 | PN ---
DATE: 09/12/2018 SUBJECTIVE: Seen on this morning. She is ambulating and she says she feels better. The patient had no new complaints. PHYSICAL EXAMINATION: VITAL SIGNS: This morning, her pulse is 60 per minute, blood pressure 140/80, respirations are 20, O2 saturation is 99% on room air. HEENT: The patient's head is normocephalic. NECK: Negative for any swelling. JVP is flat. Carotid pulse are present. LUNGS: Trachea is central. Breath sounds are vesicular. No adventitious sounds. HEART: Normal sinus rhythm. S1 and S2 present. No murmurs. ABDOMEN: Soft. Liver and spleen not palpable. CENTRAL NERVOUS SYSTEM: The patient has no focal deficit. MEDICATIONS: The patient's medications reviewed. The patient is on Amaryl, Depakote, chlorthalidone, Januvia, Klonopin, Lipitor, metoprolol. The patient is on Prozac and Tylenol. Her blood work is stable . Her condition is improving. We will followup medically. The patient's blood sugar was relatively controlled. Kishor Yen MD
--- NOTE | 2018-09-12 14:31 | PCM.PYCHPN ---
Psychiatric Progress Note - Psychiatric Progress Note Patient seen today, length of contact: 30 minutes Patient Chief Complaint: "I feel little better" Problems Identified/Issues Discussed: Risk/benefits and alternatives of medications discussed, suicide/ homicide prevention, past psychiatric h/o, current psychiatric symptoms, medical problems, risk/benefits and alternatives of medications, medications compliance, coping strategies, substance abuse h/o, relapse prevention, importance of follow up with psychiatrist and therapist, discharge plan. Medical Problems: Hypertension, dyslipidemia, please see emergency room notes for more detailed information, medical team consultation was called. Diagnostic Results: 09/09/18 09:10 09/09/18 09:10 Lab Results 09/10/18 08:18: POC Glucose (mg/dL) 141 H 09/10/18 07:00: Valproic Acid 18 L 09/10/18 07:00: Free T4 1.25, TSH 3rd Generation 3.15 09/10/18 07:00: Fasting Glucose 135 H, Triglycerides 201 H, Cholesterol 249 H, LDL Cholesterol Direct 141 H, HDL Cholesterol 43 09/09/18 21:13: POC Glucose (mg/dL) 239 H 09/09/18 16:19: POC Glucose (mg/dL) 138 H 09/09/18 12:04: POC Glucose (mg/dL) 138 H 09/09/18 09:10: Alcohol, Quantitative < 10 09/09/18 09:10: Salicylates < 1 L, Acetaminophen < 10.0 L 09/09/18 09:10: Urine Opiates Screen Negative, Urine Methadone Screen Negative, Ur Barbiturates Screen Negative, Ur Phencyclidine Scrn Negative, Ur Amphetamines Screen Negative, U Benzodiazepines Scrn Negative, U Oth Cocaine Metabols Negative, U Cannabinoids Screen Negative 09/09/18 09:10: Sodium 137, Potassium 3.9, Chloride 97 L, Carbon Dioxide 29, Anion Gap 15, BUN 25 H, Creatinine 0.7, Est GFR ( Amer) > 60, Est GFR (Non-Af Amer) > 60, Random Glucose 104, Calcium 9.8, Magnesium 1.3 L, Total Bilirubin 0.5, AST 26, ALT 10, Alkaline Phosphatase 51, Total Protein 7.6, Albumin 4.5, Globulin 3.1, Albumin/Globulin Ratio 1.4 09/09/18 09:10: Urine Color Yellow, Urine Appearance Clear, Urine pH 6.5, Ur Specific [place] 1.015, Urine Protein Negative, Urine Glucose (UA) Negative, Urine Ketones Negative, Urine Blood Negative, Urine Nitrate Negative, Urine [place] irubin Negative, Urine Urobilinogen 0.2, Ur Leukocyte Esterase Trace H, Urine RBC 0 - 2, Urine WBC 2 - 5, Ur Epithelial Cells 4 - 5, Urine Bacteria Mod 09/09/18 09:10: WBC 10.5 D, RBC 4.83, Hgb 15.3, Hct 43.5, MCV 90.1, MCH 31.7, MCHC 35.2, RDW 12.5, Plt Count 239, MPV 10.5, Neut % (Auto) 69.5 H, Lymph % (Auto) 24.1, [place] % (Auto) 4.9, Eos % (Auto) 1.4 L, Baso % (Auto) 0.1, Lymph # (Auto) 2.5, [place] # (Auto) 0.5, Eos # (Auto) 0.2, Baso # (Auto) 0.01, Absolute Neuts (auto) 7.26 H Vital Signs Temp Pulse Pulse Resp BP Pulse Ox 09/10/18 08:48 52 L 125/71 09/09/18 18:04 56 L 119/55 L 09/09/18 16:00 56 L 119/55 L 09/09/18 15:47 49 L 20 09/09/18 11:24 70 18 104/60 100 09/09/18 08:38 98.1 F 55 L 20 119/62 97 DSM 5 Symptoms Update: shortly pt is 68 yo female with reported h/o bipolar disorder, JAYLIN, denied h/o suicidal attempts, one previous psychiatric admission about a months ago under care of Dr. Fernandez at [facility], came to the hospital for evaluation and stabilization of depressive symptoms, irritability, inability to function, mind racing and uncontrolled anxiety. Requires further evaluation and stabilization. Patient was seen and examined today at the treatment team meeting room, patient reported that she still feels depressed but denied feeling of hopelessness or helplessness, patient is concerned about medications which she is taking right now, patient reported that her family will be giving medications to her, patient was educated about blister packs from the pharmacies, patient seems to be interested. Patient reported that her sleep "little better", patient reports that anxiety is improving. So far patient tolerates medications well, no side effects observed or reported, aims 0, no EPS. As per staff patient started to attend groups, no agitation, no aggression. DSM 5 Diagnosis: Bipolar disorder as per history Medication Change: Yes (Prozac increased September 11, 2018) Medical Record Reviewed: Yes Consults ordered or reviewed: Medical consult requested for dyslipidemia, hypertension Mental Status Examination - Cognitive Function Orientation: Person, Place, Situation, Time Memory: Intact Attention: Poor (Some improvement) Concentration: Poor (Some improvement) Association: WNL Fund of Knowledge: WNL - Mood Mood: Depressed ("I feel little better"), Anxious - Affect Affect: Constricted (But today was more reactive) - Speech Speech: Appropriate - Formal Thought Process Formal Thought Process: No Impairment - Suicidal Ideation Suicidal Ideation: No - Homicidal Ideation Homicidal Ideation: No Goal/Treatment Plan - Goal/Treatment Plan Need for Continued Stay: Remain at risks for inpatient hospitalization, Severe depression anxiety, Discharge may exacerbated symptoms, Severe functional impairment Progress Toward Problem(s) and Goals/Treatment Plan: Milieu/structure/supportive therapy SW consultation for discharge plan and social issues Med management: Depakote ER 250mg PO QHS, will be continued for mood stabilization will f/u on depakote level Klonopin 0.25mg po bid and hs for anxiety (pt was on bid) Prozac 30 mg daily, will be continued rosuvastatin 40mg po daily, nonformulary, will change to atorvastatin 20mg metoprolol 25mg po bid resumed ramipril 10mg 2capsules a day resumed chlorthalidone 25mg daily, nonformulary, asked pt's family to bring and use it as home medication glimepriide 4mg daily resumed januvia 100mg po daily resumed benztropin will be d/c, pt is not on any antipsychotics Family involvement Follow up on labs Will monitor closely Pt was educated about risk/benefits and alternatives of medications, coping strategies (safety plan, suicide prevention), relapse prevention, importance of follow up with psychiatrist and therapist, stay away from drugs/alcohol/smoking Estimated Date of D/C: 09/13/18
[2018-09-12] MEDS: Divalproex 250 mg ER (ONCE DAILY formulation) PO SCH (21:18)
[2018-09-13 07:10] VITALS: BP 120/59; PULSE 50; RESP 19; TEMP 97.4
--- NOTE | 2018-09-13 12:21 | PN ---
DATE: 09/13/2018 SUBJECTIVE: The patient is 68-year-old female. She is in the Behavioral Care Unit room 590, bed 2. She is scheduled to be discharge today by the Behavioral Care physician. The patient has medical history, the patient has diabetes. The patient also has history of hypertension. PHYSICAL EXAMINATION: GENERAL: The patient is seen this morning. She is comfortable. She seem to be very pleasant. VITAL SIGNS: Pulse is 50, blood pressure 120/59 and respirations are 19. HEENT: Head is normocephalic. NECK: Thyroid is not enlarged. JVP is flat. LUNGS: Clear. HEART: Normal sinus rhythm. S1 and S2, present. ABDOMEN: Soft. Liver and spleen not palpable. CENTRAL NERVOUS SYSTEM: No focal deficit. MEDICATIONS: The patient's medications, the patient is on Amaryl 4 mg daily. The patient is on Depakote 250 mg at night, chlorthalidone 25 mg daily, Januvia 100 mg daily and Klonopin 0.25 mg at night. The patient is on Lipitor 20 mg daily and metoprolol 25 mg twice a day. The patient is on Prozac 30 mg daily, Tylenol 325 for pain. LABORATORY DATA: The patient lab work remains the same. The patient is clinically stable. We will review the medicine and the patient can be discharge. She has medicines for diabetes, blood pressure etc. We will followup. Kishor Yen MD
--- NOTE | 2018-09-13 13:48 | PCM.PYCHDC ---
Mental Status Examination - Mental Status Examination Orientation: Person, Place, Situation, Time Memory: Intact Mood: Neutral Affect: Broad (And mood congruent) Speech: Appropriate Attention: WNL Concentration: WNL Association: WNL Fund of Knowledge: WNL Formal Thought Process: No Impairment Description of patient's judgement and insight: Pt has improved insight into mental and medical illness, pt was compliant with medications and unit rules and regulations, pt was attending therapy groups, was calm, cooperative, socially appropriate, no behavioral incidents, no agitation, no aggression. Psychotic Thoughts and Behaviors: Pt denied v/a/t hallucinations, denied paranoid ideations, pt does not appear to be psychotic, and thought process is goal directed. pt adamantly denied thoughts of harming self or others denied intent or plan. Suicidal Ideation: No Current Homicidal Ideation?: No Plan: pt adamantly denied thoughts of harming self or others denied intent or plan. Discharge Summary - Discharge Note Reason for Hospitalization: Patient was admitted to the psychiatric inpatient unit for evaluation and stabilization of manic symptoms, inability to sleep, episodes of irritability mind racing please see admission notes for more information. Psychiatric History (includes Medical, Family, Personal Hx): See HPI Laboratory Data: Abnormal Lab Results 09/12/18 09/12/18 09/12/18 11:29 16:16 21:09 POC Glucose (mg/dL) 151 H 156 H 174 H 09/13/18 07:18 POC Glucose (mg/dL) 129 H Consultations:: List each consultation separately and include: 1. Reason for request. 2. Findings. 3. Follow-up Consultations: Medical consult requested for dyslipidemia, hypertension Summary of Hospital Course include:: 1. Description of specific treatment plan utilized for patients during their course of treatmen. 2. Summarize the time- course for resolution of acute symptoms and/or regressed behaviors. 3. Describe issues identified and worked on during hospitalization. 4. Describe medication utilized. 5. Describe medical problems identified and treated. 6. Reassessment of suicide risk Summary of Hospital Course: shortly pt is 68 yo female with reported h/o bipolar disorder, JAYLIN, denied h/o suicidal attempts, one previous psychiatric admission about a months ago under care of Dr. Fernandez at [facility], came to the hospital for evaluation and stabilization of depressive symptoms, irritability, inability to function, mind racing and uncontrolled anxiety. Patient required further evaluation and stabilization. Please see admission note for more detailed information. Medication list was confirmed by patient's pharmacy [facility] [place] [phone] Depakote ER 250mg PO QHS Klonopin 0.5 mg 1/2 tab twice a day Prozac 20 mg daily rosuvastatin 40mg po daily metoprolol 25mg po bid ramipril 10mg 2capsules a day chlorthalidone 25mg daily glimepriide 4mg daily januvia 100mg po daily benztropin e0.5mg po bid Depakote was continued, Klonopin was increased to 3 times a day for mood stabilization, Prozac was increased to 30 mg daily for depression and anxiety. Patient tolerated medications well, no side effects observed or reported, aims 0, no EPS. Overall patient improved significantly, mood improved, anxiety improved, sleep proved. Over the course of this hospitalization pt was attending groups, pt also had medication management, had therapeutic milieu. Overall pt improved significantly, pt's affect became brighter, pt was less depressed, has realistic future oriented plans, pt also does not appear to be psychotic, or anxious, pt was socially appropriate, no behavioral issues, pts insight improved as well and soon pt deemed to be ready for discharge. At the time of the discharge patient pose no imminent danger to self or others, will be following up with Dr. Fernandez at [facility] here in [facility], information about follow up appointment, time and address provided to the pt, (see SW note for more detailed information). It is a patient responsibility to follow up with outpatient clinic, PMD as well as specialists In case patient will need to obtain results of studies pending at discharge, patient was provided with contact information of Psychiatric Inpatient unit [phone] as well as Medical Record Department [phone], as well as [facility] team [phone]. Patient denies using drugs, denied drinking alcohol, denied alcohol consumption, denies smoking pt was provided with prescriptions (see medication reconciliation form) Pt was educated about safety plan in case of worsening of symptoms or in case of suicidal or homicidal ideation call 911 or go to the nearest ER, also was educated to take meds as prescribed and stay away from drugs, pt verbalized understanding. 09/09/18 09:10 09/09/18 09:10 Lab Results 09/09/18 09:10: Alcohol, Quantitative < 10 09/09/18 09:10: Salicylates < 1 L, Acetaminophen < 10.0 L 09/09/18 09:10: Urine Opiates Screen Negative, Urine Methadone Screen Negative, Ur Barbiturates Screen Negative, Ur Phencyclidine Scrn Negative, Ur Amphetamines Screen Negative, U Benzodiazepines Scrn Negative, U Oth Cocaine Metabols Negative, U Cannabinoids Screen Negative 09/09/18 09:10: Sodium 137, Potassium 3.9, Chloride 97 L, Carbon Dioxide 29, Anion Gap 15, BUN 25 H, Creatinine 0.7, Est GFR ( Amer) > 60, Est GFR (Non-Af Amer) > 60, Random Glucose 104, Calcium 9.8, Magnesium 1.3 L, Total Bilirubin 0.5, AST 26, ALT 10, Alkaline Phosphatase 51, Total Protein 7.6, Albumin 4.5, Globulin 3.1, Albumin/Globulin Ratio 1.4 09/09/18 09:10: Urine Color Yellow, Urine Appearance Clear, Urine pH 6.5, Ur Specific [place] 1.015, Urine Protein Negative, Urine Glucose (UA) Negative, Urine Ketones Negative, Urine Blood Negative, Urine Nitrate Negative, Urine Bilirubin Negative, Urine Urobilinogen 0.2, Ur Leukocyte Esterase Trace H, Urine RBC 0 - 2, Urine WBC 2 - 5, Ur Epithelial Cells 4 - 5, Urine Bacteria Mod 09/09/18 09:10: WBC 10.5 D, RBC 4.83, Hgb 15.3, Hct 43.5, MCV 90.1, MCH 31.7, MCHC 35.2, RDW 12.5, Plt Count 239, MPV 10.5, Neut % (Auto) 69.5 H, Lymph % (Auto) 24.1, [place] % (Auto) 4.9, Eos % (Auto) 1.4 L, Baso % (Auto) 0.1, Lymph # (Auto) 2.5, [place] # (Auto) 0.5, Eos # (Auto) 0.2, Baso # (Auto) 0.01, Absolute Neuts (auto) 7.26 H Vital Signs Temp Pulse Resp BP Pulse Ox 09/09/18 11:24 70 18 104/60 100 09/09/18 08:38 98.1 F 55 L 20 119/62 97 - Diagnosis (1) Bipolar disorder Status: Chronic Priority: High (2) JAYLIN (generalized anxiety disorder) Status: Chronic Priority: High - Final Diagnosis (DSM 5) Condition upon Discharge: GOOD Disposition: HOME/ ROUTINE Follow-up Treatment Plan: At the time of the discharge patient pose no imminent danger to self or others, will be following up with Dr. Fernandez at [facility] here in [facility], information about follow up appointment, time and address provided to the pt, (see SW note for more detailed information). It is a patient responsibility to follow up with outpatient clinic, PMD as well as specialists In case patient will need to obtain results of studies pending at discharge, patient was provided with contact information of Psychiatric Inpatient unit [phone] as well as Medical Record Department [phone], as well as [facility] team [phone]. Patient denies using drugs, denied drinking alcohol, denied alcohol consumption, denies smoking pt was provided with prescriptions (see medication reconciliation form) Pt was educated about safety plan in case of worsening of symptoms or in case of suicidal or homicidal ideation call 911 or go to the nearest ER, also was educated to take meds as prescribed and stay away from drugs, pt verbalized understanding. Prescriptions/Medication Reconciliation: Atorvastatin [Lipitor] 20 mg PO DIN #14 tab Chlorthalidone [Hygroton] 25 mg PO DAILY #14 tab clonazePAM HALF TAB [Klonopin- HALF TAB] 0.25 mg PO TID #45 tab Divalproex [Depakote ER(ONCE DAILY)] 250 mg PO HS #14 ter FLUoxetine [Prozac] 10 mg PO DAILY #14 cap FLUoxetine [Fluoxetine HCl] 20 mg PO DAILY #14 cap Glimepiride [amaRYL] 4 mg PO DAILY #14 tab Metoprolol Tartrate [Lopressor] 25 mg PO BID #30 tab SITagliptin [Januvia] 100 mg PO DAILY #14 tab - Smoking Cessation Smoking Cessation Medication prescribed: No - Antipsychotic Medications Pt discharged on 2 or more routine antipsychotic medications: No
== END 2018-09-13 11:46 | disposition home or self-care (01) | DRG 885 ==
LOC: ED 08:37 → ERH 10:48 → PSYC 11:36
PROVIDERS: ADMIT Psychiatry & Neurology Psychiatry; ATTEND Psychiatry & Neurology Psychiatry
DX: F31.9 Bipolar disorder, unspecified (principal); E10.40 Type 1 diabetes mellitus with diabetic neuropathy, unspecified; E78.5 Hyperlipidemia, unspecified; F41.1 Generalized anxiety disorder; G47.00 Insomnia, unspecified; G89.29 Other chronic pain; I10 Essential (primary) hypertension; Z79.82 Long term (current) use of aspirin; Z79.899 Other long term (current) drug therapy; Z86.73 Personal history of transient ischemic attack (TIA), and cerebral infarction without residual deficits

== ENCOUNTER 2018-09-30 13:43 | Emergency (ER) | payer MEDICARE, OTHER ==
[2018-09-30 13:44] VITALS: BMI 37.3
[2018-09-30 13:55] VITALS: BP 117/77; PULSE 55; RESP 18; TEMP 97.8; O2SAT 96
--- NOTE | 2018-09-30 14:37 | ED PDOC ---
Arrival/HPI - General Chief Complaint: Trauma Time Seen by Provider: 09/30/18 13:53 Historian: Patient - History of Present Illness Narrative History of Present Illness (Text): 09/30/18 14:33 A 68 year old female, whose past medical history includes bipolar disorder, diabetes, hypertension, and hyperlipidemia, presents to the emergency department for further evaluation of neck and back pain s/p fall [address] ates that she fell down some stairs and hit her head. Patient reports pain to her neck and lower back for which she has been taking Tylenol. She denies fevers, chills, headache, dizziness, chest pain, shortness of breath, dyspnea on exertion, cough, abdominal pain, nausea, vomiting, diarrhea, urinary/bowel changes, or any other complaint. PMD: Dr. Hughes Time/Duration: Other (5 days) Symptom Onset: Sudden Activities at Onset: Rest, Light Context: Standing, Tripped Past Medical History - Provider Review Nursing Documentation Reviewed: Yes - Infectious Disease Hx of Infectious Diseases: None - Reproductive Menopause: Yes - Cardiac Hx Cardiac Disorders: No Hx Hypertension: Yes Hx Pacemaker: No - Pulmonary Hx Respiratory Disorders: No - Neurological HX Cerebrovascular Accident: Yes (1997) Hx Paralysis: No Hx Transient Ischemic Attacks (TIA): Yes (1997) - HEENT Hx HEENT Disorder: No - Renal Hx Renal Disorder: No - Endocrine/Metabolic Hx Endocrine Disorders: No Hx Diabetes Mellitus Type 1: Yes - Hematological/Oncological Hx Blood Transfusions: No Hx Blood Transfusion Reaction: No - Integumentary Hx Dermatological Disorder: No - Musculoskeletal/Rheumatological Hx Musculoskeletal Disorders: Yes Hx Back Pain: Yes - Gastrointestinal Hx Gastrointestinal Disorders: No - Genitourinary/Gynecological Hx Genitourinary Disorders: No Hx Sexually Transmitted Diseases: No - Psychiatric Hx Bipolar Disorder: Yes Hx Depression: Yes Hx Substance Use: No - Anesthesia Hx Anesthesia Reactions: No Hx Malignant Hyperthermia: No - Suicidal Assessment Feels Threatened In Home Enviroment: No Family/Social History - Physician Review Nursing Documentation Reviewed: Yes Family/Social History: No Known Family HX Smoking Status: Former Smoker Hx Alcohol Use: No Hx Substance Use: No Allergies/Home Meds Allergies/Adverse Reactions: Allergies No Known Allergies Allergy (Verified 09/09/18 17:07) Review of Systems - Physician Review All systems were reviewed & negative as marked: Yes - Review of Systems Constitutional: absent: Fevers Respiratory: absent: SOB, Cough Cardiovascular: absent: Chest Pain, BHATIA Gastrointestinal: absent: Abdominal Pain, Stool Changes, Diarrhea, Nausea, Vomiting Musculoskeletal: Back Pain, Neck Pain Neurological: absent: Headache, Dizziness Physical Exam Vital Signs Reviewed: Yes Vital Signs Temp Pulse Resp BP Pulse Ox 09/30/18 13:49 97.8 F 55 L 18 117/77 96 Temperature: Afebrile Blood Pressure: Normal Pulse: Bradycardic Respiratory Rate: Normal Appearance: Positive for: Well-Appearing, Non-Toxic, Comfortable Pain Distress: None Mental Status: Positive for: Alert and Oriented X 3 - Systems Exam Head: Present: Normocephalic, Other (No hematoma/ injury to head. ) Pupils: Present: PERRL Extroacular Muscles: Present: EOMI Conjunctiva: Present: Normal Mouth: Present: Moist Mucous Membranes Neck: Present: Normal Range of Motion. No: MIDLINE TENDERNESS Respiratory/Chest: Present: Clear to Auscultation, Good Air Exchange. No: Respiratory Distress, Accessory Muscle Use Cardiovascular: Present: Regular Rate and Rhythm, Normal S1, S2. No: Murmurs Abdomen: No: Tenderness, Distention, Peritoneal Signs Back: Present: Other (Diffuse back tenderness. ). No: Midline Tenderness Upper Extremity: Present: Normal Inspection, Normal ROM. No: Cyanosis, Edema Lower Extremity: Present: Normal Inspection, Normal ROM. No: Edema Neurological: Present: GCS=15, CN II-XII Intact, Speech Normal Skin: Present: Warm, Dry, Normal Color, Abrasion (Abrasion to left knee. No open wounds. ), Other (Ecchymosis to right chest. Mild tenderness. ). No: Rashes Psychiatric: Present: Alert, Oriented x 3, Normal Insight, Normal Concentration Medical Decision Making ED Course and Treatment: 09/30/18 14:37 Impression: A 68 year old female presents to the emergency department with a complaint of neck and back pain s/p fall down stairs 5 days ago. Differential Diagnosis included but are not limited to: fall back pain r/o fracture Plan: -- Chest X-ray -- LS Spine X-Ray -- Cervical Spine X-Ray -- Dorsal (Thoracic) Spine X-Ray -- Toradol -- Reassess and disposition Prior Visits: Notes and results from previous visits were reviewed. Progress Notes: 09/30/18 16:32 XRays negative. CXR with no fracture or ptx. Patient feels better and will f/u with her PMD. Dr. Hughes. She was advised to return to the ED if symptoms worsen or any other concern. - Scribe Statement Jody Coombs Provider Scribe Attestation: All medical record entries made by the Scribe were at my direction and personally dictated by me. I have reviewed the chart and agree that the record accurately reflects my personal performance of the history, physical exam, medical decision making, and the department course for this patient. I have also personally directed, reviewed, and agree with the discharge instructions and disposition. Disposition/Present on Arrival - Present on Arrival Any Indicators Present on Arrival: No History of DVT/PE: No History of Uncontrolled Diabetes: No Urinary Catheter: No History of Decub. Ulcer: No History Surgical Site Infection Following: None - Disposition Have Diagnosis and Disposition been Completed?: Yes Diagnosis: Back pain, Fall, Chest wall contusion Disposition: HOME/ ROUTINE Disposition Time: 16:32 Patient Problems: Current Active Problems Problem Status Onset Back pain Acute Chest wall contusion Acute Fall Acute Condition: IMPROVED Discharge Instructions (ExitCare): Upper Back Pain (DC) Additional Instructions: AMINA NOLAN, thank you for letting us take care of you today. Your provider was Jr Matthews DO and you were treated for Fall with Contusion and Strain. The emergency medical care you received today was directed at your acute symptoms. If you were prescribed any medication, please fill it and take as directed. It may take several days for your symptoms to resolve. Return to the Emergency Department if your symptoms worsen, do not improve, or if you have any other problems. Please contact your doctor or call one of the physicians/clinics you have been referred to that are listed on the Patient Visit Information form that is included in your discharge packet. Bring any paperwork you were given at discharge with you along with any medications you are taking to your follow up visit. Our treatment cannot replace ongoing medical care by a primary care provider outside of the emergency department. Thank you for allowing the [facility] team to be part of your care today. If you had an X-Ray or CT scan: A Radiologist will review the ED reading if any change in treatment is needed we will contact you. If you had a blood, urine, or wound culture: It will take several days for the results, if any change in treatment is needed we will contact you. If you had an STI test: It will take 48 hours for the results. Please call after 1 week if you have not heard back. Prescriptions: Ibuprofen [Motrin] 600 mg PO Q6 PRN #30 tab PRN Reason: Pain, Moderate (4-7) Referrals: Francie Hughes MD [Primary Care Provider] - Follow up with primary Forms: [employer] (Fijian)
--- NOTE | 2018-09-30 17:00 | RAD ---
HISTORY: fall r/o fx COMPARISON: None available. TECHNIQUE: Chest PA and lateral FINDINGS: Examination limited by habitus. LUNGS: No focal consolidation. Please note that chest x-ray has limited sensitivity for the detection of pulmonary masses. PLEURA: No significant pleural effusion identified. No definite pneumothorax . CARDIOVASCULAR: Heart size appears within normal limits. No atherosclerotic calcification present. OSSEOUS STRUCTURES: Degenerative changes. Osseous demineralization. Mild kyphosis. Acromioclavicular arthropathy. VISUALIZED UPPER ABDOMEN: Unremarkable. OTHER FINDINGS: None. IMPRESSION: No focal consolidation.
--- NOTE | 2018-09-30 17:04 | RAD ---
Date of service: 09/30/2018 PROCEDURE: Radiographs of the Lumbar Spine. HISTORY: pain s/p fall r/o fx COMPARISON: None. FINDINGS: BONES: Alignment appears satisfactory. No listhesis. Degenerative changes of the spine. Multilevel osteophyte formation. No acute displaced fracture identified. DISC SPACES: Intervertebral disc space narrowing. OTHER FINDINGS: None. IMPRESSION: Multilevel degenerative changes and intervertebral disc space narrowing.
--- NOTE | 2018-09-30 17:05 | RAD ---
Date of service: 09/30/2018 HISTORY: pain s/p fall COMPARISON: None. FINDINGS: Alignment maintained. No acute displaced fracture. Osseous demineralization. Multilevel degenerative changes including osteophyte formation and intervertebral disc space narrowing. IMPRESSION: Osseous demineralization. Degenerative changes.
--- NOTE | 2018-09-30 17:09 | RAD ---
Date of service: 09/30/2018 PROCEDURE: Cervical Spine Radiographs. HISTORY: Pain. COMPARISON: None available. FINDINGS: Cervical spine is not well visualized beyond C6 on lateral view. Straightening of the normal cervical lordosis may be related to muscle spasm or positioning. Dens tip not well visualized.No acute displaced fracture identified. No prevertebral soft tissue swelling. IMPRESSION: Cervical spine is not well visualized beyond C6 on lateral view. Straightening of the normal cervical lordosis may be related to muscle spasm or positioning. Dens tip not well visualized. No acute displaced fracture identified. No prevertebral soft tissue swelling. Recommend further evaluation with cross-sectional imaging if indicated.
== END 2018-09-30 16:39 | disposition home or self-care (01) ==
LOC: ED 13:43
DX: S20.211A Contusion of right front wall of thorax, initial encounter (principal); W10.9XXA Fall (on) (from) unspecified stairs and steps, initial encounter; M54.6 Pain in thoracic spine
CPT/HCPCS: 71046; 72050; 72070; 72110; 96372; 99284; J1885

== ENCOUNTER 2018-10-03 19:02 | Emergency (ER) | payer MEDICARE, OTHER ==
[2018-10-03 19:02] VITALS: BMI 37.3
[2018-10-03 19:14] VITALS: RESP 18
[2018-10-03] MEDS ORDERED: Sodium Chloride 0.9% 1,000 ML IV STA (19:45)
[2018-10-03] MEDS ORDERED: Atrop/Hyosc/Scopal/PB Elixir (120 ml) PO STA (19:45)
[2018-10-03] MEDS ORDERED: Alum-Mag Hydrox-Simethicone Susp (30 mL) PO STA (19:45)
--- NOTE | 2018-10-03 20:05 | ED PDOC ---
Arrival/HPI - General Chief Complaint: Abdominal Pain Time Seen by Provider: 10/03/18 19:20 Historian: Patient - History of Present Illness Narrative History of Present Illness (Text): 10/03/18 19:47 68 year old F w/ h/o generalized anxiety disorder presenting to the Emergency Room with epigastric pain ongoing for the past 48 hours. The patient states she noted the onset of pain after she started a prescription of WellButrin p rescribed by her psychiatrist, Dr. Fernandez on 09/30/18. The patient states she has been having this abdominal pain continuously with intermittent episodes of nausea and retching. Patient also informs of some associated dizziness. Patient denies any chest pain, shortness of breath, fever, or chills. Patient denies any other medications. Of note, patient was seen here on Wednesday, for fall and denies any dizziness as a result of the fall. Time/Duration: < week (2 days) Symptom Onset: Gradual Symptom Course: Unchanged Quality: Gas Like Activities at Onset: Light Past Medical History - Provider Review Nursing Documentation Reviewed: Yes - Infectious Disease Hx of Infectious Diseases: None - Cardiac Hx Cardiac Disorders: No Hx Hypertension: Yes Hx Pacemaker: No - Pulmonary Hx Respiratory Disorders: No - Neurological HX Cerebrovascular Accident: Yes (1997) Hx Paralysis: No Hx Transient Ischemic Attacks (TIA): Yes (1997) - HEENT Hx HEENT Disorder: No - Renal Hx Renal Disorder: No - Endocrine/Metabolic Hx Endocrine Disorders: No Hx Diabetes Mellitus Type 1: Yes - Hematological/Oncological Hx Blood Transfusions: No Hx Blood Transfusion Reaction: No - Integumentary Hx Dermatological Disorder: No Hx Melanoma: Yes (R arm) - Musculoskeletal/Rheumatological Hx Musculoskeletal Disorders: Yes Hx Back Pain: Yes Hx Falls: Yes - Gastrointestinal Hx Gastrointestinal Disorders: No - Genitourinary/Gynecological Hx Genitourinary Disorders: No Hx Sexually Transmitted Diseases: No - Psychiatric Hx Bipolar Disorder: Yes Hx Depression: Yes Hx Substance Use: No - Anesthesia Hx Anesthesia: No Hx Anesthesia Reactions: No Hx Malignant Hyperthermia: No - Suicidal Assessment Feels Threatened In Home Enviroment: No Family/Social History - Physician Review Nursing Documentation Reviewed: Yes Family/Social History: No Known Family HX Smoking Status: Former Smoker Hx Alcohol Use: No Hx Substance Use: No Allergies/Home Meds Allergies/Adverse Reactions: Allergies No Known Allergies Allergy (Verified 10/03/18 19:09) Home Medications: Home Meds Medication Instructions Recorded Confirmed FLUoxetine [Prozac] 40 mg PO DAILY 10/03/18 10/03/18 Rosuvastatin Calcium [Crestor] 40 mg PO DAILY 10/03/18 10/03/18 Review of Systems - Physician Review All systems were reviewed & negative as marked: Yes - Review of Systems Constitutional: absent: Fevers, Night Sweats Respiratory: absent: SOB Cardiovascular: absent: Chest Pain Gastrointestinal: Abdominal Pain, Nausea. absent: Vomiting Neurological: Dizziness Physical Exam Vital Signs Reviewed: Yes Vital Signs Temp Pulse Resp BP Pulse Ox 10/03/18 19:16 133/69 10/03/18 19:10 97.4 F L 52 L 18 177/127 H 99 Temperature: Afebrile Blood Pressure: Hypertensive Pulse: Bradycardic Respiratory Rate: Normal Appearance: Positive for: Well-Appearing, Non-Toxic Pain Distress: None Mental Status: Positive for: Alert and Oriented X 3 - Systems Exam Head: Present: Atraumatic, Normocephalic Pupils: Present: PERRL Extroacular Muscles: Present: EOMI Conjunctiva: Present: Normal Mouth: Present: Moist Mucous Membranes Neck: Present: Normal Range of Motion Respiratory/Chest: Present: Clear to Auscultation, Good Air Exchange. No: Respiratory Distress, Accessory Muscle Use Cardiovascular: Present: Normal S1, S2, Bradycardic. No: Murmurs Abdomen: Present: Tenderness (Tenderness to palpation of the Epigastrium), Distention (Slightly distended). No: Peritoneal Signs, Rebound, Guarding Back: Present: Normal Inspection Upper Extremity: Present: Normal Inspection. No: Cyanosis, Edema Lower Extremity: Present: Normal Inspection. No: Edema Neurological: Present: GCS=15, CN II-XII Intact, Speech Normal Skin: Present: Warm, Dry, Normal Color. No: Rashes Psychiatric: Present: Alert, Oriented x 3, Normal Insight, Normal Concentration, Anxious, Other ([place]) Medical Decision Making ED Course and Treatment: 10/03/18 20:18 Impression: 68 year old female presents with epigastric pain Differential Diagnosis included but are not limited to: Adverse medication effect Anxiety Plan: -- EKG -- CBC -- Maalox -- Elixir -- Pepcid -- Reglan --Xanax --Urinalysis --Potassium chloride IVPB --K Dur --Keflex -- Reassess and disposition Prior Visits: Notes and results from previous visits were reviewed. Progress Notes: 10/03/18 20:34 Patient reevaluated and states she's had improvement in abdominal pain, but no change in suprapubic pain. She still appears to be fretful and anxious. Chemistries reviewed with hypokalemia of 3.0 noted. Xanax, K Dur andIV potassium ordered. ordered. 10/03/18 20:46 No leukocytosis noted. Pending Urinalysis. 10/03/18 21:51 Urinalysis show trace ketones, protein and leukocyte esterase. Keflex ordered. Patient noted to be laying in bed comfortably. [id number] updated on findings and is in agreement with discharge and follow up at home. - Lab Interpretations Lab Results: 10/03/18 19:42 10/03/18 19:42 Lab Results 10/03/18 19:42: Sodium 120 L, Potassium 3.0 L, Chloride 81 L, Carbon Dioxide 27, Anion Gap 14, BUN 15, Creatinine 0.7, Est GFR ( Amer) > 60, Est GFR (Non-Af Amer) > 60, Random Glucose 130 H, Calcium 9.0, Total Bilirubin 1.0, AST 23, ALT 13, Alkaline Phosphatase 43, Troponin I < 0.01, Total Protein 6.8, Albumin 4.2, Globulin 2.6, Albumin/Globulin Ratio 1.6, Lipase 99 10/03/18 19:42: WBC 9.8, RBC 4.45, Hgb 13.9, Hct 37.4, MCV 84.0 D, MCH 31.2, MCHC 37.2 H, RDW 12.0, Plt Count 268, MPV 10.2, Neut % (Auto) 68.0, Lymph % (Auto) 24.8, Pender % (Auto) 6.5 H, Eos % (Auto) 0.7 L, Baso % (Auto) 0.0, Lymph # (Auto) 2.4, Pender # (Auto) 0.6, Eos # (Auto) 0.1, Baso # (Auto) 0.00, Absolute Neuts (auto) 6.66 H I have reviewed the lab results: Yes - EKG Interpretation EKG Interpretation (Text): 10/03/18 20:24 Sinus bradycardia @47bpm No ST elevations, Normal QT interval Interpreted by ED Physician: Yes Type: 12 lead EKG - Medication Orders Current Medication Orders: Al Hydrox/Mg Hydrox/Simethicone (Maalox Plus 30 Ml) 30 ml PO STAT STA Stop: 10/03/18 19:46 Belladonna/Phenobarbital ( Elixir) 5 ml PO STAT STA Stop: 10/03/18 19:46 Famotidine (Pepcid) 20 mg IVP STAT STA Stop: 10/03/18 19:46 Sodium Chloride (Sodium Chloride 0.9%) 1,000 mls @ 999 mls/hr IV .Q1H1M STA Stop: 10/03/18 20:45 Metoclopramide HCl (Reglan) 10 mg IVP STAT STA Stop: 10/03/18 19:46 - Scribe Statement The provider has reviewed the documentation as recorded by the Scribe Mitchel Gauthier Provider Scribe Attestation: All medical record entries made by the Scribe were at my direction and personally dictated by me. I have reviewed the chart and agree that the record accurately reflects my personal performance of the history, physical exam, medical decision making, and the department course for this patient. I have also personally directed, reviewed, and agree with the discharge instructions and disposition. Disposition/Present on Arrival - Present on Arrival Any Indicators Present on Arrival: No History of DVT/PE: No History of Uncontrolled Diabetes: No Urinary Catheter: No History of Decub. Ulcer: No History Surgical Site Infection Following: None - Disposition Have Diagnosis and Disposition been Completed?: Yes Diagnosis: Adverse effects of medication, Anxiety, UTI (urinary tract infection) Disposition: HOME/ ROUTINE Disposition Time: 22:17 Patient Plan: Discharge Patient Problems: Current Active Problems Problem Status Onset Gastritis Acute Adverse effects of medication Acute Discharge Instructions (ExitCare): Adverse Drug Reactions, Adult (DC), Urinary Tract Infection, Adult (DC), Anxiety, Adult (DC) Print Language: ICELANDIC Additional Instructions: All medical record entries made by the Scribe were at my direction and personally dictated by me. I have reviewed the chart and agree that the record accurately reflects my personal performance of the history, physical exam, medical decision making, and the department course for this patient. I have also personally directed, reviewed, and agree with the discharge instructions and disposition. Please follow up with Dr. Fernandez for medical reconciliation Please continue to drink fluids and remember to take your prescriptions as prescribed Prescriptions: Cephalexin [Keflex] 500 mg PO BID 5 Days #10 capsule Famotidine [Pepcid] 40 mg PO DAILY #10 tablet Referrals: Daxa Fernandez MD [Staff Provider] - Follow up with primary Forms: [employer] (Portuguese)
[2018-10-03 20:12] LABS: ALB/GLOB RATIO 1.6 (1.1-1.8); ALBUMIN 4.2 g/dL (3.0-4.8); ALT/SGPT 13 U/L (7-56); AST/SGOT 23 U/L (14-36); BLOOD UREA NITROGEN 15 mg/dL (7-21); GFR NON-AFRICAN AMERICAN > 60; LIPASE 99 U/L (23-300)
[2018-10-03 20:13] LABS: TROPONIN I < 0.01 ng/mL
[2018-10-03 20:23] LABS: EOS # 0.1 (0.0-0.7); EOS % 0.7 % (1.5-5.0); HEMOGLOBIN 13.9 g/dL (12.0-16.0); LYMPH # 2.4 (1.2-3.4); LYMPH % 24.8 % (22.0-35.0); MEAN CORPUSCULAR HEMOGLOBIN 31.2 pg (25.0-35.0); MEAN CORPUSCULAR HGB CONC 37.2 g/dl (31.0-37.0); MEAN PLATELET VOLUME 10.2 fl (7.0-11.0); MONO # 0.6 (0.1-0.6); MONO % 6.5 % (1.0-6.0); RBC 4.45 {null, 10^6/uL} (3.5-6.1); WHITE BLOOD COUNT 9.8 {null, 10^3/uL} (4.5-11.0)
[2018-10-03] MEDS ORDERED: Potassium Chloride 40 mEq/30 ml LIQ UD PO STA (20:24)
[2018-10-03 20:55] LABS: URINE BILIRUBIN NEGATIVE (NEGATIVE); URINE BLOOD NEGATIVE (NEGATIVE); URINE GLUCOSE (UA) NEGATIVE (NEGATIVE); URINE LEUKOCYTE ESTERASE TRACE Leu/uL (NEGATIVE); URINE PROTEIN TRACE mg/dL (<30 mg/dL); URINE UROBILINOGEN 0.2 E.U./dL (<1 E.U./dL)
[2018-10-03 21:00] LABS: URINE APPEARANCE CLEAR (CLEAR); URINE COLOR YELLOW (YELLOW)
[2018-10-03 21:22] LABS: URINE RBC 0 - 2 /hpf (0-2)
[2018-10-03 21:23] LABS: URINE BACTERIA SMALL /hpf
[2018-10-03] MEDS ORDERED: DiphenhydrAMINE 50 mg/ml Inj ONE (22:31)
[2018-10-03 23:14] VITALS: BP 107/57; PULSE 45; TEMP 98.2; O2SAT 96
--- NOTE | 2018-10-04 10:44 | CARD ---
APPROVED REPORT Date of service: 10/03/2018 EKG Measurement Heart [id number] <Conclusion> Marked sinus bradycardia Otherwise normal ECG
== END 2018-10-03 23:14 | disposition home or self-care (01) ==
LOC: ED 19:02
DX: F41.9 Anxiety disorder, unspecified (principal); N39.0 Urinary tract infection, site not specified; T50.995A Adverse effect of other drugs, medicaments and biological substances, initial encounter; Y92.89 Other specified places as the place of occurrence of the external cause; I10 Essential (primary) hypertension; Z86.73 Personal history of transient ischemic attack (TIA), and cerebral infarction without residual deficits; Z87.891 Personal history of nicotine dependence
CPT/HCPCS: 80053; 81001; 83690; 84484; 85025; 87086; 93005; 96374; 96375; 99283; J2765; J3480; J7030

== ENCOUNTER 2018-10-14 19:41 | Observation (INO) | payer MEDICARE, OTHER ==
[2018-10-14 19:57] VITALS: BMI 35.0
--- NOTE | 2018-10-14 20:44 | ED PDOC ---
Arrival/HPI - General Chief Complaint: Psychiatric Evaluation Time Seen by Provider: 10/14/18 19:43 Historian: Patient - History of Present Illness Narrative History of Present Illness (Text): 10/14/18 20:45 68 year old female, with history of depression and generalized anxiety disorder, presents to emergency department following visiting psychiatrist's office earlier today. Patient reports visiting psychiatrist , when he wanted her to be admitted for psychiatric treatment. Patient reports currently taking prozac, klonopin, and wellbutrin. Doctor wants to discontinue wellbutrin and start her on abilify today. Patient denies any SI, HI, fever, headaches, nausea, or vomiting. PMD [place] Time/Duration: Other (earlier today ) Symptom Onset: Gradual Symptom Course: Unchanged Activities at Onset: Light Context: Other (psychiatrist office ) Past Medical History - Provider Review Nursing Documentation Reviewed: Yes - Infectious Disease Hx of Infectious Diseases: None - Cardiac Hx Cardiac Disorders: Yes Hx Hypertension: Yes Hx Pacemaker: No - Pulmonary Hx Respiratory Disorders: No - Neurological HX Cerebrovascular Accident: Yes (1997) Hx Paralysis: No Hx Transient Ischemic Attacks (TIA): Yes (1997) - HEENT Hx HEENT Disorder: No - Renal Hx Renal Disorder: No - Endocrine/Metabolic Hx Endocrine Disorders: No Hx Diabetes Mellitus Type 1: Yes - Hematological/Oncological Hx Blood Transfusions: No Hx Blood Transfusion Reaction: No - Integumentary Hx Dermatological Disorder: No Hx Melanoma: Yes (R arm) - Musculoskeletal/Rheumatological Hx Musculoskeletal Disorders: Yes Hx Back Pain: Yes Hx Falls: Yes - Gastrointestinal Hx Gastrointestinal Disorders: No - Genitourinary/Gynecological Hx Genitourinary Disorders: No Hx Sexually Transmitted Diseases: No - Psychiatric Hx Anxiety: Yes Hx Bipolar Disorder: Yes Hx Depression: Yes Hx Substance Use: No - Anesthesia Hx Anesthesia: No Hx Anesthesia Reactions: No Hx Malignant Hyperthermia: No - Suicidal Assessment Feels Threatened In Home Enviroment: No Family/Social History - Physician Review Nursing Documentation Reviewed: Yes Family/Social History: Unknown Family HX Smoking Status: Former Smoker Hx Alcohol Use: No Hx Substance Use: No Allergies/Home Meds Allergies/Adverse Reactions: Allergies No Known Allergies Allergy (Verified 10/03/18 19:09) Home Medications: Home Meds Medication Instructions Recorded Confirmed FLUoxetine [Prozac] 40 mg PO DAILY 10/03/18 10/14/18 Rosuvastatin Calcium [Crestor] 40 mg PO DAILY 10/03/18 10/14/18 Aspirin [Adult Aspirin] 1 tab PO DAILY 10/14/18 10/14/18 Fluticasone Nasal [Flonase] 1 spray IH PRN PRN 10/14/18 10/14/18 Ramipril [Altace] 5 mg PO DAILY 10/14/18 10/14/18 Review of Systems - Physician Review All systems were reviewed & negative as marked: Yes - Review of Systems Constitutional: absent: Fevers Respiratory: absent: SOB, Cough Cardiovascular: absent: Chest Pain Gastrointestinal: absent: Abdominal Pain, Nausea, Vomiting Genitourinary Female: absent: Urine Output Changes Musculoskeletal: absent: Back Pain, Neck Pain Neurological: absent: Headache Psychiatric: absent: Suicidal Ideation Physical Exam Vital Signs Reviewed: Yes Vital Signs Temp Pulse Resp BP Pulse Ox 10/14/18 20:07 97.7 F 53 L 18 129/48 L 98 Temperature: Afebrile Blood Pressure: Normal Pulse: Regular Respiratory Rate: Normal Appearance: Positive for: Well-Appearing, Non-Toxic, Comfortable Pain Distress: None Mental Status: Positive for: Alert and Oriented X 3 Finger Stick Blood Glucose: 112 - Systems Exam Head: Present: Atraumatic, Normocephalic Pupils: Present: PERRL Extroacular Muscles: Present: EOMI Conjunctiva: Present: Normal Mouth: Present: Moist Mucous Membranes Neck: Present: Normal Range of Motion Respiratory/Chest: Present: Clear to Auscultation, Good Air Exchange. No: Respiratory Distress, Accessory Muscle Use Cardiovascular: Present: Regular Rate and Rhythm, Normal S1, S2. No: Murmurs Abdomen: No: Tenderness, Distention, Peritoneal Signs Back: Present: Normal Inspection Upper Extremity: Present: Normal Inspection. No: Cyanosis, Edema Lower Extremity: Present: Normal Inspection. No: Edema Neurological: Present: GCS=15, CN II-XII Intact, Speech Normal Skin: Present: Warm, Dry, Normal Color. No: Rashes Psychiatric: Present: Alert, Oriented x 3, Depressed Mood Medical Decision Making ED Course and Treatment: 10/14/18 20:51 Impression: 68 year old female presents to emergency department for psychiatric treatment as instructed by psychiatrist earlier today. Plan: -- EKG -- Labs -- Chest X-ray -- Urinalysis -- Reassess and disposition Prior Visits: Notes and results from previous visits were reviewed. Progress Notes: EKG : SB at 45 bpm, no acute ST changes. CXR : NAD. Labs reviewed : NA 128, K 3.0 KCl po 40 mEq PO x2. KCl 20 mEq IV x2 riders. Patient seen and evaluated by PES. PES notified that the patient will need medical admission to correct her hyponatremia and hypokalemia. On reevaluation, patient reports no CP, no SOB. On exam, patient remains awake alert and oriented 3 in no acute distress. Case d/w Dr. Mac and emergency medicine medical director, agrees with plan for medical admission under the hospitalist with consult to psych. - RAD Interpretation Radiology Orders: 10/14/18 20:11 CHEST PORTABLE [RAD] Stat - PA / PILING CUTTER / Resident Statement MD/DO has reviewed & agrees with the documentation as recorded. - Scribe Statement The provider has reviewed the documentation as recorded by the Scribe Taqueria Montano All medical record entries made by the Scribe were at my direction and personally dictated by me. I have reviewed the chart and agree that the record accurately reflects my personal performance of the history, physical exam, medical decision making, and the department course for this patient. I have also personally directed, reviewed, and agree with the discharge instructions and disposition. Disposition/Present on Arrival - Present on Arrival Any Indicators Present on Arrival: No History of DVT/PE: No History of Uncontrolled Diabetes: No Urinary Catheter: No History of Decub. Ulcer: No History Surgical Site Infection Following: None - Disposition Have Diagnosis and Disposition been Completed?: Yes Diagnosis: Hyponatremia, Hypokalemia Disposition: HOSPITALIZED Disposition Time: 22:00 Patient Plan: Admission Patient Problems: Current Active Problems Problem Status Onset Hypokalemia Acute Hyponatremia Acute Condition: STABLE Referrals: FAMILY PROVIDER,NO [Primary Care Provider] - Follow up with primary Forms: [employer] (Eritrean)
[2018-10-14] MEDS ORDERED: Lidocaine 5% Patch TD STA (21:07)
[2018-10-14 21:10] LABS: BASO # 0.01 K/mm3 (0.0-2.0); BASO % 0.1 % (0.0-3.0); EOS # 0.1 (0.0-0.7); EOS % 1.3 % (1.5-5.0); HEMOGLOBIN 13.8 g/dL (12.0-16.0); LYMPH # 2.9 (1.2-3.4); LYMPH % 33.2 % (22.0-35.0); MEAN CORPUSCULAR HEMOGLOBIN 31.1 pg (25.0-35.0); MEAN CORPUSCULAR HGB CONC 36.1 g/dl (31.0-37.0); MEAN PLATELET VOLUME 9.6 fl (7.0-11.0); MONO # 0.7 (0.1-0.6); MONO % 8.1 % (1.0-6.0); RBC 4.44 10^6/uL (3.5-6.1); RED CELL DISTRIBUTION WIDTH 12.2 % (11.5-14.5); WHITE BLOOD COUNT 8.6 10^3/uL (4.5-11.0)
[2018-10-14 21:14] LABS: PH,URINE 6.5 (4.7-8.0); URINE BILIRUBIN NEGATIVE (NEGATIVE); URINE BLOOD NEGATIVE (NEGATIVE); URINE GLUCOSE (UA) NEGATIVE (NEGATIVE); URINE LEUKOCYTE ESTERASE SMALL Leu/uL (NEGATIVE); URINE PROTEIN NEGATIVE mg/dL (<30 mg/dL); URINE UROBILINOGEN 0.2 E.U./dL (<1 E.U./dL)
[2018-10-14 21:15] LABS: URINE APPEARANCE CLEAR (CLEAR)
[2018-10-14 21:25] LABS: ALB/GLOB RATIO 1.6 (1.1-1.8); ALBUMIN 4.4 g/dL (3.0-4.8); ALT/SGPT 14 U/L (7-56); AST/SGOT 27 U/L (14-36); BLOOD UREA NITROGEN 20 mg/dL (7-21); CALCIUM 9.5 mg/dL (8.4-10.5); GFR NON-AFRICAN AMERICAN > 60
[2018-10-14] MEDS ORDERED: Potassium Chloride 20 mEq/15 ml LIQ UD PO STA (21:28)
[2018-10-14] MEDS ORDERED: Sodium Chloride 0.9% 1,000 ML IV STA (21:28)
[2018-10-14 21:31] LABS: BARBITURATES, UR NEGATIVE (NEGATIVE)
[2018-10-14 21:42] LABS: BENZODIAZEPINES, UR NEGATIVE (NEGATIVE); OPIATES, UR NEGATIVE (NEGATIVE); PHENCYCLIDINE, UR NEGATIVE (NEGATIVE)
[2018-10-14] MEDS: Potassium Chloride 20 mEq/15 ml LIQ UD PO ONE ×2 (22:30→23:37)
--- NOTE | 2018-10-14 22:56 | CP.PCM.HP ---
<Solomon Truong - Last Filed: 10/14/18 23:24> History of Present Illness - History of Present Illness History of Present Illness: H&P for Hospitalist Service Solomon Truong , PGY-3 CC: Depression/anxiety This is a 68 yo F with PMH of HTN, IDDM, HLD, Depression/anxiety, and Bipolar disorder who [place] [facility] [place] of worsening depression and anxiety for several days. Reports saw her PMD (Dr. Hughes) last (9 days prior) and was told her labs were fine then, but in the last few days has been worse and is unable to pinpoint a reason why. Presented for psych admission, but was found to be hyponatremic to 129 and hypokalemic at 3.0, so PES recommened medical admission for correction of electrolytes prior to psych admission. Patient reports poor appetite today due to 1x NBNB emesis after eating a slice of pizza today, but states she had been eating otherwise and drinking fluids daily. Her son at bedside disagrees, reports that she has been eating and drinking less for the last several days, which he suspected was due to her depression. Both report compliance with medications. She denies acute symptoms, including chest pain, shortness of breath, emesis prior to today, diarrhea, fevers, chills, dysuria, hematuria, urinary frequency. Reports hx of DM neuropathy, but denies flair-ups. Recently treated for UTI from approx 2 weeks ago, but reports no further symptoms related to it. Denies A/V hallucinations, SI, HI. Of note in the ED, bradycardic on exam and on EKG to 48, but sinus rhythm and patient hemodynamically stable. Additionally, labs notable for hypomagnesemia of 1.2, in addition to abnormalities described above. BG well controlled, 112 on labs. 12-system ROS reviewed and negative, except as above. PMH: as above PSH: D&C Fam Hx: HTN, DM Soc Hx: Denies tobacco, alcohol, illicits PMD: Dr. Hughes Present on Admission - Present on Admission Any Indicators Present on Admission: No History of DVT/PE: No History of Uncontrolled Diabetes: No Urinary Catheter: No Review of Systems - Review of Systems All systems: reviewed and no additional remarkable complaints except (as per HPI) Past Patient History - Infectious Disease Hx of Infectious Diseases: None - Past Social History Smoking Status: Former Smoker - CARDIAC Hx Cardiac Disorders: Yes Hx Hypertension: Yes Hx Pacemaker: No - PULMONARY Hx Respiratory Disorders: No - NEUROLOGICAL HX Cerebrovascular Accident: Yes (1997) Hx Paralysis: No Hx Transient Ischemic Attacks (TIA): Yes (1997) - HEENT Hx HEENT Problems: No - RENAL Hx Chronic Kidney Disease: No - ENDOCRINE/METABOLIC Hx Endocrine Disorders: No Hx Diabetes Mellitus Type 1: Yes - HEMATOLOGICAL/ONCOLOGICAL Hx Blood Transfusions: No Hx Blood Transfusion Reaction: No - INTEGUMENTARY Hx Dermatological Problems: No Hx Melanoma: Yes (R arm) - MUSCULOSKELETAL/RHEUMATOLOGICAL Hx Musculoskeletal Disorders: Yes Hx Back Pain: Yes Hx Falls: Yes - GASTROINTESTINAL Hx Gastrointestinal Disorders: No - GENITOURINARY/GYNECOLOGICAL Hx Genitourinary Disorders: No Hx Sexually Transmitted Disorders: No - PSYCHIATRIC Hx Anxiety: Yes Hx Bipolar Disorder: Yes Hx Depression: Yes Hx Substance Use: No - SURGICAL HISTORY Hx Surgeries: No - ANESTHESIA Hx Anesthesia: No Hx Anesthesia Reactions: No Hx Malignant Hyperthermia: No Meds Allergies/Adverse Reactions: Allergies Allergy/AdvReac Type Severity Reaction Status Date / Time No Known Allergies Allergy Verified 10/03/18 19:09 Physical Exam - Constitutional Appears: Non-toxic, No Acute Distress, Chronically Ill - Head Exam Head Exam: ATRAUMATIC, NORMAL INSPECTION, NORMOCEPHALIC - Eye Exam Eye Exam: EOMI, Normal appearance. absent: Conjunctival injection, Scleral icterus Pupil Exam: absent: Irregular, Unequal - ENT Exam ENT Exam: Mucous Membranes Dry - Neck Exam Neck exam: Negative for: Lymphadenopathy, Tenderness, Thyromegaly - Respiratory Exam Respiratory Exam: Clear to Auscultation Bilateral, NORMAL BREATHING PATTERN. absent: Accessory Muscle Use, Chest Wall Tenderness, Decreased Breath Sounds, Rales, Rhonchi, Wheezes, Respiratory Distress - Cardiovascular Exam Cardiovascular Exam: Bradycardia, REGULAR RHYTHM, +S1, +S2. absent: Tachyca rdia, Irregular Rhythm, JVD, RRR, +S4 - GI/Abdominal Exam GI & Abdominal Exam: Normal Bowel Sounds, Soft. absent: Diminished Bowel Sounds, Distended, Firm, Hyperactive Bowel Sounds, Hypoactive Bowel Sounds, Rigid, Tenderness - Extremities Exam Extremities exam: Positive for: normal capillary refill, normal inspection, p edal pulses present. Negative for: calf tenderness, pedal edema, tenderness - Back Exam Back exam: absent: CVA tenderness (L), CVA tenderness (R) - Neurological Exam Additional comments: awake and alert, moving all extremities spontaneously and on command, 5/5 motor in bilateral UE, no tremors appreciated, no tongue fasiculations or deviation on extrusion, motor appears grossly intact and equal bilaterally - Psychiatric Exam Psychiatric exam: Anxious, Depressed - Skin Skin Exam: Dry, Intact, Normal Color, Warm Results - Vital Signs Recent Vital Signs: Last Vital Signs Temp 97.7 F 10/14/18 20:07 Pulse 53 L 10/14/18 20:07 Resp 18 10/14/18 20:07 BP 129/48 L 10/14/18 20:07 Pulse Ox 98 10/14/18 20:07 - Labs Result Diagrams: 10/14/18 20:25 10/14/18 20:25 Labs: Laboratory Results - last 24 hr 10/14/18 10/14/18 10/14/18 20:15 20:25 20:25 WBC 8.6 RBC 4.44 Hgb 13.8 Hct 38.2 MCV 86.0 MCH 31.1 MCHC 36.1 RDW 12.2 Plt Count 219 MPV 9.6 Neut % (Auto) 57.3 Lymph % (Auto) 33.2 [place] % (Auto) 8.1 H Eos % (Auto) 1.3 L Baso % (Auto) 0.1 Lymph # (Auto) 2.9 [place] # (Auto) 0.7 H Eos # (Auto) 0.1 Baso # (Auto) 0.01 Absolute Neuts (auto) 4.93 Sodium Potassium Chloride Carbon Dioxide Anion Gap BUN Creatinine Est GFR ( Amer) Est GFR (Non-Af Amer) POC Glucose (mg/dL) 112 H Random Glucose Calcium Magnesium Total Bilirubin AST ALT Alkaline Phosphatase Total Protein Albumin Globulin Albumin/Globulin Ratio Urine Color yellow Urine Appearance Clear Urine pH 6.5 Ur Specific [place] 1.020 Urine Protein Negative Urine Glucose (UA) Negative Urine Ketones Negative Urine Blood Negative Urine Nitrate Negative Urine Bilirubin Negative Urine Urobilinogen 0.2 Ur Leukocyte Esterase Small H Urine RBC TEST NOT PERFORMED Urine WBC 2 - 5 Ur Epithelial Cells 10 - 12 H Urine Opiates Screen Urine Methadone Screen Ur Barbiturates Screen Ur Phencyclidine Scrn Ur Amphetamines Screen U Benzodiazepines Scrn U Oth Cocaine Metabols U Cannabinoids Screen Alcohol, Quantitative 03/10/14/18 10/14/18 20:25 20:25 20:25 WBC RBC Hgb Hct MCV MCH MCHC RDW Plt Count MPV Neut % (Auto) Lymph % (Auto) [place] % (Auto) Eos % (Auto) Baso % (Auto) Lymph # (Auto) [place] # (Auto) Eos # (Auto) Baso # (Auto) Absolute Neuts (auto) Sodium 129 L Potassium 3.0 L Chloride 86 L Carbon Dioxide 29 Anion Gap 17 BUN 20 Creatinine 0.7 Est GFR ( Amer) > 60 Est GFR (Non-Af Amer) > 60 POC Glucose (mg/dL) Random Glucose 104 Calcium 9.5 Magnesium 1.2 L Total Bilirubin 0.8 AST 27 ALT 14 Alkaline Phosphatase 51 Total Protein 7.1 Albumin 4.4 Globulin 2.7 Albumin/Globulin Ratio 1.6 Urine Color Urine Appearance Urine pH Ur Specific [place] Urine Protein Urine Glucose (UA) Urine Ketones Urine Blood Urine Nitrate Urine Bilirubin Urine Urobilinogen Ur Leukocyte Esterase Urine RBC Urine WBC Ur Epithelial Cells Urine Opiates Screen Negative Urine Methadone Screen Negative Ur Barbiturates Screen Negative Ur Phencyclidine Scrn Negative Ur Amphetamines Screen Negative U Benzodiazepines Scrn Negative U Oth Cocaine Metabols Negative U Cannabinoids Screen Negative Alcohol, Quantitative < 10 Assessment & Plan - Assessment and Plan (Free Text) Assessment: This is a 68 yo F with PMH of HTN, IDDM, HLD, Depression/anxiety, and Bipolar disorder who presented [place] [facility] [place] of worsening depression and anxiety for several days. She is being admitted to medical service first for correction of electrolyte abnormalities prior to psych admission. Plan: 1) Depression/anxiety -Psych consulted, pending their recs Will hold prozac due to bradycardia, otherwise will continue current regimen until evaluated by psych 2) Electrolyte Derangements -HypoNa 129, HypoK 3.0, HypoMg 1.2, HypoCl 86 -suspect 2/2 poor PO intake, as patient also appears dry, low chloride, and BUN/Cr is 20/0.7 -urine electrolytes, Cr, urea, and urine/serum osms ordered, will f/u -after obtaining urine, will start on NS 150cc/hr -Mag and K repletion ordered (PO and IV K, IV Mag), will follow up on AM labs and replete further as needed -No appreciable neurologic deficits, Na 129 no acutely concerning, will f/u on AM labs but suspect will be correct with IVF 3) Bradycardia -suspect 2/2 hypoK and hypoMg -sinus zoë on EKG, but hemodynamically stable, and no cardiac complaints -given DM, age, and female gender, at increased risk for atypical ACS, will obtain trop now and repeat Trop/EKG in AM to r/o atypical ACS -admit to remote telemetry for monitoring -holding home metoprolol and prozac 4) DM -given poor intake today, will hold current regimen overnight, cover with sliding scale -if able to tolerate PO intake tomorrow AM, can consider restarting home regimen 5) HTN -continue Ramipril, holding Metoprolol due to bradycardia 6) HLD -On crestor, non-formulary, so will switch to equivalent Lipitor dosing for this admission, can resume Crestor after discharge Ppx: continue home pepcid for GI, SCDs for DVT Dispo: Remote telemetry, pending psych unit after medical issues resolved Seen, reviewed, and discussed with attending, Dr. Mac. Decision To Admit - Pt Status Changed To: Hospital Disposition Of: Inpatient Admission - Admit Certification Admit to Inpatient:: After my assessment, the patient will require hospitalization for at least two midnights. This is because of the severity of symptoms shown, intensity of services needed, and/or the medical risk in this patient being treated as an outpatient. - . Bed Request Type: Remote Telemetry <Leroy Mac - Last Filed: 10/15/18 03:24> Results - Vital Signs Recent Vital Signs: Last Vital Signs Temp 97.7 F 10/14/18 20:07 Pulse 59 L 10/15/18 02:00 Resp 18 10/15/18 01:01 BP 149/68 10/15/18 01:01 Pulse Ox 99 10/15/18 01:01 - Labs Result Diagrams: 10/14/18 20:25 10/14/18 20:25 Labs: Laboratory Results - last 24 hr 10/14/18 10/14/18 10/14/18 20:15 20:25 20:25 WBC 8.6 RBC 4.44 Hgb 13.8 Hct 38.2 MCV 86.0 MCH 31.1 MCHC 36.1 RDW 12.2 Plt Count 219 MPV 9.6 Neut % (Auto) 57.3 Lymph % (Auto) 33.2 [place] % (Auto) 8.1 H Eos % (Auto) 1.3 L Baso % (Auto) 0.1 Lymph # (Auto) 2.9 [place] # (Auto) 0.7 H Eos # (Auto) 0.1 Baso # (Auto) 0.01 Absolute Neuts (auto) 4.93 Sodium Potassium Chloride Carbon Dioxide Anion Gap BUN Creatinine Est GFR ( Amer) Est GFR (Non-Af Amer) POC Glucose (mg/dL) 112 H Random Glucose Serum Osmolality Calcium Magnesium Total Bilirubin AST ALT Alkaline Phosphatase Troponin I Total Protein Albumin Globulin Albumin/Globulin Ratio Urine Color yellow Urine Appearance Clear Urine pH 6.5 Ur Specific [place] 1.020 Urine Protein Negative Urine Glucose (UA) Negative Urine Ketones Negative Urine Blood Negative Urine Nitrate Negative Urine Bilirubin Negative Urine Urobilinogen 0.2 Ur Leukocyte Esterase Small H Urine RBC TEST NOT PERFORMED Urine WBC 2 - 5 Ur Epithelial Cells 10 - 12 H Urine Osmolality Ur Random Creatinine Ur Random Sodium Ur Random Potassium Ur Random Urea Nitrogn Urine Opiates Screen Urine Methadone Screen Ur Barbiturates Screen Ur Phencyclidine Scrn Ur Amphetamines Screen U Benzodiazepines Scrn U Oth Cocaine Metabols U Cannabinoids Screen Alcohol, Quantitative 10/14/18 10/14/18 10/14/18 20:25 20:25 20:25 WBC RBC Hgb Hct MCV MCH MCHC RDW Plt Count MPV Neut % (Auto) Lymph % (Auto) [place] % (Auto) Eos % (Auto) Baso % (Auto) Lymph # (Auto) [place] # (Auto) Eos # (Auto) Baso # (Auto) Absolute Neuts (auto) Sodium 129 L Potassium 3.0 L Chloride 86 L Carbon Dioxide 29 Anion Gap 17 BUN 20 Creatinine 0.7 Est GFR ( Amer) > 60 Est GFR (Non-Af Amer) > 60 POC Glucose (mg/dL) Random Glucose 104 Serum Osmolality Calcium 9.5 Magnesium 1.2 L Total Bilirubin 0.8 AST 27 ALT 14 Alkaline Phosphatase 51 Troponin I Total Protein 7.1 Albumin 4.4 Globulin 2.7 Albumin/Globulin Ratio 1.6 Urine Color Urine Appearance Urine pH Ur Specific [place] Urine Protein Urine Glucose (UA) Urine Ketones Urine Blood Urine Nitrate Urine Bilirubin Urine Urobilinogen Ur Leukocyte Esterase Urine RBC Urine WBC Ur Epithelial Cells Urine Osmolality Ur Random Creatinine Ur Random Sodium Ur Random Potassium Ur Random Urea Nitrogn Urine Opiates Screen Negative Urine Methadone Screen Negative Ur Barbiturates Screen Negative Ur Phencyclidine Scrn Negative Ur Amphetamines Screen Negative U Benzodiazepines Scrn Negative U Oth Cocaine Metabols Negative U Cannabinoids Screen Negative Alcohol, Quantitative < 10 10/14/18 10/14/18 10/15/18 20:25 20:25 00:45 WBC RBC Hgb Hct MCV MCH MCHC RDW Plt Count MPV Neut % (Auto) Lymph % (Auto) [place] % (Auto) Eos % (Auto) Baso % (Auto) Lymph # (Auto) [place] # (Auto) Eos # (Auto) Baso # (Auto) Absolute Neuts (auto) Sodium Potassium Chloride Carbon Dioxide Anion Gap BUN Creatinine Est GFR ( Amer) Est GFR (Non-Af Amer) POC Glucose (mg/dL) Random Glucose Serum Osmolality 265 L Calcium Magnesium Total Bilirubin AST ALT Alkaline Phosphatase Troponin I < 0.01 Total Protein Albumin Globulin Albumin/Globulin Ratio Urine Color Urine Appearance Urine pH Ur Specific [place] Urine Protein Urine Glucose (UA) Urine Ketones Urine Blood Urine Nitrate Urine Bilirubin Urine Urobilinogen Ur Leukocyte Esterase Urine RBC Urine WBC Ur Epithelial Cells Urine Osmolality 533 Ur Random Creatinine 94 Ur Random Sodium 44 Ur Random Potassium 26.4 Ur Random Urea Nitrogn 916 Urine Opiates Screen Urine Methadone Screen Ur Barbiturates Screen Ur Phencyclidine Scrn Ur Amphetamines Screen U Benzodiazepines Scrn U Oth Cocaine Metabols U Cannabinoids Screen Alcohol, Quantitative Attending/Attestation - Attestation I have personally seen and examined this patient.: Yes I have fully participated in the care of the patient.: Yes I have reviewed all pertinent clinical information: Yes Notes (Text): 10/15/18 03:10 Patient was seen when she was in -02. Medical record was reviewed. Agree with history, physical examination, assessment and plan. She complained of burning at site of heplock where she was receiving K-[employer]is. It was stopped when only a few CC's were left in the bag. She states she fell down and hit her head, denies LOC.
[2018-10-14] MEDS: Magnesium Sulfate 2 gm/50 ml 2 GM/50 ML BAG IVPB SCH (23:00)
[2018-10-14] MEDS ORDERED: Dextrose 50% SYRINGE Inj (50 ml) IV PRN (23:39)
[2018-10-15] MEDS ORDERED: Divalproex 250 mg ER (ONCE DAILY formulation) PO STA (01:58)
[2018-10-15] MEDS: Magnesium Sulfate 2 gm/50 ml 2 GM/50 ML BAG IVPB SCH (03:00)
[2018-10-15] MEDS: Insulin Lispro (humaLOG) LOW Coverage SC SCH ×4 (08:27→22:11)
[2018-10-15 08:32] LABS: BASO # 0.01 K/mm3 (0.0-2.0); BASO % 0.1 % (0.0-3.0); EOS # 0.1 (0.0-0.7); EOS % 1.1 % (1.5-5.0); HEMOGLOBIN 14.8 g/dL (12.0-16.0); LYMPH # 2.3 (1.2-3.4); LYMPH % 24.3 % (22.0-35.0); MEAN CELL VOLUME 87.6 fl (80.0-105.0); MEAN CORPUSCULAR HEMOGLOBIN 31.1 pg (25.0-35.0); MEAN CORPUSCULAR HGB CONC 35.5 g/dl (31.0-37.0); MEAN PLATELET VOLUME 9.8 fl (7.0-11.0); MONO # 0.5 (0.1-0.6); MONO % 5.2 % (1.0-6.0); RBC 4.76 10^6/uL (3.5-6.1); RED CELL DISTRIBUTION WIDTH 12.3 % (11.5-14.5); WHITE BLOOD COUNT 9.6 10^3/uL (4.5-11.0)
[2018-10-15 08:57] LABS: TROPONIN I < 0.01 ng/mL
[2018-10-15 08:58] LABS: ALT/SGPT 13 U/L (7-56); AST/SGOT 26 U/L (14-36); BLOOD UREA NITROGEN 16 mg/dL (7-21); CALCIUM 9.7 mg/dL (8.4-10.5); GFR NON-AFRICAN AMERICAN > 60
--- NOTE | 2018-10-15 09:02 | CARD ---
APPROVED REPORT Date of service: 10/14/2018 EKG Measurement Heart [id number] <Conclusion> Marked sinus bradycardia Septal infarct, age undetermined Abnormal ECG
[2018-10-15 10:00] LABS: ALB/GLOB RATIO 1.5 (1.1-1.8); ALBUMIN 4.4 g/dL (3.0-4.8)
[2018-10-15] MEDS ORDERED: Potassium Chloride 20 mEq ER Tab PO ONE ×4 (10:14→15:15)
[2018-10-15] MEDS ORDERED: Magnesium Sulfate 2 gm/50 ml 2 GM/50 ML BAG IVPB ONE ×2 (10:15→15:15)
--- NOTE | 2018-10-15 11:52 | RAD ---
Date of service: 10/14/2018 HISTORY: psych eval COMPARISON: 09/30/2018 FINDINGS: LUNGS: No active pulmonary disease. PLEURA: No significant pleural effusion identified, no pneumothorax apparent. CARDIOVASCULAR: No atherosclerotic calcification present No radiographic findings to suggest acute or significant cardiovascular disease. OSSEOUS STRUCTURES: No significant abnormalities. VISUALIZED UPPER ABDOMEN: Normal. OTHER FINDINGS: None. IMPRESSION: No active disease. No significant interval change compared to the prior examination(s).
[2018-10-15 14:43] LABS: ALB/GLOB RATIO 1.4 (1.1-1.8); ALBUMIN 3.6 g/dL (3.0-4.8); ALT/SGPT 20 U/L (7-56); AST/SGOT 22 U/L (14-36); BLOOD UREA NITROGEN 15 mg/dL (7-21); CALCIUM 8.9 mg/dL (8.4-10.5); GFR NON-AFRICAN AMERICAN > 60
--- NOTE | 2018-10-15 15:21 | CP.PCM.PN ---
<Janine Cruz - Last Filed: 10/15/18 15:42> Subjective - Date & Time of Evaluation Date of Evaluation: 10/15/18 Time of Evaluation: 15:17 - Subjective Subjective: Janine Cruz PGY1 Medicine Progress Note: Pt was seen and examined this AM at bedside. Pt had no acute events overnight and was given SC insulin to help lower her sugar. Pt at this time is confused and not willing to cooperate with exam. Objective - Vital Signs/Intake and Output Vital Signs (last 24 hours): Temp Pulse Resp BP Pulse Ox 97.6 F 51 L 18 133/68 96 10/15/18 12:00 10/15/18 12:00 10/15/18 12:00 10/15/18 12:00 10/15/18 05:48 Intake and Output: 10/15/18 10/15/18 06:59 18:59 Intake Total 120 Output Total 0 Balance 120 - Medications Medications: Current Medications Aripiprazole (Abilify) 2.5 mg PO DAILY [facility] Aspirin (Ecotrin) 81 mg PO DAILY [facility] Last Admin: 10/15/18 10:44 Dose: 81 mg Chlorthalidone (Hygroton) 25 mg PO DAILY [facility] Clonazepam (Klonopin) 0.25 mg PO TID [facility]; Protocol Last Admin: 10/15/18 10:43 Dose: 0.25 mg Dextrose (Dextrose 50% Inj) 0 ml IV STAT PRN; Protocol PRN Reason: Hypoglycemia Protocol Divalproex Sodium (Depakote Er(Once Daily)) 250 mg PO HS [facility]; Protocol Famotidine (Pepcid) 40 mg PO DAILY [facility] Last Admin: 10/15/18 10:43 Dose: 40 mg Fluoxetine HCl (Prozac) 30 mg PO DAILY [facility] Last Admin: 10/15/18 10:49 Dose: 30 mg Dextrose (Dextrose 5% In Water 1000 Ml) 1,000 mls @ 0 mls/hr IV .Q0M PRN; Protocol PRN Reason: Hypoglycemia Protocol Sodium Chloride (Sodium Chloride 0.9%) 1,000 mls @ 100 mls/hr IV .Q10H [facility] Magnesium Sulfate (Magnesium Sulfate 2 Gm/50 Ml Water) 2 gm in 50 mls @ 50 mls/hr IVPB ONCE ONE Stop: 10/15/18 16:14 Insulin Human Lispro (Humalog Low) 0 units SC ACHS [facility]; Protocol Last Admin: 10/15/18 12:26 Dose: 1 unit Rosuvastatin Calcium [Crestor] 40 Mg ( Home Med) 40 mg PO DAILY [facility] Last Admin: 10/15/18 10:44 Dose: Not Given Potassium Chloride (K-Dur 20 Meq Er Tab) 20 meq PO HS ONE Stop: 10/15/18 15:16 Ramipril (Altace) 5 mg PO DAILY [facility] Last Admin: 10/15/18 10:43 Dose: 5 mg - Labs Labs: 10/15/18 08:25 10/15/18 14:15 - Constitutional Appears: Non-toxic, No Acute Distress - Head Exam Head Exam: ATRAUMATIC, NORMAL INSPECTION, NORMOCEPHALIC - Eye Exam Eye Exam: EOMI, Normal appearance, PERRL - Respiratory Exam Respiratory Exam: Clear to Ausculation Bilateral, NORMAL BREATHING PATTERN. absent: Accessory Muscle Use, Rales, Rhonchi, Wheezes, Respiratory Distress, Stridor - Cardiovascular Exam Cardiovascular Exam: Bradycardia, +S1, +S2. absent: Gallop, Rubs - GI/Abdominal Exam GI & Abdominal Exam: Guarding, Rigid, Soft, Normal Bowel Sounds. absent: Tenderness Additional comments: lower abdominal midline well healed surgical scar in her lower abdomen - Extremities Exam Extremities Exam: Full ROM, Normal Capillary Refill, Normal Inspection - Back Exam Back Exam: NORMAL INSPECTION. absent: CVA tenderness (L), CVA tenderness (R) - Neurological Exam Neurological Exam: Alert, Altered, Awake - Skin Skin Exam: Dry, Normal Color, Warm Assessment and Plan - Assessment and Plan (Free Text) Assessment: This is a 68 yo F with PMH of HTN, IDDM, HLD, Depression/anxiety, and Bipolar disorder who presented to [facility] [place] with complaint of worsening depression and anxiety for several days. We will replete lytes, prior to her psych admission. Plan: 1) Depression/anxiety -Psych consulted, recs appreciated 2) Electrolyte Derangements -HypoNa 127, HypoK 3.7, HypoMg 1.8, HypoCl 87 -suspect 2/2 poor PO intake, as patient also appears dry, low chloride, and BUN/Cr is 20/0.7 -urine electrolytes, Cr, urea, and urine/serum osms ordered, will f/u -after obtaining urine, will start on NS @ 100/hr -Mag and K repletion ordered (PO and IV K, IV Mag), will follow up on AM labs and replete further as needed 3) Bradycardia - suspect 2/2 hypoK and hypoMg - sinus zoë on EKG, but hemodynamically stable, and no cardiac complaints - trops (-) x2 - admit to remote telemetry for monitoring - holding home metoprolol 4) DM - Pt started on HHD - Also started on low ISS 5) HTN -continue Ramipril, holding Metoprolol due to bradycardia 6) HLD -On crestor, non-formulary, so will switch to equivalent Lipitor dosing for this admission, can resume Crestor after discharge Ppx: continue home pepcid for GI, SCDs for DVT Dispo: Remote telemetry, pending psych unit after medical issues resolved Seen, reviewed, and discussed with attending, Dr. Jaden Cruz, PGY1 <Liliana Stanley - Last Filed: 10/15/18 16:01> Objective - Vital Signs/Intake and Output Vital Signs (last 24 hours): Temp Pulse Resp BP Pulse Ox 97.6 F 51 L 18 133/68 96 10/15/18 12:00 10/15/18 12:00 10/15/18 12:00 10/15/18 12:00 10/15/18 05:48 Intake and Output: 10/15/18 10/15/18 06:59 18:59 Intake Total 120 Output Total 0 Balance 120 - Medications Medications: Current Medications Aripiprazole (Abilify) 2.5 mg PO DAILY [facility] Aspirin (Ecotrin) 81 mg PO DAILY [facility] Last Admin: 10/15/18 10:44 Dose: 81 mg Chlorthalidone (Hygroton) 25 mg PO DAILY [facility] Clonazepam (Klonopin) 0.25 mg PO TID [facility]; Protocol Dextrose (Dextrose 50% Inj) 0 ml IV STAT PRN; Protocol PRN Reason: Hypoglycemia Protocol Divalproex Sodium (Depakote Er(Once Daily)) 250 mg PO HS [facility]; Protocol Famotidine (Pepcid) 40 mg PO DAILY [facility] Last Admin: 10/15/18 10:43 Dose: 40 mg Fluoxetine HCl (Prozac) 30 mg PO DAILY [facility] Last Admin: 10/15/18 10:49 Dose: 30 mg Dextrose (Dextrose 5% In Water 1000 Ml) 1,000 mls @ 0 mls/hr IV .Q0M PRN; Protocol PRN Reason: Hypoglycemia Protocol Sodium Chloride (Sodium Chloride 0.9%) 1,000 mls @ 100 mls/hr IV .Q10H [facility] Insulin Human Lispro (Humalog Low) 0 units SC ACHS [facility]; Protocol Last Admin: 10/15/18 12:26 Dose: 1 unit Rosuvastatin Calcium [Crestor] 40 Mg ( Home Med) 40 mg PO DAILY [facility] Last Admin: 10/15/18 10:44 Dose: Not Given Ramipril (Altace) 5 mg PO DAILY [facility] Last Admin: 10/15/18 10:43 Dose: 5 mg - Labs Labs: 10/15/18 08:25 10/15/18 14:15 Attending/Attestation - Attestation I have personally seen and examined this patient.: Yes I have fully participated in the care of the patient.: Yes I have reviewed all pertinent clinical information, including history, physical exam and plan: Yes Notes (Text): 10/15/18 15:57 68 year old female with past medical history of hypertension, diabetes, depression, anxiety and bipolar who presented with complaint of worsening d epression and anxiety. She was admitted to medicine for electrolyte imbalances (hyponatremia/hypokalemia/hypomagnesemia). She admits to poor po intake. Review of medications also reveal chlorthalidone which will be on hold for now. Start iv fluid and follow up repeat sodium. Potassium/magnesium were repleted. Patient was also noted to have bradycardia and metoprolol is on hold. Recent TSH was normal. Psychiatry evaluation was requested as patient may benefit from inpatient psychiatric admission. Liliana Stanley MD Hospitalist.
--- NOTE | 2018-10-15 16:00 | CON ---
DATE OF CONSULTATION: 10/15/2018 HISTORY OF PRESENT ILLNESS: In short, the patient is a 68-year-old female with a reported history of diabetes, hypertension, also history of recent fall. The patient also has history of bipolar disorder and multiple psychiatric admissions in the past, most recent was here in [place]. The patient was discharged from the psychiatric inpatient unit on 09/13/2018. The patient currently under care of Dr. Fernandez at [facility]. The patient was brought in yesterday to the emergency room for psychiatric evaluation and medication adjustment and possible psychiatric admission, but unfortunately during the during the assessment, the patient was found that she has electrolyte imbalance, sodium was 129 and potassium 3.0. The patient required medical admission. 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 The patient presented to be tearful. The patient reported that she was not doing well. The patient said initially after discharge from the psychiatric inpatient unit in 08/2018 she was doing fine. The patient fell and hit her back. As a result, the patient became more depressed, was confused about her medications. The patient was recently started on Wellbutrin, but as per family in the emergency room, the patient reported that she was not doing well. The patient currently lives with her [id number] as well as her son and has episodes of confusion as well as depression. The patient was anxious, was not able to stay alone. The patient also was not taking medication as it was prescribed. In the emergency room, the patient said that she was feeling very depressed and anxious and based on report of Dr. Fernandez, who is outpatient provider for the patient, recommended psych admission during the patient's visit. Going back to the patient's presentation, in regard to the medication, the patient wants to be resumed on Abilify, this teletypewriter installer will start 2.5 mg daily. The patient reported that she was on Prozac and the dose was recently increased to 40 mg, but the patient wants to decrease the dose to 30 mg. The patient was on Klonopin 0.25 mg at the nighttime, medical team started three times a day as needed, the patient is happy about that, and the patient is on Depakote extended-release 250 mg at the nighttime. This teletypewriter installer will discontinue Wellbutrin for the patient. VITAL SIGNS: Reviewed. Temperature 98.8, pulse of 49, blood pressure 146/70, respirations 19, oxygen saturation is 96. MEDICATIONS: Reviewed. Abilify 2.5 mg daily, aspirin, Klonopin 0.25 mg three times a day, dextrose, Depakote extended-release 250 mg at the nighttime, Prozac 30 mg daily, Humalog. LABORATORY DATA: Labs reviewed, most recent was from today. Chemistry reviewed. Sodium is a little bit better at 131. Potassium is 3.2. MENTAL STATUS EXAMINATION: The patient presented to be alert, oriented, anxious, tearful affect. Mood described as depressed and anxious. Affect was mood congruent. Thought process circumstantial. Thought content, the patient denied visual, auditory, tactile hallucinations. Denied paranoid ideation. The patient reported feeling of hopelessness and helplessness. Insight and judgment seems to be fair. Impulses are well controlled. IMPRESSION: As per history, the patient has bipolar disorder, most recent episode depressed, severe, no psychosis. Rule out mood disorder due to general medical condition. The patient has electrolyte imbalance. PLAN: We will continue current management. Continue current medication. Abilify was resumed. Klonopin was started by medical team. Wellbutrin will be discontinued. Depakote 250 mg at the nighttime. We will follow up and advise accordingly. Thank you very much for letting me participate in the care of your patient. Most likely the patient needs further evaluation and stabilization into the psychiatric inpatient unit, but we will follow up and advise accordingly Michelle Montiel MD MTDSiri
[2018-10-15] MEDS: Sodium Chloride 0.9% 1,000 ML IV SCH (16:31)
[2018-10-15] MEDS: Divalproex 250 mg ER (ONCE DAILY formulation) PO SCH (21:31)
[2018-10-15] MEDS ORDERED: Divalproex 250 mg ER (ONCE DAILY formulation) PO SCH (22:00)
[2018-10-16] MEDS: Sodium Chloride 0.9% 1,000 ML IV SCH (01:00)
[2018-10-16 07:40] LABS: EOS # 0.1 (0.0-0.7); EOS % 1.5 % (1.5-5.0); HEMOGLOBIN 12.8 g/dL (12.0-16.0); LYMPH % 25.1 % (22.0-35.0); MEAN CELL VOLUME 87.7 fl (80.0-105.0); MEAN CORPUSCULAR HEMOGLOBIN 30.8 pg (25.0-35.0); MEAN CORPUSCULAR HGB CONC 35.1 g/dl (31.0-37.0); MEAN PLATELET VOLUME 9.7 fl (7.0-11.0); MONO # 0.4 (0.1-0.6); MONO % 4.9 % (1.0-6.0); RBC 4.16 10^6/uL (3.5-6.1); RED CELL DISTRIBUTION WIDTH 12.4 % (11.5-14.5); WHITE BLOOD COUNT 7.8 10^3/uL (4.5-11.0)
[2018-10-16] MEDS: Insulin Lispro (humaLOG) LOW Coverage SC SCH ×4 (07:43→22:00)
[2018-10-16 08:23] LABS: ALB/GLOB RATIO 1.3 (1.1-1.8); ALBUMIN 3.5 g/dL (3.0-4.8); ALT/SGPT 10 U/L (7-56); AST/SGOT 18 U/L (14-36); BLOOD UREA NITROGEN 17 mg/dL (7-21); CALCIUM 8.6 mg/dL (8.4-10.5); GFR NON-AFRICAN AMERICAN > 60
[2018-10-16] MEDS ORDERED: Magnesium Sulfate 2 gm/50 ml 2 GM/50 ML BAG IVPB ONE (08:40)
--- NOTE | 2018-10-16 10:33 | CP.PCM.PN ---
<Janine Cruz - Last Filed: 10/16/18 13:41> Subjective - Date & Time of Evaluation Date of Evaluation: 10/16/18 Time of Evaluation: 09:00 - Subjective Subjective: Janine Cruz, PGY1 Medicine Progress Note: Pt was seen and examined this AM at bedside. Pt had no acute events overnights. Pt states that she only takes aspirn and not plavix. She also denies having any acute complaints. She states that she was in the area visiting a friend when she found herself to be ill and was brought here. Pt is originally from [place]. Pt states that she has had the ulcer on her foot for a long time, and has not noticed any recent change. Objective - Vital Signs/Intake and Output Vital Signs (last 24 hours): Temp Pulse Resp BP Pulse Ox 97.5 F L 78 20 140/78 96 10/16/18 06:00 10/16/18 06:00 10/16/18 06:00 10/16/18 09:13 10/16/18 06:00 Intake and Output: 10/16/18 10/16/18 06:59 18:59 Intake Total 1960 Balance 1960 - Medications Medications: Current Medications Acetaminophen (Tylenol 325mg Tab) 650 mg PO Q6H PRN PRN Reason: Pain, Mild (1-3) Aripiprazole (Abilify) 2.5 mg PO DAILY [facility] Last Admin: 10/16/18 09:12 Dose: 2.5 mg Aspirin (Ecotrin) 81 mg PO DAILY [facility] Last Admin: 10/16/18 09:06 Dose: 81 mg Chlorthalidone (Hygroton) 25 mg PO DAILY [facility] Clonazepam (Klonopin) 0.25 mg PO TID [facility]; Protocol Last Admin: 10/16/18 09:06 Dose: 0.25 mg Dextrose (Dextrose 50% Inj) 0 ml IV STAT PRN; Protocol PRN Reason: Hypoglycemia Protocol Divalproex Sodium (Depakote Er(Once Daily)) 250 mg PO HS [facility]; Protocol Last Admin: 10/15/18 21:31 Dose: 250 mg Famotidine (Pepcid) 40 mg PO DAILY [facility] Last Admin: 10/16/18 09:12 Dose: 40 mg Fluoxetine HCl (Prozac) 30 mg PO DAILY [facility] Last Admin: 10/16/18 09:06 Dose: 30 mg Dextrose (Dextrose 5% In Water 1000 Ml) 1,000 mls @ 0 mls/hr IV .Q0M PRN; Protocol PRN Reason: Hypoglycemia Protocol Sodium Chloride (Sodium Chloride 0.9%) 1,000 mls @ 100 mls/hr IV .Q10H [facility] Last Admin: 10/16/18 01:00 Dose: 100 mls/hr Magnesium Sulfate (Magnesium Sulfate 2 Gm/50 Ml Water) 2 gm in 50 mls @ 25 mls/hr IVPB ONCE ONE Stop: 10/16/18 10:39 Last Admin: 10/16/18 09:06 Dose: 25 mls/hr Insulin Human Lispro (Humalog Low) 0 units SC ACHS [facility]; Protocol Last Admin: 10/16/18 07:43 Dose: Not Given Rosuvastatin Calcium [Crestor] 40 Mg ( Home Med) 40 mg PO DAILY [facility] Last Admin: 10/15/18 10:44 Dose: Not Given Ramipril (Altace) 5 mg PO DAILY [facility] Last Admin: 10/16/18 09:13 Dose: 5 mg - Labs Labs: 10/16/18 07:00 10/16/18 07:00 - Constitutional Appears: Non-toxic, No Acute Distress - Head Exam Head Exam: ATRAUMATIC, NORMAL INSPECTION, NORMOCEPHALIC - Eye Exam Eye Exam: EOMI, Normal appearance, PERRL - Respiratory Exam Respiratory Exam: Clear to Ausculation Bilateral, NORMAL BREATHING PATTERN. absent: Accessory Muscle Use, Rales, Rhonchi, Wheezes, Respiratory Distress, Stridor - Cardiovascular Exam Cardiovascular Exam: Bradycardia, +S1, +S2. absent: Gallop, Rubs - GI/Abdominal Exam GI & Abdominal Exam: Guarding, Rigid, Soft, Normal Bowel Sounds. absent: Ten derness Additional comments: lower abdominal midline well healed surgical scar in her lower abdomen - Extremities Exam Extremities Exam: Full ROM, Normal Capillary Refill, Normal Inspection - Back Exam Back Exam: NORMAL INSPECTION. absent: CVA tenderness (L), CVA tenderness (R) - Neurological Exam Neurological Exam: Alert, Awake, Oriented x 3 - Skin Skin Exam: Dry, Normal Color, Warm Assessment and Plan - Assessment and Plan (Free Text) Assessment: This is a 68 yo F with PMH of HTN, IDDM, HLD, Depression/anxiety, and Bipolar disorder who presented to [facility] with complaint of worsening depression and anxiety for several days. Her lytes are now normal, But had bedbugs and will be in isolation for the next 24 hours. Plan: 1) Depression/anxiety - Psych consulted, recs appreciated 2) Electrolyte Derangements - HypoNa 131, HypoK 3.9, HypoMg 1.5, HypoCl 95 - Mag is being repleted again today - suspect 2/2 poor PO intake, BUN/Cr 17/.7 - Mag and K repletion ordered (PO and IV K, IV Mag), will follow up on AM labs and replete further as needed 3) Bradycardia - suspect 2/2 hypoK and hypoMg - sinus zoë on EKG, but hemodynamically stable, and no cardiac complaints - trops (-) x2 - holding home metoprolol 4) DM - Pt started on HHD - Also started on low ISS 5) HTN -continue Ramipril, holding Metoprolol due to bradycardia 6) HLD -On crestor, non-formulary, so will switch to equivalent Lipitor dosing for this admission, can resume Crestor after discharge Ppx: continue home pepcid for GI, SCDs for DVT Dispo: Remote telemetry, pending psych unit after 24 hour isolation for bed bugs is over. Pt will be getting physical therapy on the psych floor as currently the pt is still under isolation. Seen, reviewed, and discussed with attending, Dr. Jaden Cruz, PGY1 <Liliana Stanley - Last Filed: 10/16/18 14:02> Objective - Vital Signs/Intake and Output Vital Signs (last 24 hours): Temp Pulse Resp BP Pulse Ox 98.3 F 55 L 18 134/83 96 10/16/18 11:47 10/16/18 11:47 10/16/18 11:47 10/16/18 11:47 10/16/18 06:00 Intake and Output: 10/16/18 10/16/18 06:59 18:59 Intake Total 1960 Balance 1960 - Medications Medications: Current Medications Acetaminophen (Tylenol 325mg Tab) 650 mg PO Q6H PRN PRN Reason: Pain, Mild (1-3) Last Admin: 10/16/18 11:04 Dose: 650 mg Aripiprazole (Abilify) 2.5 mg PO DAILY [facility] Last Admin: 10/16/18 09:12 Dose: 2.5 mg Aspirin (Ecotrin) 81 mg PO DAILY [facility] Last Admin: 10/16/18 09:06 Dose: 81 mg Chlorthalidone (Hygroton) 25 mg PO DAILY [facility] Clonazepam (Klonopin) 0.25 mg PO TID [facility]; Protocol Last Admin: 10/16/18 09:06 Dose: 0.25 mg Dextrose (Dextrose 50% Inj) 0 ml IV STAT PRN; Protocol PRN Reason: Hypoglycemia Protocol Divalproex Sodium (Depakote Er(Once Daily)) 250 mg PO HS [facility]; Protocol Last Admin: 10/15/18 21:31 Dose: 250 mg Famotidine (Pepcid) 40 mg PO DAILY [facility] Last Admin: 10/16/18 09:12 Dose: 40 mg Fluoxetine HCl (Prozac) 30 mg PO DAILY [facility] Last Admin: 10/16/18 09:06 Dose: 30 mg Dextrose (Dextrose 5% In Water 1000 Ml) 1,000 mls @ 0 mls/hr IV .Q0M PRN; Protocol PRN Reason: Hypoglycemia Protocol Insulin Human Lispro (Humalog Low) 0 units SC ACHS [facility]; Protocol Last Admin: 10/16/18 12:00 Dose: 2 unit Rosuvastatin Calcium [Crestor] 40 Mg ( Home Med) 40 mg PO DAILY [facility] Last Admin: 10/16/18 10:48 Dose: Not Given Ramipril (Altace) 5 mg PO DAILY [facility] Last Admin: 10/16/18 09:13 Dose: 5 mg - Labs Labs: 10/16/18 07:00 10/16/18 07:00 Attending/Attestation - Attestation I have personally seen and examined this patient.: Yes I have fully participated in the care of the patient.: Yes I have reviewed all pertinent clinical information, including history, physical exam and plan: Yes Notes (Text): 10/16/18 13:55 68 year old female with past medical history of hypertension, diabetes, depression, anxiety and bipolar who presented with complaint of worsening depression and anxiety. She was admitted to medicine for electrolyte imbalances (hyponatremia/hypokalemia/hypomagnesemia). Chlorthalidone was held and she was started on iv fluids. Sodium has improved. Potassium improved after replenishment. Will replete and repeat magnesium. Patient was also noted to have bradycardia and metoprolol is on hold. Recent TSH was normal. Bed bug was found in room so patient is placed on isolation and transferred to other room after shower. Psychiatry evaluation was appreciated and plan is for transfer to inpatient psychiatric admission likely tomorrow once off isolation. Liliana Stanley MD Hospitalist.
[2018-10-16 11:48] VITALS: RESP 18
--- NOTE | 2018-10-16 18:30 | PN ---
DATE: 10/16/2018 SUBJECTIVE: The patient was seen and examined, discussed with nursing staff. As per nursing staff, the patient is on contact isolation right now for possible bed bugs. The patient was seen. The patient reported being upset over that fact. The patient reported that current medication is helping her. The patient obviously presented to be irritable and annoyed, did not want to have conversation. Discussed with the patient's primary team. The patient has bradycardia and electrolyte imbalance. After medical clearance, we will transfer the patient to the psychiatric inpatient unit because initially the patient came for psychiatric admission for depression, anxiety, and inability to function. Please see initial note for more detailed information. OBJECTIVE: VITAL SIGNS: Reviewed. Temperature 98.3, pulse 55, blood pressure 134/83, respirations 18, and oxygen saturation is 96%. MENTAL STATUS EXAMINATION: The patient presented to be depressed, irritable. No eye contact. Speech was underproductive, yes/no answers. Thought process concrete. Thought content, the patient denied visual, auditory, or tactile hallucinations. Denied paranoid ideation. The patient denied thoughts of harming herself or others, but reported inability to function and memory issues. Insight and judgment seems to be limited, but improving. Impulses are well controlled. MEDICATIONS: Reviewed. The patient is on Tylenol, Abilify 2.5 mg daily started, aspirin, Klonopin 0.25 mg three times a day schedule, dextrose, Depakote 250 mg at the nighttime, Pepcid, Prozac 30 mg daily, Humalog, and Altace. LABORATORY DATA: Labs reviewed. Most recent was from today. Sodium still low 131. Urinalysis showed leukocyte esterase and epithelial cells 10 to 12. Toxicology reviewed, negative for any benzodiazepines. IMPRESSION: As per history, the patient has bipolar disorder, most recent episode mixed, severe, no psychosis. PLAN: The patient needs to be transferred to the psychiatric inpatient unit after medical clearance for further evaluation and stabilization and medication management. Please see initial note for more detailed information. Discussed with the medical team and nursing staff. Michelle Montiel MD AUDR[facility]
[2018-10-16] MEDS: Divalproex 250 mg ER (ONCE DAILY formulation) PO SCH (22:47)
[2018-10-17 05:57] VITALS: TEMP 97.9; O2SAT 98
[2018-10-17] MEDS: Insulin Lispro (humaLOG) LOW Coverage SC SCH ×2 (07:30→12:20)
[2018-10-17 09:21] VITALS: BP 168/70
--- NOTE | 2018-10-17 10:44 | PN ---
DATE: 10/17/2018 SUBJECTIVE: The patient is a 68-year-old female. The patient has history of bipolar disorder. The patient was admitted on the medical side for electrolyte imbalance and bradycardia. Initially, the patient came to the hospital looking for psychiatric admission because the patient was not doing well, was forgetful, depressed, anxious, was not able to function. The patient was seen over the weekend. Over the weekend, it was found that the patient had bed bugs and that is why the patient was started on isolation. Please see over the weekend note for more detailed information. The patient was seen today. The patient presented to be tearful, said that she does not feel well. The patient is depressed about the bed bugs. The patient had bradycardia blood pressure is elevated at 168/70, respirations 18, oxygen saturation is 98. MEDICATIONS: Reviewed. Tylenol, Abilify was started 2.5 mg, aspirin, Klonopin 0.5 mg three times a day. The patient is also on Depakote extended release, Pepcid, Prozac 30 mg daily, Humalog. LABORATORY DATA: Reviewed. Most recent was from today. Toxicology reviewed. MENTAL STATUS EXAMINATION: As this continuity writer described above. The patient presented to be tearful, depressed. Intermittent eye contact. Speech was underproductive. She has no answers. Affect was tearful, mood congruent. Thought process seems to be concrete. Thought content, the patient reported that she feels hopeless. Denied any thoughts of harming herself or others. Denied hearing voices, denied seeing things. Insight and judgment seems to be limited. Impulses are well controlled. IMPRESSION: As per history, bipolar disorder, anxiety disorder. PLAN: Continue current management. Continue current medication. The patient most likely would need to have psychiatric transfer. Meanwhile, the patient is on contact isolation. This continuity writer reviewed and confirm medication over the weekend. We will follow up and advise accordingly. Thank you very much for letting me participate in care of your patient. Michelle Montiel MD
[2018-10-17 12:29] VITALS: PULSE 50
--- NOTE | 2018-10-17 13:06 | CP.PCM.APN ---
Subjective - Date & Time of Evaluation Date of Evaluation: 10/17/18 Time of Evaluation: 11:00 - Subjective Subjective: pt seenand examined at bedside, pt states she feels down Review of Systems - Review of Systems All systems: reviewed and no additional remarkable complaints except Objective - Vital Signs/Intake and Output Vital Signs (last 24 hours): Temp Pulse Resp BP Pulse Ox 97.9 F 50 L 18 168/70 H 98 10/17/18 05:56 10/17/18 10:00 10/17/18 05:56 10/17/18 09:12 10/17/18 05:56 Intake and Output: 10/17/18 10/17/18 06:59 18:59 Intake Total 3900 Balance 3900 - Medications Medications: Current Medications Acetaminophen (Tylenol 325mg Tab) 650 mg PO Q6H PRN PRN Reason: Pain, Mild (1-3) Last Admin: 10/16/18 22:46 Dose: 650 mg Aripiprazole (Abilify) 2.5 mg PO DAILY [facility] Last Admin: 10/17/18 09:12 Dose: 2.5 mg Aspirin (Ecotrin) 81 mg PO DAILY [facility] Last Admin: 10/17/18 09:12 Dose: 81 mg Chlorthalidone (Hygroton) 25 mg PO DAILY [facility] Clonazepam (Klonopin) 0.25 mg PO TID [facility]; Protocol Last Admin: 10/17/18 09:11 Dose: 0.25 mg Dextrose (Dextrose 50% Inj) 0 ml IV STAT PRN; Protocol PRN Reason: Hypoglycemia Protocol Divalproex Sodium (Depakote Er(Once Daily)) 250 mg PO HS [facility]; Protocol Last Admin: 10/16/18 22:47 Dose: 250 mg Famotidine (Pepcid) 40 mg PO DAILY [facility] Last Admin: 10/17/18 09:12 Dose: 40 mg Fluoxetine HCl (Prozac) 30 mg PO DAILY [facility] Last Admin: 10/17/18 09:11 Dose: 30 mg Dextrose (Dextrose 5% In Water 1000 Ml) 1,000 mls @ 0 mls/hr IV .Q0M PRN; Protocol PRN Reason: Hypoglycemia Protocol Insulin Human Lispro (Humalog Low) 0 units SC ACHS [facility]; Protocol Last Admin: 10/17/18 07:30 Dose: Not Given Rosuvastatin Calcium [Crestor] 40 Mg ( Home Med) 40 mg PO DAILY [facility] Last Admin: 10/17/18 09:13 Dose: Not Given Ramipril (Altace) 10 mg PO DAILY [facility] - Labs Labs: 10/16/18 07:00 10/16/18 07:00 - Constitutional Appears: No Acute Distress - Neurological Exam Neurological Exam: Alert, Oriented x3 - Psychiatric Exam Psychiatric exam: Depressed, Flat Affect - Skin Skin Exam: Dry, Intact Assessment and Plan - Assessment and Plan (Free Text) Plan: 68 yr old with pmh sig for bipolar and depression admitted with electrolyte abnormality with NO of 127 now resolving , bradycardia and depression also found to have bedbugs. pt with psychiatric consultation with Dr Martinez. Pt isolated for bedbugs. Per discussion with resident, plan for transfer to psych for mgmt of depression and optimization of medical therapy. will follow up on transfer. BPCI/TIC - BPCIA/TIC Educated pt/family on BPCIA/CIR/Med to Bed Programs: N/A Flyers given, including [facility] Beneficiary letter: N/A Pt/family verbalized understanding & agreed to program: N/A
--- NOTE | 2018-10-17 14:06 | CP.PCM.DIS ---
<Janine Cruz - Last Filed: 10/17/18 20:17> Provider - Provider Date of Admission: 10/14/18 22:15 Attending physician: Lisa Mares MD Primary care physician: NO FAMILY PROVIDER Consults: 10/14/18 22:27 Physician Consult Routine Comment: depression Consulting Provider: Michelle Montiel Consulting Physician: Michelle Montiel Reason for Consult: depression 10/15/18 01:59 Social Work Referral Routine Comment: admission assessment protocol Physician Instructions: Reason For Exam: kathie score 12 Time Spent in preparation of Discharge (in minutes): 45 Diagnosis - Discharge Diagnosis (1) Hypokalemia Status: Acute (2) Hyponatremia Status: Acute (3) JAYLIN (generalized anxiety disorder) Status: Chronic Priority: High Hospital Course - Lab Results Lab Results: Micro Results 10/14/18 21:30 Urine,Clean Catch Urine Culture - Final <10,000 CFU/ML. MULTIPLE SPECIES. PROBABLE CONTAMINATION. Most Recent Lab Values WBC 7.8 10^3/uL (4.5-11.0) 10/16/18 07:00 RBC 4.16 10^6/uL (3.5-6.1) 10/16/18 07:00 Hgb 12.8 g/dL (12.0-16.0) D 10/16/18 07:00 Hct 36.5 % (36.0-48.0) 10/16/18 07:00 MCV 87.7 fl (80.0-105.0) 10/16/18 07:00 MCH 30.8 pg (25.0-35.0) 10/16/18 07:00 MCHC 35.1 g/dl (31.0-37.0) 10/16/18 07:00 RDW 12.4 % (11.5-14.5) 10/16/18 07:00 Plt Count 187 10^3/uL (120.0-450.0) 10/16/18 07:00 MPV 9.7 fl (7.0-11.0) 10/16/18 07:00 Neut % (Auto) 68.5 % (50.0-68.0) H 10/16/18 07:00 Lymph % (Auto) 25.1 % (22.0-35.0) 10/16/18 07:00 Caldwell % (Auto) 4.9 % (1.0-6.0) 10/16/18 07:00 Eos % (Auto) 1.5 % (1.5-5.0) 10/16/18 07:00 Baso % (Auto) 0.0 % (0.0-3.0) 10/16/18 07:00 Lymph # (Auto) 2.0 (1.2-3.4) 10/16/18 07:00 Caldwell # (Auto) 0.4 (0.1-0.6) 10/16/18 07:00 Eos # (Auto) 0.1 (0.0-0.7) 10/16/18 07:00 Baso # (Auto) 0.00 K/mm3 (0.0-2.0) 10/16/18 07:00 Absolute Neuts (auto) 5.34 (1.4-6.5) 10/16/18 07:00 Sodium 131 mmol/L (132-148) L 10/16/18 07:00 Potassium 3.9 mmol/L (3.6-5.0) 10/16/18 07:00 Chloride 95 mmol/L (98-107) L 10/16/18 07:00 Carbon Dioxide 28 mmol/L (21-33) 10/16/18 07:00 Anion Gap 12 (10-20) 10/16/18 07:00 BUN 17 mg/dL (7-21) 10/16/18 07:00 Creatinine 0.7 mg/dl (0.7-1.2) 10/16/18 07:00 Est GFR ( Amer) > 60 10/16/18 07:00 Est GFR (Non-Af Amer) > 60 10/16/18 07:00 POC Glucose (mg/dL) 193 mg/dL (65-110) H 10/16/18 21:11 Random Glucose 138 mg/dL (70-110) H 10/16/18 07:00 Serum Osmolality 265 mosm/kg (272-300) L 10/14/18 20:25 Calcium 8.6 mg/dL (8.4-10.5) 10/16/18 07:00 Phosphorus 3.1 mg/dL (2.5-4.5) 10/15/18 08:25 Magnesium 1.5 mg/dL (1.7-2.2) L 10/16/18 07:00 Total Bilirubin 0.7 mg/dL (0.2-1.3) 10/16/18 07:00 AST 18 U/L (14-36) 10/16/18 07:00 ALT 10 U/L (7-56) 10/16/18 07:00 Alkaline Phosphatase 47 U/L (38-126) 10/16/18 07:00 Troponin I < 0.01 ng/mL 10/15/18 08:25 Total Protein 6.1 g/dL (5.8-8.3) 10/16/18 07:00 Albumin 3.5 g/dL (3.0-4.8) 10/16/18 07:00 Globulin 2.6 gm/dL 10/16/18 07:00 Albumin/Globulin Ratio 1.3 (1.1-1.8) 10/16/18 07:00 Urine Color yellow (YELLOW) 10/14/18 20:25 Urine Appearance Clear (CLEAR) 10/14/18 20:25 Urine pH 6.5 (4.7-8.0) 10/14/18 20:25 Ur Specific [place] 1.020 (1.005-1.035) 10/14/18 20:25 Urine Protein Negative mg/dL (<30 mg/dL) 10/14/18 20:25 Urine Glucose (UA) Negative mg/dL (NEGATIVE) 10/14/18 20:25 Urine Ketones Negative mg/dL (NEGATIVE) 10/14/18 20:25 Urine Blood Negative (NEGATIVE) 10/14/18 20:25 Urine Nitrate Negative (NEGATIVE) 10/14/18 20:25 Urine Bilirubin Negative (NEGATIVE) 10/14/18 20:25 Urine Urobilinogen 0.2 E.U./dL (<1 E.U./dL) 10/14/18 20:25 Ur Leukocyte Esterase Small Antonio/uL (NEGATIVE) H 10/14/18 20:25 Urine RBC TEST NOT PERFORMED 10/14/18 20:25 Urine WBC 2 - 5 /hpf (0-6) 10/14/18 20:25 Ur Epithelial Cells 10 - 12 /hpf (0-5) H 10/14/18 20:25 Urine Osmolality 533 mosm/kg (300-1000) 10/15/18 00:45 Ur Random Creatinine 94 mg/dL 10/15/18 00:45 Ur Random Sodium 44 meq/L 10/15/18 00:45 Ur Random Potassium 26.4 meq/L 10/15/18 00:45 Ur Random Urea Nitrogn 916 mg/dL 10/15/18 00:45 Urine Opiates Screen Negative (NEGATIVE) 10/14/18 20:25 Urine Methadone Screen Negative (NEGATIVE) 10/14/18 20:25 Ur Barbiturates Screen Negative (NEGATIVE) 10/14/18 20:25 Ur Phencyclidine Scrn Negative (NEGATIVE) 10/14/18 20:25 Ur Amphetamines Screen Negative (NEGATIVE) 10/14/18 20:25 U Benzodiazepines Scrn Negative (NEGATIVE) 10/14/18 20:25 U Oth Cocaine Metabols Negative (NEGATIVE) 10/14/18 20:25 U Cannabinoids Screen Negative (NEGATIVE) 10/14/18 20:25 Alcohol, Quantitative < 10 mg/dL (0-10) 10/14/18 20:25 - Hospital Course Hospital Course: Upon Admission: This is a 68 yo F with PMH of HTN, IDDM, HLD, Depression/anxiety, and Bipolar disorder who presented to [facility] with complaint of worsening depression and anxiety for several days. Reports saw her PMD (Dr. Hughes) last (9 days prior) and was told her labs were fine then, but in the last few days has been worse and is unable to pinpoint a reason why. Presented for psych admission, but was found to be hyponatremic to 129 and hypokalemic at 3.0, so PES recommened medical admission for correction of electrolytes prior to psych admission. Patient reports poor appetite today due to 1x NBNB emesis after eating a slice of pizza today, but states she had been eating otherwise and drinking fluids daily. Her son at bedside disagrees, reports that she has been eating and drinking less for the last several days, which he suspected was due to her depression. Both report compliance with medications. She denies acute symptoms, including chest pain, shortness of breath, emesis prior to today, diarrhea, fevers, chills, dysuria, hematuria, urinary frequency. Reports hx of DM neuropathy, but denies flair-ups. Recently treated for UTI from approx 2 weeks ago, but reports no further symptoms related to it. Denies A/V hallucinations, SI, HI. Of note in the ED, bradycardic on exam and on EKG to 48, but sinus rhythm and patient hemodynamically stable. Additionally, labs notable for hypomagnesemia of 1.2, in addition to abnormalities described above. BG well controlled, 112 on labs. Hospital Course: Pt was being managed for multiple electrolyte abnormalities. Pt was originally going to be admitted to psych but first the electrolyte abnormalities had to be addressed. Pt was noted to have hypomagnesemia, hyponatremia, hypokalemia which were likely related to a combination of poor PO intake and being compliant with her diuretic therapy. Pt was seen and stated that she would like to be taken to the psych unit so that she can be seen by the doctors there. She was noted to be crying and anxious on exam. Overnight the pt was noted to have bedbugs and was placed in isolation for 24 hours after her bath. Pt was given IVFs to replete the hyponatremia, Mag riders and PO K pills to help replete and correct the electrolyte abnormalities. Pt was noted to be bradycardic so pts b-yanna was held, as well the pts diuretic due to her underlying electrolyte abnormalities. Pt was eventually taken off of isolation and had appropriate repletion of electrolytes and was cleared for discharge to psych. Pt was informed of the plan for discharge to psych and the pt expressed understanding and agreement with the discharge plan. All of the pts questions and concerns were addressed prior to d/c. Pt informed to continue holding her diuretics and b-yanna. Discharge Exam - Head Exam Head Exam: ATRAUMATIC, NORMAL INSPECTION, NORMOCEPHALIC - Eye Exam Eye Exam: EOMI, Normal appearance, PERRL - Respiratory Exam Respiratory Exam: Clear to PA & Lateral, NORMAL BREATHING PATTERN, UNREMARKABLE. absent: Accessory Muscle Use, Rales, Rhonchi, Wheezes - Cardiovascular Exam Cardiovascular Exam: RRR, +S1, +S2. absent: Gallop, Rubs - GI/Abdominal Exam GI & Abdominal Exam: Normal Bowel Sounds, Soft, Unremarkable. absent: Distended, Firm, Rigid, Tenderness Additional comments: lower abdominal midline well healed surgical scar in her lower abdomen - Extremities Exam Extremities exam: normal capillary refill, normal inspection, pedal pulses present - Back Exam Back exam: NORMAL INSPECTION. absent: CVA tenderness (L), CVA tenderness (R) - Neurological Exam Neurological exam: Alert, Oriented x3 - Psychiatric Exam Psychiatric exam: Normal Affect, Normal Mood - Skin Skin Exam: Dry, Normal Color, Warm Discharge Plan - Follow Up Plan Condition: STABLE Disposition: DISCHARGE TO [facility] Instructions: Dehydration, Adult (DC), Hypokalemia (DC) Additional Instructions: Please follow up with your primary care doctor within one week of being discharged from [facility] for follow up. Please stop taking Chlorthalidone and Metoprolol, both medications are for blood pressure, until you can discuss these medications with your primary care doctor. Ramipril dosage is increased because some blood pressure meds are held. Prozac was decreased to 30mg daily Please take all other medications as prescribed. If your symptoms return, please seek emergency medical attention at the nearest ER immediately. Referrals: FAMILY PROVIDER,NO [Primary Care Provider] - <Lisa Mares - Last Filed: 10/18/18 15:48> Provider - Provider Date of Admission: 10/14/18 22:15 Attending physician: Lisa Mares MD Primary care physician: PIPO FAMILY PROVIDER Consults: 10/14/18 22:27 Physician Consult Routine Comment: depression Consulting Provider: Michelle Montiel Consulting Physician: Michelle Montiel Reason for Consult: depression 10/15/18 01:59 Social Work Referral Routine Comment: admission assessment protocol Physician Instructions: Reason For Exam: kathie score 12 Hospital Course - Lab Results Lab Results: Micro Results 10/14/18 21:30 Urine,Clean Catch Urine Culture - Final <10,000 CFU/ML. MULTIPLE SPECIES. PROBABLE CONTAMINATION. Most Recent Lab Values WBC 7.8 10^3/uL (4.5-11.0) 10/16/18 07:00 RBC 4.16 10^6/uL (3.5-6.1) 10/16/18 07:00 Hgb 12.8 g/dL (12.0-16.0) D 10/16/18 07:00 Hct 36.5 % (36.0-48.0) 10/16/18 07:00 MCV 87.7 fl (80.0-105.0) 10/16/18 07:00 MCH 30.8 pg (25.0-35.0) 10/16/18 07:00 MCHC 35.1 g/dl (31.0-37.0) 10/16/18 07:00 RDW 12.4 % (11.5-14.5) 10/16/18 07:00 Plt Count 187 10^3/uL (120.0-450.0) 10/16/18 07:00 MPV 9.7 fl (7.0-11.0) 10/16/18 07:00 Neut % (Auto) 68.5 % (50.0-68.0) H 10/16/18 07:00 Lymph % (Auto) 25.1 % (22.0-35.0) 10/16/18 07:00 [place]dwell % (Auto) 4.9 % (1.0-6.0) 10/16/18 07:00 Eos % (Auto) 1.5 % (1.5-5.0) 10/16/18 07:00 Baso % (Auto) 0.0 % (0.0-3.0) 10/16/18 07:00 Lymph # (Auto) 2.0 (1.2-3.4) 10/16/18 07:00 [place]dwell # (Auto) 0.4 (0.1-0.6) 10/16/18 07:00 Eos # (Auto) 0.1 (0.0-0.7) 10/16/18 07:00 Baso # (Auto) 0.00 K/mm3 (0.0-2.0) 10/16/18 07:00 Absolute Neuts (auto) 5.34 (1.4-6.5) 10/16/18 07:00 Sodium 131 mmol/L (132-148) L 10/16/18 07:00 Potassium 3.9 mmol/L (3.6-5.0) 10/16/18 07:00 Chloride 95 mmol/L (98-107) L 10/16/18 07:00 Carbon Dioxide 28 mmol/L (21-33) 10/16/18 07:00 Anion Gap 12 (10-20) 10/16/18 07:00 BUN 17 mg/dL (7-21) 10/16/18 07:00 Creatinine 0.7 mg/dl (0.7-1.2) 10/16/18 07:00 Est GFR ( Amer) > 60 10/16/18 07:00 Est GFR (Non-Af Amer) > 60 10/16/18 07:00 POC Glucose (mg/dL) 131 mg/dL (65-110) H 10/17/18 16:58 Random Glucose 138 mg/dL (70-110) H 10/16/18 07:00 Serum Osmolality 265 mosm/kg (272-300) L 10/14/18 20:25 Calcium 8.6 mg/dL (8.4-10.5) 10/16/18 07:00 Phosphorus 3.1 mg/dL (2.5-4.5) 10/15/18 08:25 Magnesium 1.5 mg/dL (1.7-2.2) L 10/16/18 07:00 Total Bilirubin 0.7 mg/dL (0.2-1.3) 10/16/18 07:00 AST 18 U/L (14-36) 10/16/18 07:00 ALT 10 U/L (7-56) 10/16/18 07:00 Alkaline Phosphatase 47 U/L (38-126) 10/16/18 07:00 Troponin I < 0.01 ng/mL 10/15/18 08:25 Total Protein 6.1 g/dL (5.8-8.3) 10/16/18 07:00 Albumin 3.5 g/dL (3.0-4.8) 10/16/18 07:00 Globulin 2.6 gm/dL 10/16/18 07:00 Albumin/Globulin Ratio 1.3 (1.1-1.8) 10/16/18 07:00 Urine Color yellow (YELLOW) 10/14/18 20:25 Urine Appearance Clear (CLEAR) 10/14/18 20:25 Urine pH 6.5 (4.7-8.0) 10/14/18 20:25 Ur Specific [place] 1.020 (1.005-1.035) 10/14/18 20:25 Urine Protein Negative mg/dL (<30 mg/dL) 10/14/18 20:25 Urine Glucose (UA) Negative mg/dL (NEGATIVE) 10/14/18 20:25 Urine Ketones Negative mg/dL (NEGATIVE) 10/14/18 20:25 Urine Blood Negative (NEGATIVE) 10/14/18 20:25 Urine Nitrate Negative (NEGATIVE) 10/14/18 20:25 Urine Bilirubin Negative (NEGATIVE) 10/14/18 20:25 Urine Urobilinogen 0.2 E.U./dL (<1 E.U./dL) 10/14/18 20:25 Ur Leukocyte Esterase Small Antonio/uL (NEGATIVE) H 10/14/18 20:25 Urine RBC TEST NOT PERFORMED 10/14/18 20:25 Urine WBC 2 - 5 /hpf (0-6) 10/14/18 20:25 Ur Epithelial Cells 10 - 12 /hpf (0-5) H 10/14/18 20:25 Urine Osmolality 533 mosm/kg (300-1000) 10/15/18 00:45 Ur Random Creatinine 94 mg/dL 10/15/18 00:45 Ur Random Sodium 44 meq/L 10/15/18 00:45 Ur Random Potassium 26.4 meq/L 10/15/18 00:45 Ur Random Urea Nitrogn 916 mg/dL 10/15/18 00:45 Urine Opiates Screen Negative (NEGATIVE) 10/14/18 20:25 Urine Methadone Screen Negative (NEGATIVE) 10/14/18 20:25 Ur Barbiturates Screen Negative (NEGATIVE) 10/14/18 20:25 Ur Phencyclidine Scrn Negative (NEGATIVE) 10/14/18 20:25 Ur Amphetamines Screen Negative (NEGATIVE) 10/14/18 20:25 U Benzodiazepines Scrn Negative (NEGATIVE) 10/14/18 20:25 U Oth Cocaine Metabols Negative (NEGATIVE) 10/14/18 20:25 U Cannabinoids Screen Negative (NEGATIVE) 10/14/18 20:25 Alcohol, Quantitative < 10 mg/dL (0-10) 10/14/18 20:25 Attending/Attestation - Attestation I have personally seen and examined this patient.: Yes I have fully participated in the care of the patient.: Yes I have reviewed all pertinent clinical information, including history, physical exam and plan: Yes Notes (Text): 10/18/18 15:41 Medical record note made by the resident after discussion with my direction and input after the patient was personally seen and examined by me. I have reviewed the chart and agree that the record accurately reflects by personal performance of the history, physical exam, data review, and medical decision-making, in the course for the patient. I have also personally directed the plan of care. 68 year old female with PMH of hypertension, diabetes, depression, anxiety and bipolar was admitted with complaint of worsening depression and anxiety. She was admitted to medicine for electrolyte imbalances (hypona tremia/hypokalemia/hypomagnesemia). Chlorthalidone was held and she was started on iv fluids. Sodium has improved. Potassium improved after replenishment. . Patient was also noted to have bradyc ardia and metoprolol is on hold. TSH level is normal. Ramipril dose has been increased to 10 mg PO daily. Psychiatry evaluation is appreciated and patient will be transferred to inpatient Psychiatry.
== END 2018-10-17 15:55 ==
LOC: ED 19:41 → ERH 22:15 → INTOOBSV 22:15 → ERH 10-15 00:15 → 2RSO 10-15 01:23 → UNDODISIN 10-15 13:20 → 2RNO 10-16 11:57
PROVIDERS: ADMIT Hospitalist; ATTEND Internal Medicine
DX: E87.1 Hypo-osmolality and hyponatremia (principal); F31.63 Bipolar disorder, current episode mixed, severe, without psychotic features; E87.6 Hypokalemia; E83.42 Hypomagnesemia; F41.1 Generalized anxiety disorder; I10 Essential (primary) hypertension; E78.5 Hyperlipidemia, unspecified; R00.1 Bradycardia, unspecified; E11.40 Type 2 diabetes mellitus with diabetic neuropathy, unspecified; Z79.84 Long term (current) use of oral hypoglycemic drugs; Z79.82 Long term (current) use of aspirin; Z86.73 Personal history of transient ischemic attack (TIA), and cerebral infarction without residual deficits; Z85.820 Personal history of malignant melanoma of skin; Z87.891 Personal history of nicotine dependence
CPT/HCPCS: 36415; 71045; 80053; 81001; 82570; 82948; 83735; 83930; 83935; 84100; 84133; 84300; 84484; 84540; 85025; 87086; 90791; 93005; 99283; G0378; G0480; J1885; J3480; J7030

== ENCOUNTER 2018-10-17 15:53 | Inpatient (IN) | payer MEDICARE, OTHER ==
[2018-10-17 16:39] VITALS: O2SAT 97
[2018-10-17 16:51] VITALS: BMI 35.2
[2018-10-17] MEDS ORDERED: Magnesium Hydroxide Susp 30 ml UD PO PRN (17:06)
--- NOTE | 2018-10-17 19:08 | PCM.BM ---
<Shilpi Dunlap - Last Filed: 10/17/18 19:05> Treatment Plan Problems - Problems identified on initial assessmt HOPELESS/HELPLESS Date Initiated: 10/17/18 Time Initiated: 19:00 Assessment reference: NA Status: Active Priority: 1 INEFFECTIVE INDV COPING Date Initiated: 10/17/18 Time Initiated: 19:00 Assessment reference: NA Status: Active Priority: 2 ALTERED SLEEP PATTERN Date Initiated: 10/17/18 Time Initiated: 19:00 Assessment reference: NA Status: Active Priority: 3 Treatment assets and liabiliti Patient Assests: cooperative, insightful, motivated, ADL independent, good support system, cognitively intact, strong nicholas Patient Liabilities: live alone - Milieu Protocol Maintain good personal hygiene: daily Encourage regular showers, daily Remind patient to perform daily oral care, daily Assist patient to perform ADL's Maintain personal safety: every shift Educate patient to report safety concerns to staff, every shift Monitor environment for contraband/sharps Medication safety: Monitor for expected outcome, potential side effects: every shift, Assess barriers to learning: every shift, Assess readiness for medication education: every shift Discharge/Continuing Care - Education Needs Education Needs: Patient Medication, Patient Diagnosis/Disease Process, Patient Coping Skills, Patient Community resources, Patient Activities of Daily Living, Patient Pain, Patient Nutrition, Patient Uses of Medical Equipment, Patient Health Practices/Safety, Patient Personal Hygiene/Grooming, Patient Aftercare Safety Plan - Discharge Discharge Criteria: Tolerates medication w/o severe side effects, Free of Suicidal thoughts, Free of agitation, Normal sleep pattern, Ability to care for self, Reduction of target symptoms Discharge to:: Home <Michelle Montiel - Last Filed: 10/18/18 13:49> - Diagnosis (1) Bipolar disorder Status: Chronic Interventions: 10/18/18 13:49 Psychoeducation Psychopharmacology/adjustment of medications as needed/ monitoring possible side effects Monitor blood level of mood stabilizers Evaluate pt on daily basis Compliance with medications and follow up appointments Suicide and homicide risk assessment and prevention, coping strategies, safety plan Relapse prevention Reduction of symptoms Improve functional status Family involvement As outpatient: cognitive behavioral therapy (2) JAYLIN (generalized anxiety disorder) Status: Chronic Interventions: 10/18/18 13:49 Psychoeducation Psychopharmacology/adjustment of medications as needed/ monitoring possible side effects Evaluate pt on daily basis Discussion of importance of being compliant with medications and follow up appointments Suicide and homicide risk assessment and prevention, coping strategies, safety plan Reduction of symptoms Relaxation techniques and breathing exercises Improve functional status Family involvement Cognitive behavioral therapy as outpatient <Agnes Morrison Y - Last Filed: 10/20/18 10:17> Family Contact Family involvement: Family/SO is involved Family contact: Patient agrees to contact, Telephone contact initiated by staff Family contact name: Andree Padilla([email or web address]) Family contacted how many times per week?: 2
[2018-10-17] MEDS: Alum-Mag Hydrox-Simethicone Susp (30 mL) PO PRN (19:34)
[2018-10-17] MEDS: Divalproex 250 mg ER (ONCE DAILY formulation) PO SCH (21:09)
[2018-10-17] MEDS: Insulin Lispro (humaLOG) LOW Coverage SC SCH (21:09)
[2018-10-18 08:27] LABS: HDL CHOLESTEROL 55 mg/dL (29-60)
[2018-10-18 08:38] LABS: LDL CHOLESTEROL 80 mg/dL (0-129)
[2018-10-18 08:47] LABS: FREE T4 1.79 ng/dL (0.78-2.19)
[2018-10-18] MEDS: Magnesium Oxide 400 mg Tab UD PO SCH ×2 (09:32→18:00)
[2018-10-18] MEDS: Insulin Lispro (humaLOG) LOW Coverage SC SCH ×4 (09:33→21:15)
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
[2018-10-18] MEDS: Divalproex 250 mg ER (ONCE DAILY formulation) PO SCH (21:14)
[2018-10-19] MEDS: Insulin Lispro (humaLOG) LOW Coverage SC SCH ×4 (08:00→22:39)
[2018-10-19] MEDS: Magnesium Oxide 400 mg Tab UD PO SCH ×2 (08:47→18:04)
--- NOTE | 2018-10-19 16:10 | PCM.PYCHPN ---
Psychiatric Progress Note - Psychiatric Progress Note Patient seen today, length of contact: 30min Patient Chief Complaint: "I am not good, I feel very anxious, I feel very-very depressed..." Problems Identified/Issues Discussed: Risk/benefits and alternatives of medications discussed, suicide/ homicide prevention, past psychiatric h/o, current psychiatric symptoms, medical problems, risk/benefits and alternatives of medications, medications compliance, coping strategies, substance abuse h/o, relapse prevention, importance of follow up with psychiatrist and therapist, discharge plan. Medical Problems: please see HPI Diagnostic Results: Lab Results 10/18/18 21:06: POC Glucose (mg/dL) 201 H 10/18/18 16:09: POC Glucose (mg/dL) 104 10/18/18 11:17: POC Glucose (mg/dL) 207 H 10/18/18 07:55: Triglycerides 223 H, Cholesterol 187, LDL Cholesterol Direct 80, HDL Cholesterol 55 10/18/18 07:55: Free T4 1.79, TSH 3rd Generation 3.76 10/18/18 07:55: RPR Nonreactive 10/18/18 07:26: POC Glucose (mg/dL) 153 H 10/17/18 20:55: POC Glucose (mg/dL) 221 H Vital Signs Temp Pulse Resp BP Pulse Ox 10/19/18 11:48 97.5 F L 10/19/18 07:21 98.3 F 67 20 160/82 H 10/18/18 16:00 54 L 130/75 10/18/18 13:39 133/74 10/18/18 09:29 166/82 H 10/17/18 16:37 17 97 10/17/18 16:36 98.8 F 58 L 17 153/95 H 58 L DSM 5 Symptoms Update: shortly pt is 68 yo female with reported h/o bipolar disorder, JAYLIN, denied h/o suicidal attempts, one previous psychiatric admission about a months ago under care of Dr. Fernandez at [facility], came to the hospital for evaluation and stabilization of depressive symptoms, inability to function, patient was afraid to stay alone in her apartment, forgetfulness, uncontrolled anxiety, initially patient required medical admission for electrolyte balance and bradycardia, patient was successfully treated medically side, was transferred to the psychiatric inpatient unit on October 17, patient requires further evaluation and stabilization. Patient was seen and examined today at the treatment team meeting, patient presented with poor personal hygiene, good ADLs, earl/uncombed/curly hair, tearful, anxious, hard to interview because patient had difficulties to stay focus and concentrate, pt was ambulating slowly/cautious saying that she has chronic back pain pt reported that she was not able to sleep, complaint of anxiety and depression. as per staff pt is on a verge to cry always, depressed, self isolating. klonopin increased. pt tolerated meds well, no side effects observed or reported. Impression: bipolar disorder, most recent episode depressed, severe no psychosis JAYLIN Medication Change: Yes (klonopin increased) Medical Record Reviewed: Yes Consults ordered or reviewed: pt was seen by medical doctor, see notes for more detained information Mental Status Examination - Cognitive Function Orientation: Person, Place, Situation Memory: Impaired Attention: Poor Concentration: Poor Association: Loose Fund of Knowledge: Poor - Mood Mood: Depressed, Anxious - Affect Affect: Constricted, Flat - Formal Thought Process Formal Thought Process: Paranoia - Suicidal Ideation Suicidal Ideation: No - Homicidal Ideation Homicidal Ideation: No Goal/Treatment Plan - Goal/Treatment Plan Need for Continued Stay: Remain at risks for inpatient hospitalization, Severe depression anxiety, Discharge may exacerbated symptoms, Severe functional impairment Progress Toward Problem(s) and Goals/Treatment Plan: Milieu/structure/supportive therapy SW consultation for discharge plan and social issues Med management: Depakote ER 250mg HS for mood stabilization Klonopin 0.5mg bid anxiety Abilify 5mg po daily for mood stabilization and possible paranoia Prozac 30mg po daily for depression/anxiety As needed medications Family involvement Follow up on labs Will monitor closely Pt was educated about risk/benefits and alternatives of medications, coping strategies (safety plan, suicide prevention), relapse prevention, importance of follow up with psychiatrist and therapist, stay away from drugs/alcohol/smoking Estimated Date of D/C: 10/24/18
[2018-10-19] MEDS: Divalproex 250 mg ER (ONCE DAILY formulation) PO SCH (21:51)
[2018-10-20] MEDS: Insulin Lispro (humaLOG) LOW Coverage SC SCH ×4 (08:40→21:58)
[2018-10-20] MEDS: Magnesium Oxide 400 mg Tab UD PO SCH ×2 (08:51→17:21)
--- NOTE | 2018-10-20 11:51 | PCM.PYCHPN ---
Psychiatric Progress Note - Psychiatric Progress Note Patient seen today, length of contact: 30min Patient Chief Complaint: "I am not good, I feel very anxious, I feel very-very depressed..." Problems Identified/Issues Discussed: Risk/benefits and alternatives of medications discussed, suicide/ homicide prevention, past psychiatric h/o, current psychiatric symptoms, medical problems, risk/benefits and alternatives of medications, medications compliance, coping strategies, substance abuse h/o, relapse prevention, importance of follow up with psychiatrist and therapist, discharge plan. Medical Problems: please see HPI Diagnostic Results: Lab Results 10/18/18 21:06: POC Glucose (mg/dL) 201 H 10/18/18 16:09: POC Glucose (mg/dL) 104 10/18/18 11:17: POC Glucose (mg/dL) 207 H 10/18/18 07:55: Triglycerides 223 H, Cholesterol 187, LDL Cholesterol Direct 80, HDL Cholesterol 55 10/18/18 07:55: Free T4 1.79, TSH 3rd Generation 3.76 10/18/18 07:55: RPR Nonreactive 10/18/18 07:26: POC Glucose (mg/dL) 153 H 10/17/18 20:55: POC Glucose (mg/dL) 221 H Vital Signs Temp Pulse Resp BP Pulse Ox 10/19/18 11:48 97.5 F L 10/19/18 07:21 98.3 F 67 20 160/82 H 10/18/18 16:00 54 L 130/75 10/18/18 13:39 133/74 10/18/18 09:29 166/82 H 10/17/18 16:37 17 97 10/17/18 16:36 98.8 F 58 L 17 153/95 H 58 L DSM 5 Symptoms Update: shortly pt is 68 yo female with reported h/o bipolar disorder, JAYLIN, denied h/o suicidal attempts, one previous psychiatric admission about a months ago under care of Dr. Fernandez at [facility], came to the hospital for evaluation and stabilization of depressive symptoms, inability to function, patient was afraid to stay alone in her apartment, forgetfulness, uncontrolled anxiety, initially patient required medical admission for electrolyte balance and bradycardia, patient was successfully treated medically side, was transferred to the psychiatric inpatient unit on October 17, patient requires further evaluation and stabilization. Patient was seen and examined today next to the nursing station, pt presented the same way, tearful, took a shower, pt said that she feels "depressed and hopeless", pt reported not good night sleep, tearful, anxious, hard to interview because patient had difficulties to stay focus and concentrate, pt was ambulating slowly/cautious saying that she has chronic back pain. as per staff pt is on a verge to cry always, depressed, self isolating. klonopin increased yesterday, Prozac will be increased today. pt tolerated meds well, no side effects observed or reported. Impression: bipolar disorder, most recent episode depressed, severe no psychosis JAYLIN Medication Change: Yes (prozac increased) Medical Record Reviewed: Yes Mental Status Examination - Cognitive Function Orientation: Person, Place, Situation Memory: Impaired Attention: Poor Concentration: Poor Association: Loose Fund of Knowledge: Poor - Mood Mood: Depressed, Anxious - Affect Affect: Constricted, Flat - Formal Thought Process Formal Thought Process: Paranoia - Suicidal Ideation Suicidal Ideation: No - Homicidal Ideation Homicidal Ideation: No Goal/Treatment Plan - Goal/Treatment Plan Need for Continued Stay: Remain at risks for inpatient hospitalization, Severe depression anxiety, Discharge may exacerbated symptoms, Severe functional impairment Progress Toward Problem(s) and Goals/Treatment Plan: Milieu/structure/supportive therapy SW consultation for discharge plan and social issues Med management: Depakote ER 250mg HS for mood stabilization Klonopin 0.5mg bid anxiety Abilify 5mg po daily for mood stabilization and possible paranoia Prozac 40mg po daily for depression/anxiety As needed medications Family involvement Follow up on labs Will monitor closely Pt was educated about risk/benefits and alternatives of medications, coping strategies (safety plan, suicide prevention), relapse prevention, importance of follow up with psychiatrist and therapist, stay away from drugs/alcohol/smoking Estimated Date of D/C: 10/24/18
[2018-10-20] MEDS: Divalproex 250 mg ER (ONCE DAILY formulation) PO SCH (21:18)
[2018-10-21] MEDS: Insulin Lispro (humaLOG) LOW Coverage SC SCH ×4 (08:11→23:08)
[2018-10-21] MEDS: Magnesium Oxide 400 mg Tab UD PO SCH ×2 (09:50→16:09)
--- NOTE | 2018-10-21 15:52 | PCM.PYCHPN ---
Psychiatric Progress Note - Psychiatric Progress Note Patient seen today, length of contact: 30min Patient Chief Complaint: "I am not good, I feel very anxious, I feel very-very depressed..." Problems Identified/Issues Discussed: Risk/benefits and alternatives of medications discussed, suicide/ homicide prevention, past psychiatric h/o, current psychiatric symptoms, medical problems, risk/benefits and alternatives of medications, medications compliance, coping strategies, substance abuse h/o, relapse prevention, importance of follow up with psychiatrist and therapist, discharge plan. Medical Problems: please see HPI Diagnostic Results: Lab Results 10/18/18 21:06: POC Glucose (mg/dL) 201 H 10/18/18 16:09: POC Glucose (mg/dL) 104 10/18/18 11:17: POC Glucose (mg/dL) 207 H 10/18/18 07:55: Triglycerides 223 H, Cholesterol 187, LDL Cholesterol Direct 80, HDL Cholesterol 55 10/18/18 07:55: Free T4 1.79, TSH 3rd Generation 3.76 10/18/18 07:55: RPR Nonreactive 10/18/18 07:26: POC Glucose (mg/dL) 153 H 10/17/18 20:55: POC Glucose (mg/dL) 221 H Vital Signs Temp Pulse Resp BP Pulse Ox 10/19/18 11:48 97.5 F L 10/19/18 07:21 98.3 F 67 20 160/82 H 10/18/18 16:00 54 L 130/75 10/18/18 13:39 133/74 10/18/18 09:29 166/82 H 10/17/18 16:37 17 97 10/17/18 16:36 98.8 F 58 L 17 153/95 H 58 L DSM 5 Symptoms Update: shortly pt is 68 yo female with reported h/o bipolar disorder, JAYLIN, denied h/o suicidal attempts, one previous psychiatric admission about a months ago under care of Dr. Fernandez at [facility], came to the hospital for evaluation and stabilization of depressive symptoms, inability to function, patient was afraid to stay alone in her apartment, forgetfulness, uncontrolled anxiety, initially patient required medical admission for electrolyte balance and bradycardia, patient was successfully treated medically side, was transferred to the psychiatric inpatient unit on October 17, patient requires further evaluation and stabilization. Patient was seen and examined today in her room, pt presented to be anxious, crying, said that she does not feel well, flat and tearful affect, pt reports to be "depressed and hopeless", pt reported not good night sleep, tearful, anxious, hard to interview because patient had difficulties to stay focus and concentrate, pt was ambulating slowly/cautious saying that she has chronic back pain. pt observed to have UE/LE shakes, will d/c abilify, seroquel started. as per staff pt is on a verge to cry always, depressed, self isolating. klonopin increased yesterday, Prozac will be increased today. pt has tremor on Abilify, will d/c it. collaterals from family: SW contacted pt's [id number], Andree Padilla([phone]). Patient reported to de-compensate starting in August 2018 after patient stopped taking Abilify due to having tremors. Patient was prescribed medication to counteract side effects. Pt's [id number] suggested for patient to ask for a different medication instead of taking additional medication. Pt's [id number] reports pt mistaken what she meant, resulting in patient discontinuing all of her psychotropic medications. Pt reported to be stable after she was last discharged from [facility]. Patient's zkibsjhl-ye-euo reports patient's symptoms have worsened within the past 2 weeks. Patient reported to be "winy", depressed, complains, "sad about everything," pt lost motivation to care for her ADLs, pt unable to make a decision, and is constantly worried about the future. Patient reported to have fallen 3 weeks ago and is now scared to take a shower due to fear of falling. Patient asks pt's [id number]-kl-ldu to stay in the bathroom with her. Patient reported to have no known hx of depressive symptoms until recently as pt's daughter and son. Patient's daughter reports seeing patient 2 night ago in which patient appeared to have improved. family meeting with patient's uqivymik-ld-rmw on Thursday, October 25, 2018. Impression: bipolar disorder, most recent episode depressed, severe no psychosis JAYLIN Medication Change: Yes (abilify d/c, seroquel hs) Medical Record Reviewed: Yes Consults ordered or reviewed: pt was seen by medical doctor, see notes for more detained information Mental Status Examination - Cognitive Function Orientation: Person, Place, Situation Memory: Impaired Attention: Poor Concentration: Poor Association: Loose Fund of Knowledge: Poor - Mood Mood: Depressed, Anxious - Affect Affect: Constricted, Flat - Formal Thought Process Formal Thought Process: Paranoia - Suicidal Ideation Suicidal Ideation: No - Homicidal Ideation Homicidal Ideation: No Goal/Treatment Plan - Goal/Treatment Plan Need for Continued Stay: Remain at risks for inpatient hospitalization, Severe depression anxiety, Discharge may exacerbated symptoms, Severe functional impairment Progress Toward Problem(s) and Goals/Treatment Plan: Milieu/structure/supportive therapy SW consultation for discharge plan and social issues Med management: Depakote ER 250mg HS for mood stabilization Klonopin 0.5mg bid anxiety Abilify d/c due to tremor seroquel 25hs for mood stabilization/paranoia Prozac 40mg po daily for depression/anxiety As needed medications Family involvement Follow up on labs Will monitor closely Pt was educated about risk/benefits and alternatives of medications, coping strategies (safety plan, suicide prevention), relapse prevention, importance of follow up with psychiatrist and therapist, stay away from drugs/alcohol/smoking Estimated Date of D/C: 10/24/18
[2018-10-21] MEDS: Divalproex 250 mg ER (ONCE DAILY formulation) PO SCH (21:12)
[2018-10-22] MEDS: Insulin Lispro (humaLOG) LOW Coverage SC SCH ×4 (08:00→21:41)
--- NOTE | 2018-10-22 09:13 | PCM.PYCHPN ---
Psychiatric Progress Note - Psychiatric Progress Note Patient seen today, length of contact: 30min Problems Identified/Issues Discussed: I reviewed assessment and recent notes. Patient is known to me from our outpatient encounters at [facility]. She hasn't been doing well since her discharge from the unit in September. Prozac was increased to almost maximum dose and wellbutrin was initiated in my care without much improvement. I saw her last week and recommended admission however she deferred at that time. She was accompanied by her [id number]-qtr who noted that patient's depression worsened and became unmanageable after abilify was discontinued due to tremors. Abilify was restarted at a conservative dose of 2 mg daily so that this provider could monitor for this side effect and it appears it was discontinued on the unit. Presently patient is alert and oriented x3. She remembers me from our appointments together and appears grateful for my visit. She indicates "a little improvement" since admission and repeats "just a little bit". Sleep has been restless. Patient's affect still appears constricted and withdrawn. Staff have noted that she still appears anxious and dependent at times though more visible on the unit. She is pleasant and there have been no behavioral issues. Thus far she denies any side effects, discomfort or pain. Will continue to monitor progress. Diagnostic Results: Bipolar disorder as per history, most recent episode depressed Generalized anxiety disorder Medication Change: No ( ) Medical Record Reviewed: Yes Mental Status Examination - Cognitive Function Orientation: Person, Place, Situation Memory: Impaired Attention: WNL Concentration: Poor Association: Loose Fund of Knowledge: Poor - Mood Mood: Depressed, Anxious - Affect Affect: Constricted, Flat - Speech Speech: Appropriate - Formal Thought Process Formal Thought Process: No Impairment, Paranoia, Loosening of associations (a little scattered) - Suicidal Ideation Suicidal Ideation: No - Homicidal Ideation Homicidal Ideation: No Goal/Treatment Plan - Goal/Treatment Plan Need for Continued Stay: Remain at risks for inpatient hospitalization, Severe depression anxiety, Discharge may exacerbated symptoms, Severe functional impairment Progress Toward Problem(s) and Goals/Treatment Plan: * c/w current tx and plan * No new weekend lab results thus far * Vitals reviewed and noted below: 10/21/18 10/21/18 07:24 16:00 Temperature 97.6 F Pulse Rate 59 L 66 Respiratory 20 Rate Blood Pressure 132/86 134/80 Estimated Date of D/C: 10/24/18
[2018-10-22] MEDS: Magnesium Oxide 400 mg Tab UD PO SCH (10:02)
[2018-10-22] MEDS: Divalproex 250 mg ER (ONCE DAILY formulation) PO SCH (21:34)
[2018-10-23] MEDS: Insulin Lispro (humaLOG) LOW Coverage SC SCH ×4 (08:34→21:16)
--- NOTE | 2018-10-23 10:36 | PCM.PYCHPN ---
Psychiatric Progress Note - Psychiatric Progress Note Patient seen today, length of contact: 30min Problems Identified/Issues Discussed: I reviewed assessment and recent notes. Patient is known to me from our outpatient encounters at [facility]. She hasn't been doing well since her discharge from the unit in September. Prozac had been increased to almost maximum dose and wellbutrin was initiated in my care without much improvement. I saw her last week and recommended admission however she deferred at that time. She was accompanied by her sxbtnett-oe-vqj and best friend who both noted that patient's depression worsened and became unmanageable after abilify was discontinued. Abilify was discontinued because it caused tremors. Due to patient's distress, Abilify was restarted at a conservative dose of 2 mg daily so that this provider could monitor for this side effect. This medication was recently discontinued on the unit before full re-evaluation of its effectiveness vs. side effects. Patient indicates that she wants to restart this medication since it was so beneficial in the past. She complains that seroquel is making her too tired during the day though it has been beneficial for sleep. She does note some improvement in mood thus far and her thought process appears a little more spontaneous and clear than our outpatient encounters. Overall, her affect remains constricted. Staff have noted that she still appears anxious and dependent at times though more visible on the unit. She can be pleasant and social. There have been no behavioral issues. Diagnostic Results: Bipolar disorder as per history, most recent episode depressed Generalized anxiety disorder Medication Change: No ( ) Medical Record Reviewed: Yes Mental Status Examination - Cognitive Function Orientation: Person, Place, Situation Memory: Impaired Attention: WNL Concentration: Poor Association: Loose Fund of Knowledge: Poor - Mood Mood: Depressed (a little improved), Anxious - Affect Affect: Constricted, Flat - Speech Speech: Appropriate - Formal Thought Process Formal Thought Process: No Impairment, Paranoia, Loosening of associations (a little scattered) - Suicidal Ideation Suicidal Ideation: No - Homicidal Ideation Homicidal Ideation: No Goal/Treatment Plan - Goal/Treatment Plan Need for Continued Stay: Remain at risks for inpatient hospitalization, Severe depression anxiety, Discharge may exacerbated symptoms, Severe functional impairment Progress Toward Problem(s) and Goals/Treatment Plan: * c/w current tx and plan * No new weekend lab results thus far * Consider restarting abilify in lieu of seroquel, per patient request * Vitals reviewed and noted below: Selected Entries 10/22/18 10/22/18 07:00 16:07 Temperature 97.7 F Pulse Rate 53 L 71 Respiratory 18 Rate Blood Pressure 158/84 H 134/81 Estimated Date of D/C: 10/24/18
[2018-10-23] MEDS: Divalproex 250 mg ER (ONCE DAILY formulation) PO SCH (21:11)
[2018-10-24] MEDS: Insulin Lispro (humaLOG) LOW Coverage SC SCH ×4 (09:28→21:08)
--- NOTE | 2018-10-24 12:54 | PCM.PYCHPN ---
Psychiatric Progress Note - Psychiatric Progress Note Patient seen today, length of contact: 30min Patient Chief Complaint: "I am not good, I feel very anxious, I feel very-very depressed..." Problems Identified/Issues Discussed: Risk/benefits and alternatives of medications discussed, suicide/ homicide prevention, past psychiatric h/o, current psychiatric symptoms, medical problems, risk/benefits and alternatives of medications, medications compliance, coping strategies, substance abuse h/o, relapse prevention, importance of follow up with psychiatrist and therapist, discharge plan. Medical Problems: please see HPI Diagnostic Results: Lab Results 10/18/18 21:06: POC Glucose (mg/dL) 201 H 10/18/18 16:09: POC Glucose (mg/dL) 104 10/18/18 11:17: POC Glucose (mg/dL) 207 H 10/18/18 07:55: Triglycerides 223 H, Cholesterol 187, LDL Cholesterol Direct 80, HDL Cholesterol 55 10/18/18 07:55: Free T4 1.79, TSH 3rd Generation 3.76 10/18/18 07:55: RPR Nonreactive 10/18/18 07:26: POC Glucose (mg/dL) 153 H 10/17/18 20:55: POC Glucose (mg/dL) 221 H Vital Signs Temp Pulse Resp BP Pulse Ox 10/19/18 11:48 97.5 F L 10/19/18 07:21 98.3 F 67 20 160/82 H 10/18/18 16:00 54 L 130/75 10/18/18 13:39 133/74 10/18/18 09:29 166/82 H 10/17/18 16:37 17 97 10/17/18 16:36 98.8 F 58 L 17 153/95 H 58 L DSM 5 Symptoms Update: shortly pt is 68 yo female with reported h/o bipolar disorder, JAYLIN, denied h/o suicidal attempts, one previous [facility] about a [facility], came to the hospital for evaluation and stabilization of depressive symptoms, inability to function, patient was afraid to stay alone in her apartment, forgetfulness, uncontrolled anxiety, initially patient required medical admission for electrolyte balance and bradycardia, patient was successfully treated medically side, was transferred to the psychiatric inpatient unit on October 17, patient requires further evaluation and stabilization. Patient was seen and examined today the treatment area, patient pt presented to be anxious, sad that she refused to take Seroquel because she feels sleepy at the morning. Patient reports that she is doing a little bit better, patient was not able to tolerate Abilify because of the tremor, Seroquel patient does not want to take because of sleepiness, this hand sign writer offered Geodon at the nighttime 20 mg for mood stabilization, patient is willing to try that medication. Risk/benefits/alternatives discussed in details. collaterals from family: SW contacted pt's [id number], Andree Padilla([phone]). Patient reported to de-compensate starting in August 2018 after patient stopped taking Abilify due to having tremors. Patient was prescribed medication to counteract side effects. Pt's [id number] suggested for patient to ask for a different medication instead of taking additional medication. Pt's [id number] reports pt mistaken what she meant, resulting in patient discontinuing all of her psychotropic medications. Pt reported to be stable after she was last discharged from [facility]. Patient's [id number] reports patient's symptoms have worsened within the past 2 weeks. Patient reported to be "winy", depressed, complains, "sad about everything," pt lost motivation to care for her ADLs, pt unable to make a decision, and is constantly worried about the future. Patient reported to have fallen 3 weeks ago and is now scared to take a shower due to fear of falling. Patient asks pt's iivakavu-[id number] to stay in the bathroom with her. Patient reported to have no known hx of depressive symptoms until recently as pt's daughter and son. Patient's daughter reports seeing patient 2 night ago in which patient appeared to have improved. family meeting with patient's [id number] on Thursday, October 25, 2018. Impression: bipolar disorder, most recent episode depressed, severe no psychosis JAYLIN Medication Change: Yes (Geodon 20 mg at the nighttime) Medical Record Reviewed: Yes Mental Status Examination - Cognitive Function Orientation: Person, Place, Situation Memory: Impaired Attention: WNL Concentration: Poor Association: Loose Fund of Knowledge: Poor - Mood Mood: Depressed (a little improved), Anxious - Affect Affect: Constricted, Flat - Speech Speech: Appropriate - Formal Thought Process Formal Thought Process: No Impairment, Paranoia, Loosening of associations (a little scattered) - Suicidal Ideation Suicidal Ideation: No - Homicidal Ideation Homicidal Ideation: No Goal/Treatment Plan - Goal/Treatment Plan Need for Continued Stay: Remain at risks for inpatient hospitalization, Severe depression anxiety, Discharge may exacerbated symptoms, Severe functional impairment Progress Toward Problem(s) and Goals/Treatment Plan: Milieu/structure/supportive therapy SW consultation for discharge plan and social issues Med management: Depakote ER 250mg HS for mood stabilization Klonopin 0.5mg bid anxiety Abilify d/c due to tremor seroquel discontinued because of sleepiness Geodon 20 mg at the nighttime for mood stabilization Prozac 40mg po daily for depression/anxiety As needed medications Family involvement Follow up on labs Will monitor closely Pt was educated about risk/benefits and alternatives of medications, coping strategies (safety plan, suicide prevention), relapse prevention, importance of follow up with psychiatrist and therapist, stay away from drugs/alcohol/smoking Estimated Date of D/C: 10/28/18
[2018-10-24] MEDS: Divalproex 250 mg ER (ONCE DAILY formulation) PO SCH (21:13)
[2018-10-25] MEDS: Insulin Lispro (humaLOG) LOW Coverage SC SCH ×4 (08:12→21:11)
[2018-10-25 10:14] LABS: BASO # 0.01 K/mm3 (0.0-2.0); BASO % 0.2 % (0.0-3.0); EOS # 0.1 (0.0-0.7); HEMOGLOBIN 14.2 g/dL (12.0-16.0); LYMPH # 1.7 (1.2-3.4); LYMPH % 27.6 % (22.0-35.0); MEAN CELL VOLUME 91.3 fl (80.0-105.0); MEAN CORPUSCULAR HEMOGLOBIN 31.6 pg (25.0-35.0); MEAN CORPUSCULAR HGB CONC 34.5 g/dl (31.0-37.0); MEAN PLATELET VOLUME 9.9 fl (7.0-11.0); MONO # 0.4 (0.1-0.6); MONO % 5.8 % (1.0-6.0); RBC 4.5 10^6/uL (3.5-6.1); RED CELL DISTRIBUTION WIDTH 12.7 % (11.5-14.5)
[2018-10-25 10:25] LABS: ALB/GLOB RATIO 1.3 (1.1-1.8); ALBUMIN 4.1 g/dL (3.0-4.8); ALT/SGPT 8 U/L (7-56); AST/SGOT 20 U/L (14-36); BLOOD UREA NITROGEN 18 mg/dL (7-21); GFR NON-AFRICAN AMERICAN > 60
--- NOTE | 2018-10-25 15:20 | PCM.PYCHPN ---
Psychiatric Progress Note - Psychiatric Progress Note Patient seen today, length of contact: 30min Patient Chief Complaint: "I am feeling little better" Problems Identified/Issues Discussed: Risk/benefits and alternatives of medications discussed, suicide/ homicide prevention, past psychiatric h/o, current psychiatric symptoms, medical problems, risk/benefits and alternatives of medications, medications compliance, coping strategies, substance abuse h/o, relapse prevention, importance of follow up with psychiatrist and therapist, discharge plan. Medical Problems: please see HPI Diagnostic Results: Lab Results 10/18/18 21:06: POC Glucose (mg/dL) 201 H 10/18/18 16:09: POC Glucose (mg/dL) 104 10/18/18 11:17: POC Glucose (mg/dL) 207 H 10/18/18 07:55: Triglycerides 223 H, Cholesterol 187, LDL Cholesterol Direct 80, HDL Cholesterol 55 10/18/18 07:55: Free T4 1.79, TSH 3rd Generation 3.76 10/18/18 07:55: RPR Nonreactive 10/18/18 07:26: POC Glucose (mg/dL) 153 H 10/17/18 20:55: POC Glucose (mg/dL) 221 H Vital Signs Temp Pulse Resp BP Pulse Ox 10/19/18 11:48 97.5 F L 10/19/18 07:21 98.3 F 67 20 160/82 H 10/18/18 16:00 54 L 130/75 10/18/18 13:39 133/74 10/18/18 09:29 166/82 H 10/17/18 16:37 17 97 10/17/18 16:36 98.8 F 58 L 17 153/95 H 58 L DSM 5 Symptoms Update: shortly pt is 68 yo female with reported h/o bipolar disorder, JAYLIN, denied h/o suicidal attempts, one previous psychiatric admission about a months ago under care of Dr. Fernandez at [facility], came to the hospital for evaluation and stabilization of depressive symptoms, inability to function, patient was afraid to stay alone in her apartment, forgetfulness, uncontrolled anxiety, initially patient required medical admission for electrolyte balance and bradycardia, patient was successfully treated medically side, was transferred to the psychiatric inpatient unit on October 17, patient requires further evaluation and stabilization. Family meeting took place today October 25, 2018 with social media campaign manager, patient's [id number] Andree Padilla, patient herself. Treatment plan was discussed in details, patient's daughter in law seems to be sincerely involved in to the patient life, all questions answered, meeting went well, please see social media campaign manager notes for more detailed information." Andree asked about blood work, will order and f/u on it. Patient herself presented much better, patient was able to participate in interview, patient's affect was more reactive, patient was able to participate in interview but patient still has difficulties to stay focused and concentrate, seems to be overwhelmed with the new information. So far patient tolerates Geodon well, no side effects observed or reported, patient is willing to go Geodon to 20 mg twice a day. So far patient tolerates medications well, no side effects observed or reported, aims 0, no EPS. Impression: bipolar disorder, most recent episode depressed, severe no psychosis JAYLIN Medication Change: Yes (Geodon increased) Medical Record Reviewed: Yes Mental Status Examination - Cognitive Function Orientation: Person, Place, Situation Memory: Impaired Attention: WNL Concentration: Poor Association: Loose Fund of Knowledge: Poor - Mood Mood: Depressed (a little improved), Anxious - Affect Affect: Constricted, Flat - Speech Speech: Appropriate - Formal Thought Process Formal Thought Process: No Impairment, Paranoia, Loosening of associations (a little scattered) - Suicidal Ideation Suicidal Ideation: No - Homicidal Ideation Homicidal Ideation: No Goal/Treatment Plan - Goal/Treatment Plan Need for Continued Stay: Remain at risks for inpatient hospitalization, Severe depression anxiety, Discharge may exacerbated symptoms, Severe functional impairment Progress Toward Problem(s) and Goals/Treatment Plan: Milieu/structure/supportive therapy SW consultation for discharge plan and social issues Med management: Depakote ER 250mg HS for mood stabilization Klonopin 0.5mg bid anxiety Abilify d/c due to tremor seroquel discontinued because of sleepiness Geodon 20 mg the morning and nighttime for mood stabilization Prozac 40mg po daily for depression/anxiety As needed medications Family involvement Follow up on labs Will monitor closely Pt was educated about risk/benefits and alternatives of medications, coping strategies (safety plan, suicide prevention), relapse prevention, importance of follow up with psychiatrist and therapist, stay away from drugs/alcohol/smoking Estimated Date of D/C: 10/28/18
[2018-10-25] MEDS: Divalproex 250 mg ER (ONCE DAILY formulation) PO SCH (21:13)
[2018-10-26 07:04] VITALS: RESP 20
[2018-10-26] MEDS: Insulin Lispro (humaLOG) LOW Coverage SC SCH ×4 (09:15→22:02)
--- NOTE | 2018-10-26 14:10 | PCM.PYCHPN ---
Psychiatric Progress Note - Psychiatric Progress Note Patient seen today, length of contact: 30min Patient Chief Complaint: "I am feeling little better.." Problems Identified/Issues Discussed: Medications, discharge plan, aftercare plan. Medical Problems: please see HPI Diagnostic Results: Lab Results 10/18/18 21:06: POC Glucose (mg/dL) 201 H 10/18/18 16:09: POC Glucose (mg/dL) 104 10/18/18 11:17: POC Glucose (mg/dL) 207 H 10/18/18 07:55: Triglycerides 223 H, Cholesterol 187, LDL Cholesterol Direct 80, HDL Cholesterol 55 10/18/18 07:55: Free T4 1.79, TSH 3rd Generation 3.76 10/18/18 07:55: RPR Nonreactive 10/18/18 07:26: POC Glucose (mg/dL) 153 H 10/17/18 20:55: POC Glucose (mg/dL) 221 H Vital Signs Temp Pulse Resp BP Pulse Ox 10/19/18 11:48 97.5 F L 10/19/18 07:21 98.3 F 67 20 160/82 H 10/18/18 16:00 54 L 130/75 10/18/18 13:39 133/74 10/18/18 09:29 166/82 H 10/17/18 16:37 17 97 10/17/18 16:36 98.8 F 58 L 17 153/95 H 58 L 10/25/18 10:00 10/25/18 10:00 Lab Results 10/26/18 07:21: POC Glucose (mg/dL) 124 H 10/25/18 20:51: POC Glucose (mg/dL) 155 H 10/25/18 16:06: POC Glucose (mg/dL) 239 H 10/25/18 11:13: POC Glucose (mg/dL) 157 H 10/25/18 10:00: Sodium 138, Potassium 4.7, Chloride 97 L, Carbon Dioxide 33, Anion Gap 13, BUN 18, Creatinine 0.7, Est GFR ( Amer) > 60, Est GFR (Non- Af Amer) > 60, Random Glucose 225 H, Calcium 10.0, Total Bilirubin 0.5, AST 20, ALT 8, Alkaline Phosphatase 51, Total Protein 7.3, Albumin 4.1, Globulin 3.2, Albumin/Globulin Ratio 1.3 10/25/18 10:00: WBC 6.0 D, RBC 4.50, Hgb 14.2, Hct 41.1, MCV 91.3 D, MCH 31.6, MCHC 34.5, RDW 12.7, Plt Count 217, MPV 9.9, Neut % (Auto) 64.4, Lymph % (Auto) 27.6, [place] % (Auto) 5.8, Eos % (Auto) 2.0, Baso % (Auto) 0.2, Lymph # (Auto) 1.7, [place] # (Auto) 0.4, Eos # (Auto) 0.1, Baso # (Auto) 0.01, Absolute Neuts (auto) 3.87 10/25/18 07:17: POC Glucose (mg/dL) 137 H 10/24/18 21:01: POC Glucose (mg/dL) 168 H 10/24/18 16:08: POC Glucose (mg/dL) 105 10/24/18 11:47: POC Glucose (mg/dL) 119 H 10/24/18 07:13: POC Glucose (mg/dL) 114 H 10/23/18 21:13: POC Glucose (mg/dL) 190 H 10/23/18 16:02: POC Glucose (mg/dL) 76 10/23/18 11:30: POC Glucose (mg/dL) 132 H 10/23/18 07:32: POC Glucose (mg/dL) 123 H 10/22/18 21:33: POC Glucose (mg/dL) 156 H 10/22/18 16:01: POC Glucose (mg/dL) 165 H 10/22/18 11:34: POC Glucose (mg/dL) 140 H 10/22/18 08:08: POC Glucose (mg/dL) 126 H 10/21/18 21:15: POC Glucose (mg/dL) 172 H 10/21/18 16:14: POC Glucose (mg/dL) 132 H 10/21/18 11:12: POC Glucose (mg/dL) 142 H 10/21/18 07:16: POC Glucose (mg/dL) 128 H 10/20/18 21:03: POC Glucose (mg/dL) 126 H 10/20/18 16:24: POC Glucose (mg/dL) 170 H 10/20/18 11:49: POC Glucose (mg/dL) 112 H 10/20/18 07:47: POC Glucose (mg/dL) 146 H 10/19/18 21:08: POC Glucose (mg/dL) 122 H 10/19/18 15:56: POC Glucose (mg/dL) 90 10/19/18 11:25: POC Glucose (mg/dL) 206 H 10/19/18 07:32: POC Glucose (mg/dL) 163 H 10/18/18 21:06: POC Glucose (mg/dL) 201 H 10/18/18 16:09: POC Glucose (mg/dL) 104 10/18/18 11:17: POC Glucose (mg/dL) 207 H 10/18/18 07:55: Triglycerides 223 H, Cholesterol 187, LDL Cholesterol Direct 80, HDL Cholesterol 55 10/18/18 07:55: Free T4 1.79, TSH 3rd Generation 3.76 10/18/18 07:55: RPR Nonreactive 10/18/18 07:26: POC Glucose (mg/dL) 153 H 10/17/18 20:55: POC Glucose (mg/dL) 221 H Vital Signs Temp Pulse Resp BP Pulse Ox 10/26/18 07:03 97.1 F L 59 L 20 10/25/18 16:00 73 109/71 10/25/18 07:00 98 F 64 17 151/68 H 10/24/18 16:00 68 154/67 H 10/24/18 07:13 97.8 F 84 20 157/70 H 10/23/18 15:47 60 148/88 10/23/18 07:00 98.0 F 55 L 16 138/73 97 10/23/18 06:52 98.0 F 55 L 16 138/73 10/22/18 16:07 71 134/81 10/22/18 07:00 97.7 F 53 L 18 158/84 H 10/21/18 16:00 66 134/80 10/21/18 07:24 97.6 F 59 L 20 132/86 10/20/18 16:00 69 119/80 10/20/18 06:54 98.1 F 80 20 114/76 10/19/18 16:00 62 118/69 10/19/18 11:48 97.5 F L 10/19/18 07:21 98.3 F 67 20 160/82 H 10/18/18 16:00 54 L 130/75 10/18/18 13:39 133/74 10/18/18 09:29 166/82 H 10/17/18 16:37 17 97 10/17/18 16:36 98.8 F 58 L 17 153/95 H 58 L DSM 5 Symptoms Update: shortly pt is 68 yo female with reported h/o bipolar disorder, JAYLIN, denied h/o suicidal attempts, one previous psychiatric admission about a months ago under care of Dr. Fernandez at [facility], came to the hospital for evaluation and stabilization of depressive symptoms, inability to function, patient was afraid to stay alone in her apartment, forgetfulness, uncontrolled anxiety, in itially patient required medical admission for electrolyte balance and bradycardia, patient was successfully treated medically side, was transferred to the psychiatric inpatient unit on October 17, patient requires further evaluation and stabilization. Family meeting took place today October 25, 2018 with executive secretary social welfare, patient's [id number] Andree Padilla, patient herself and this science writer, please see SW note for more detailed info. Patient was seen today at the treatment team meeting, patient presented with improved personal hygiene, patient was less tearful and less anxious, she reported that she likes medications which she is taking right now, no side effects observed or reported, patient has transient feeling of hopelessness and helplessness, extreme worry about discharge, overall patient presented better. So far patient tolerates medications well, no side effects observed or reported, aims 0, no EPS. Impression: bipolar disorder, most recent episode depressed, severe no psychosis JAYLIN Medication Change: Yes (Ronald increased) Medical Record Reviewed: Yes Consults ordered or reviewed: pt was seen by medical doctor, see notes for more detained information Mental Status Examination - Cognitive Function Orientation: Person, Place, Situation Memory: Impaired Attention: WNL Concentration: Poor (Some improvement) Association: Loose Fund of Knowledge: Poor - Mood Mood: Depressed (a little improved), Anxious - Affect Affect: Constricted (But some reactivity) - Speech Speech: Appropriate - Formal Thought Process Formal Thought Process: No Impairment, Paranoia ( denied), Loosening of associations (Better) - Suicidal Ideation Suicidal Ideation: No - Homicidal Ideation Homicidal Ideation: No Goal/Treatment Plan - Goal/Treatment Plan Need for Continued Stay: Remain at risks for inpatient hospitalization, Severe depression anxiety, Discharge may exacerbated symptoms, Severe functional impairment Progress Toward Problem(s) and Goals/Treatment Plan: Milieu/structure/supportive therapy SW consultation for discharge plan and social issues Med management: Depakote ER 250mg HS for mood stabilization Klonopin 0.5mg bid anxiety Abilify d/c due to tremor seroquel discontinued because of sleepiness Geodon 20 mg the morning and nighttime for mood stabilization Prozac 40mg po daily for depression/anxiety As needed medications Family involvement Follow up on labs Will monitor closely Pt was educated about risk/benefits and alternatives of medications, coping strategies (safety plan, suicide prevention), relapse prevention, importance of follow up with psychiatrist and therapist, stay away from drugs/alcohol/smoking Estimated Date of D/C: 10/28/18
[2018-10-26] MEDS: Divalproex 250 mg ER (ONCE DAILY formulation) PO SCH (22:12)
[2018-10-26] MEDS: Alum-Mag Hydrox-Simethicone Susp (30 mL) PO PRN (22:30)
[2018-10-27] MEDS: Insulin Lispro (humaLOG) LOW Coverage SC SCH ×4 (09:50→22:27)
--- NOTE | 2018-10-27 15:00 | PCM.PYCHPN ---
Psychiatric Progress Note - Psychiatric Progress Note Patient seen today, length of contact: 30min Patient Chief Complaint: "I feel better.." Problems Identified/Issues Discussed: Medications, discharge plan, aftercare plan. Medical Problems: please see HPI Diagnostic Results: Lab Results 10/18/18 21:06: POC Glucose (mg/dL) 201 H 10/18/18 16:09: POC Glucose (mg/dL) 104 10/18/18 11:17: POC Glucose (mg/dL) 207 H 10/18/18 07:55: Triglycerides 223 H, Cholesterol 187, LDL Cholesterol Direct 80, HDL Cholesterol 55 10/18/18 07:55: Free T4 1.79, TSH 3rd Generation 3.76 10/18/18 07:55: RPR Nonreactive 10/18/18 07:26: POC Glucose (mg/dL) 153 H 10/17/18 20:55: POC Glucose (mg/dL) 221 H Vital Signs Temp Pulse Resp BP Pulse Ox 10/19/18 11:48 97.5 F L 10/19/18 07:21 98.3 F 67 20 160/82 H 10/18/18 16:00 54 L 130/75 10/18/18 13:39 133/74 10/18/18 09:29 166/82 H 10/17/18 16:37 17 97 10/17/18 16:36 98.8 F 58 L 17 153/95 H 58 L 10/25/18 10:00 10/25/18 10:00 Lab Results 10/26/18 07:21: POC Glucose (mg/dL) 124 H 10/25/18 20:51: POC Glucose (mg/dL) 155 H 10/25/18 16:06: POC Glucose (mg/dL) 239 H 10/25/18 11:13: POC Glucose (mg/dL) 157 H 10/25/18 10:00: Sodium 138, Potassium 4.7, Chloride 97 L, Carbon Dioxide 33, Anion Gap 13, BUN 18, Creatinine 0.7, Est GFR ( Amer) > 60, Est GFR (Non- Af Amer) > 60, Random Glucose 225 H, Calcium 10.0, Total Bilirubin 0.5, AST 20, ALT 8, Alkaline Phosphatase 51, Total Protein 7.3, Albumin 4.1, Globulin 3.2, Albumin/Globulin Ratio 1.3 10/25/18 10:00: WBC 6.0 D, RBC 4.50, Hgb 14.2, Hct 41.1, MCV 91.3 D, MCH 31.6, MCHC 34.5, RDW 12.7, Plt Count 217, MPV 9.9, Neut % (Auto) 64.4, Lymph % (Auto) 27.6, [place] % (Auto) 5.8, Eos % (Auto) 2.0, Baso % (Auto) 0.2, Lymph # (Auto) 1.7, [place] # (Auto) 0.4, Eos # (Auto) 0.1, Baso # (Auto) 0.01, Absolute Neuts (auto) 3.87 10/25/18 07:17: POC Glucose (mg/dL) 137 H 10/24/18 21:01: POC Glucose (mg/dL) 168 H 10/24/18 16:08: POC Glucose (mg/dL) 105 10/24/18 11:47: POC Glucose (mg/dL) 119 H 10/24/18 07:13: POC Glucose (mg/dL) 114 H 10/23/18 21:13: POC Glucose (mg/dL) 190 H 10/23/18 16:02: POC Glucose (mg/dL) 76 10/23/18 11:30: POC Glucose (mg/dL) 132 H 10/23/18 07:32: POC Glucose (mg/dL) 123 H 10/22/18 21:33: POC Glucose (mg/dL) 156 H 10/22/18 16:01: POC Glucose (mg/dL) 165 H 10/22/18 11:34: POC Glucose (mg/dL) 140 H 10/22/18 08:08: POC Glucose (mg/dL) 126 H 10/21/18 21:15: POC Glucose (mg/dL) 172 H 10/21/18 16:14: POC Glucose (mg/dL) 132 H 10/21/18 11:12: POC Glucose (mg/dL) 142 H 10/21/18 07:16: POC Glucose (mg/dL) 128 H 10/20/18 21:03: POC Glucose (mg/dL) 126 H 10/20/18 16:24: POC Glucose (mg/dL) 170 H 10/20/18 11:49: POC Glucose (mg/dL) 112 H 10/20/18 07:47: POC Glucose (mg/dL) 146 H 10/19/18 21:08: POC Glucose (mg/dL) 122 H 10/19/18 15:56: POC Glucose (mg/dL) 90 10/19/18 11:25: POC Glucose (mg/dL) 206 H 10/19/18 07:32: POC Glucose (mg/dL) 163 H 10/18/18 21:06: POC Glucose (mg/dL) 201 H 10/18/18 16:09: POC Glucose (mg/dL) 104 10/18/18 11:17: POC Glucose (mg/dL) 207 H 10/18/18 07:55: Triglycerides 223 H, Cholesterol 187, LDL Cholesterol Direct 80, HDL Cholesterol 55 10/18/18 07:55: Free T4 1.79, TSH 3rd Generation 3.76 10/18/18 07:55: RPR Nonreactive 10/18/18 07:26: POC Glucose (mg/dL) 153 H 10/17/18 20:55: POC Glucose (mg/dL) 221 H Vital Signs Temp Pulse Resp BP Pulse Ox 10/26/18 07:03 97.1 F L 59 L 20 10/25/18 16:00 73 109/71 10/25/18 07:00 98 F 64 17 151/68 H 10/24/18 16:00 68 154/67 H 10/24/18 07:13 97.8 F 84 20 157/70 H 10/23/18 15:47 60 148/88 10/23/18 07:00 98.0 F 55 L 16 138/73 97 10/23/18 06:52 98.0 F 55 L 16 138/73 10/22/18 16:07 71 134/81 10/22/18 07:00 97.7 F 53 L 18 158/84 H 10/21/18 16:00 66 134/80 10/21/18 07:24 97.6 F 59 L 20 132/86 10/20/18 16:00 69 119/80 10/20/18 06:54 98.1 F 80 20 114/76 10/19/18 16:00 62 118/69 10/19/18 11:48 97.5 F L 10/19/18 07:21 98.3 F 67 20 160/82 H 10/18/18 16:00 54 L 130/75 10/18/18 13:39 133/74 10/18/18 09:29 166/82 H 10/17/18 16:37 17 97 10/17/18 16:36 98.8 F 58 L 17 153/95 H 58 L DSM 5 Symptoms Update: shortly pt is 68 yo female with reported h/o bipolar disorder, JAYLIN, denied h/o suicidal attempts, one previous psychiatric admission about a months ago under care of Dr. Fernandez at [facility], came to the hospital for evaluation and stabilization of depressive symptoms, inability to function, patient was afraid to stay alone in her apartment, forgetfulness, uncontrolled anxiety, initially patient required medical admission for electrolyte balance and bradycardia, patient was successfully treated medically side, was transferred to the psychiatric inpatient unit on October 17, patient requires further evaluation and stabilization. Family meeting took place October 25, 2018 with executive secretary social welfare, patient's [id number] Andree Padilla, patient herself and this senior grant writer, please see SW note for more detailed info. Patient was seen today next to the nursing station, patient presented with improved personal hygiene, patient was less tearful and less anxious, she reported that she likes medications which she is taking right now, no side effects observed or reported, patient has transient feeling of hopelessness and helplessness, extreme worry about discharge, overall patient presented better. Patient has future oriented plans, patient is ready for discharge tomorrow. So far patient tolerates medications well, no side effects observed or reported, aims 0, no EPS. Impression: bipolar disorder, most recent episode depressed, severe no psychosis JAYLIN Medication Change: No Medical Record Reviewed: Yes Mental Status Examination - Cognitive Function Orientation: Person, Place, Situation Memory: Impaired Attention: WNL Concentration: Poor (Some improvement) Association: Loose Fund of Knowledge: Poor - Mood Mood: Depressed (a little improved), Anxious - Affect Affect: Constricted (But some reactivity) - Speech Speech: Appropriate - Formal Thought Process Formal Thought Process: No Impairment, Paranoia ( denied), Loosening of associations (Better) - Suicidal Ideation Suicidal Ideation: No - Homicidal Ideation Homicidal Ideation: No Goal/Treatment Plan - Goal/Treatment Plan Need for Continued Stay: Remain at risks for inpatient hospitalization, Severe depression anxiety, Discharge may exacerbated symptoms, Severe functional impairment Progress Toward Problem(s) and Goals/Treatment Plan: Milieu/structure/supportive therapy SW consultation for discharge plan and social issues Med management: Depakote ER 250mg HS for mood stabilization Klonopin 0.5mg bid anxiety Abilify d/c due to tremor seroquel discontinued because of sleepiness Geodon 20 mg the morning and nighttime for mood stabilization Prozac 40mg po daily for depression/anxiety As needed medications Family involvement Follow up on labs Will monitor closely Pt was educated about risk/benefits and alternatives of medications, coping strategies (safety plan, suicide prevention), relapse prevention, importance of follow up with psychiatrist and therapist, stay away from drugs/alcohol/smoking Estimated Date of D/C: 10/28/18
[2018-10-27 16:44] VITALS: PULSE 64
[2018-10-27] MEDS: Divalproex 250 mg ER (ONCE DAILY formulation) PO SCH (21:56)
[2018-10-28 07:02] VITALS: BP 160/81; TEMP 98
[2018-10-28] MEDS: Insulin Lispro (humaLOG) LOW Coverage SC SCH ×2 (07:30→11:30)
--- NOTE | 2018-10-28 16:07 | PCM.PYCHDC ---
Mental Status Examination - Mental Status Examination Orientation: Person, Place, Situation, Time Memory: Intact Mood: Neutral Affect: Constricted (but reactive, mood congruent) Speech: Appropriate Attention: Poor (With much improvement) Concentration: Poor (With much improvement) Association: WNL Fund of Knowledge: Poor (Baseline) Formal Thought Process: No Impairment Description of patient's judgement and insight: Pt has improved insight into mental and medical illness, pt was compliant with medications and unit rules and regulations, pt was attending therapy groups, was calm, cooperative, socially appropriate, no behavioral incidents, no agitation, no aggression. Psychotic Thoughts and Behaviors: Pt denied v/a/t hallucinations, denied paranoid ideations, pt does not appear to be psychotic, and thought process is goal directed. Suicidal Ideation: No Current Homicidal Ideation?: No Plan: pt adamantly denied thoughts of harming self or others denied intent or plan. Discharge Summary - Discharge Note Reason for Hospitalization: Patient was transferred from the medical side for evaluation and stabilization of depressive symptoms, inability to function, uncontrolled anxiety, hopelessness and helplessness. Psychiatric History (includes Medical, Family, Personal Hx): See HPI Laboratory Data: Abnormal Lab Results 10/27/18 10/27/18 10/27/18 11:32 16:13 20:54 POC Glucose (mg/dL) 140 H 221 H 138 H 10/28/18 07:15 POC Glucose (mg/dL) 143 H Consultations:: List each consultation separately and include: 1. Reason for request. 2. Findings. 3. Follow-up Consultations: pt was seen by medical doctor, see notes for more detained information Summary of Hospital Course include:: 1. Description of specific treatment plan utilized for patients during their course of treatmen. 2. Summarize the time- course for resolution of acute symptoms and/or regressed behaviors. 3. Describe issues identified and worked on during hospitalization. 4. Describe medication utilized. 5. Describe medical problems identified and treated. 6. Reassessment of suicide risk Summary of Hospital Course: shortly pt is 68 yo female with reported h/o bipolar disorder, JAYLIN, denied h/o suicidal attempts, one previous psychiatric admission about a months ago under care of Dr. Fernandez at [facility], came to the hospital for evaluation and stabilization of depressive symptoms, inability to function, patient was afraid to stay alone in her apartment, forgetfulness, uncontrolled anxiety, initially patient required medical admission for electrolyte balance and bradycardia, patient was successfully treated medically side, was transferred to the psychiatric inpatient unit on October 17, patient requires further evaluation and stabilization. Please see admission note for more detailed information. Patient was stabilized on the following medications: on Abilify patient developed severe upper extremity and lower extremity tremor it was discontinued Seroquel patient was not able to tolerate because of somnolence Geodon was started and titrated to 40 mg daily for mood stabilization Prozac was continued 40 mg daily for anxiety and depression Klonopin was increased to 0.5 mg twice a day for anxiety Depakote 250 mg at the nighttime was continued for mood stabilization. Patient tolerated medications well, no side effects observed or reported, aims 0, no EPS. Family meeting took place here in [place], please see notes for more detailed information. Overall patient improved significantly, mood improved, there is no periods of hopelessness or helplessness, patient had future oriented plans, patient has good support from her [id number] and her son, patient had good appetite and sleep, and eventually patient deemed ready for discharge. Patient had therapeutic milieu, supportive therapy, medication management, blake ent also was attending groups. At the time of the discharge patient pose no imminent danger to self or others, will be following up at [facility], information about follow up appointment, time and address provided to the pt, (see SW note for more detailed information). It is a patient responsibility to follow up with outpatient clinic, PMD as well as specialists In case patient will need to obtain results of studies pending at discharge, patient was provided with contact information of Psychiatric Inpatient unit [phone] as well as Medical Record Department [phone], as well as [facility] team [phone]. Patient denies smoking, denied drinking, denied drug use pt was provided with prescriptions (see medication reconciliation form) Pt was educated about safety plan in case of worsening of symptoms or in case of suicidal or homicidal ideation call 911 or go to the nearest ER, also was educated to take meds as prescribed and stay away from drugs, pt verbalized understanding. Lab Results 10/18/18 11:17: POC Glucose (mg/dL) 207 H 10/18/18 07:55: Triglycerides 223 H, Cholesterol 187, LDL Cholesterol Direct 80, HDL Cholesterol 55 10/18/18 07:55: Free T4 1.79, TSH 3rd Generation 3.76 10/18/18 07:26: POC Glucose (mg/dL) 153 H 10/17/18 20:55: POC Glucose (mg/dL) 221 H Vital Signs Temp Pulse Resp BP Pulse Ox 10/18/18 09:29 166/82 H 10/17/18 16:37 17 97 10/17/18 16:36 98.8 F 58 L 17 153/95 H 58 L - Diagnosis (1) Bipolar disorder Status: Chronic Priority: High (2) JAYLIN (generalized anxiety disorder) Status: Chronic Priority: High - Final Diagnosis (DSM 5) Condition upon Discharge: GOOD Disposition: HOME/ ROUTINE Follow-up Treatment Plan: At the time of the discharge patient pose no imminent danger to self or others, will be following up at [facility], information about follow up appointment, time and address provided to the pt, (see SW note for more detailed information). It is a patient responsibility to follow up with outpatient clinic, PMD as well as specialists Prescriptions/Medication Reconciliation: RX: Aspirin [Ecotrin] 81 mg PO DAILY #7 tabec RX: Atorvastatin [Lipitor] 20 mg PO DIN #7 tab RX: clonazePAM [Klonopin] 0.5 mg PO AMHS #30 tab RX: Divalproex [Depakote ER(ONCE DAILY)] 250 mg PO HS #14 ter RX: Famotidine [Pepcid] 40 mg PO DAILY #7 tab Fluoxetine HCl [Prozac] 40 mg PO DAILY #14 capsule RX: Glimepiride [amaRYL] 4 mg PO DAILY #7 tab RX: Ramipril [Altace] 10 mg PO DAILY #7 cap RX: SITagliptin [Januvia] 100 mg PO DAILY #7 tab RX: Ziprasidone [Geodon Cap] 20 mg PO AMHS #30 cap - Smoking Cessation Smoking Cessation Medication prescribed: No Reason for not providing: Denies smoking - Antipsychotic Medications Pt discharged on 2 or more routine antipsychotic medications: No
== END 2018-10-28 13:21 | disposition home or self-care (01) | DRG 885 ==
LOC: PSYC 15:53
PROVIDERS: ADMIT Psychiatry & Neurology Psychiatry; ATTEND Psychiatry & Neurology Psychiatry
PROC: GZ3ZZZZ Medication Management (ICD-10-PCS; principal; 2018-10-18)
DX: F31.4 Bipolar disorder, current episode depressed, severe, without psychotic features (principal); F41.1 Generalized anxiety disorder; E10.40 Type 1 diabetes mellitus with diabetic neuropathy, unspecified; I10 Essential (primary) hypertension; G25.1 Drug-induced tremor; T43.595A Adverse effect of other antipsychotics and neuroleptics, initial encounter; E78.5 Hyperlipidemia, unspecified; G89.29 Other chronic pain; M54.9 Dorsalgia, unspecified; Z86.73 Personal history of transient ischemic attack (TIA), and cerebral infarction without residual deficits; Z85.820 Personal history of malignant melanoma of skin; Z87.891 Personal history of nicotine dependence